=== PATIENT | female | born 1985 | race Caucasian/White ===

== ENCOUNTER 2017-10-13 18:03 | Inpatient (IN) | payer OTHER ==
[~2017-10-13] VITALS: Ht 160 cm; Wt 77.6 kg
[~2017-10-13 18:03] MED LIST: CARAFATE1 GM PO; CELEXA20 MG PO; FLUDROCORTISON0.1 MG PO; HYDROCORTISONE10 MG PO; HYDROCORTISONE20 MG PO; PANTOPRAZOLE SO40 MG PO; PROMETHAZINE HC25 M1 PO; SYNTHROID75 MCG PO; ULTRAM50 MG PO; ZOFRAN ODT4 MG; ZOFRAN ODT4 MG PO
--- OUTSIDE RECORDS SUMMARY | 2017-10-13 18:06 | XMS REPORT | Clinical Summary ---
Author Author [facility] Organization [facility] Address Unknown Phone Unavailable Care Team Providers Care Senior Care Provider Name Role Phone Robert Stokes MD PCP Allergies Active Allergy Reactions Severity Noted Date Comments Clindamycin 04/25/2016 Gabapentin 04/25/2016 Penicillins 04/25/2016 Current Medications Prescription Sig. Disp. Refills Start End Date Status Date hydrocortisone (CORTEF) Take 20 mg by mouth Active 10 MG tablet daily. PT throw up today 08/13/2017 hydrocortisone (CORTEF) Take 10 mg by mouth Active 10 MG tablet daily. PT throw up today 08/13/2017 [id number] Take 1 tablet by mouth Active n-dss 160 mg iron-1 mg-60 every morning. PT throw mcg tablet up today 08/13/2017 LORAZepam (ATIVAN) 1 MG Take 1 mg by mouth every Active tablet 12 (twelve) hours as needed for anxiety. zolpidem (AMBIEN) 10 mg Take 10 mg by mouth Active tablet nightly as needed for sleep. promethazine (PHENERGAN) Insert 1 suppository (25 10 0 09/16/1908/05 Active 25 MG suppository mg total) into the rectum suppository 18 18 every 6 (six) hours as needed for nausea or vomiting for up to 30 days. promethazine (PHENERGAN) Take 1 tablet (12.5 mg 10 tablet 0 09/16/19 10/16/19 Active 12.5 MG tablet total) by mouth every 6 18 18 (six) hours as needed for nausea or vomiting for up to 30 days. sulfamethoxazole-trimetho Take 1 tablet by mouth 2 14 tablet 0 07/22/19 prim (BACTRIM DS) 800-160 (two) times a day for 7 17 18 mg per tablet days. smx-tmp DS (BACTRIM) 800-160 mg tabs (1tab q12 D10) ondansetron ODT (ZOFRAN Take 1 tablet (4 mg 15 tablet 0 07/15/2004/05 ODT) 4 MG disintegrating total) by mouth every 8 17 18 tablet (eight) hours as needed for nausea or vomiting for up to 10 days. levothyroxine (SYNTHROID, Take 75 mcg by mouth 09/13/19 Discontin LEVOXYL) 75 mcg tablet every morning. 18 ued mirtazapine (REMERON) 7.5 Take 1 tablet (7.5 mg 30 tablet 0 08/05/19 09/04/19 MG tablet total) by mouth nightly 18 18 for 30 days. clonAZEPAM (KlonoPIN) 0.5 Take 1 tablet (0.5 mg 15 tablet 0 08/05/19 08/10/19 MG tablet total) by mouth 3 (three) 18 18 times a day as needed for anxiety for up to 5 days. promethazine (PHENERGAN) Take 1 tablet (12.5 mg 21 tablet 0 08/05/19 08/12/19 12.5 MG tablet total) by mouth every 6 18 18 (six) hours as needed for nausea or vomiting for up to 7 days. QUEtiapine (SEROquel) 25 Take 1 tablet (25 mg 60 tablet 0 08/05/19 09/04/19 MG tablet total) by mouth 2 (two) 18 18 times a day for 30 days. pantoprazole (PROTONIX) Take 1 tablet (40 mg 30 tablet 0 08/05/19 40 MG EC tablet total) by mouth daily for 18 18 30 days. traMADol (ULTRAM) 50 mg Take 1 tablet (50 mg 21 tablet 0 08/05/19 tablet total) by mouth every 6 18 18 (six) hours as needed for moderate pain for up to 7 days. Active Problems Problem Noted Date Dehydration 08/04/2017 Intractable nausea and vomiting 08/03/2017 Anxiety 08/03/2017 Hypothyroidism 08/03/2017 Pheochromocytoma 08/03/2017 Gastroenteritis 08/03/2017 Addisonian crisis 08/02/2017 Encounters Date Type Specialty Care Team Description 09/13/2017 [facility] General Surgery Narendra Perez MD Addisonian crisis - Encounter Ricardo Garcia DO (Primary Dx); 09/15/2017 Stanley Murrieta MD Intractable vomiting with Mikey Eller MD nausea, unspecified vomiting type; Left flank pain; Dehydration 08/02/2017 [facility] Internal Medicine Jewel Chamberlain MD Addisonian crisis - Encounter Ricardo Garcia DO (Primary Dx); 08/05/2017 Dehydration; Intractable vomiting with nausea, unspecified vomiting type; Abdominal pain, unspecified abdominal location; Anemia, unspecified type; Anxiety 07/15/2017 Emergency Emergency Medicine Rosy Salas MD Cellulitis of left upper extremity (Primary Dx) 06/25/2017 Emergency Emergency Medicine [place] MD Electrolyte abnormality (Primary Dx) after 10/12/2016 Social History Tobacco Use Types Packs/Day Years Used Date Former Smoker Cigarettes Quit: 09/23/2016 Smokeless Tobacco: Never Used Alcohol Use Drinks/Week oz/Week Comments Yes occasional Sex Assigned at Date Recorded Not on file Last Filed Vital Signs Vital Sign Reading Time Taken Blood Pressure 114/69 09/15/2017 7:34 AM MACHINE ETCHER Pulse 109 09/15/2017 7:34 AM MACHINE ETCHER Temperature 36.7 C (98 F) 09/15/2017 7:34 AM MACHINE ETCHER Respiratory Rate 16 09/15/2017 7:34 AM MACHINE ETCHER Oxygen Saturation 99% 09/15/2017 7:34 AM MACHINE ETCHER Inhaled Oxygen - - Concentration Weight 65.8 kg (145 lb) 09/13/2017 12:42 PM MACHINE ETCHER Height 157.5 cm (5' 2") 09/13/2017 12:42 PM MACHINE ETCHER Body Mass Index 26.52 09/13/2017 12:42 PM MACHINE ETCHER Plan of Treatment Health Maintenance Due Date Last Done Comments PAP SMEAR 01/02/2004 INFLUENZA VACCINE 02/14/2017 Procedures Procedure Name Priority Date/Time Associated Diagnosis Comments MUSCULOSKELETAL Routine 07/16/2017 Results for this ULTRASOUND 10:36 AM MACHINE ETCHER procedure are in the results section. after 10/12/2016 Results * Urinalysis screen and microscopy, with reflex to culture (09/15/2017 12:30 AM) Only the most recent of 2 results within the time period is included. Component Value Ref Range Specimen site Clean catch Color, UA Colorless Appearance, UA Clear Specific gravity, UA 1.001 1.001 - 1.035 pH, UA 6.0 5.0 - 8.5 Protein, UA Negative Negative Glucose, UA 3+ (A) Negative Ketones, UA Negative Negative Bilirubin, UA Negative Negative Blood, UA Negative Negative Nitrite, UA Negative Negative Urobilinogen, UA Negative <2.0 Leukocyte esterase, UA Negative Negative WBC, UA 0-5 0 - 4 /HPF RBC, UA 0-5 0 - 2 /HPF Bacteria, UA Trace None seen Yeast, UA None seen Yeast with pseudohyphae, None seen UA Specimen Performing Laboratory Urine [facility] DEPARTMENT OF PATHOLOGY AND GENOMIC MEDICINE [address] [place] [address] [place] [address] * hCG qualitative, urine screen (09/15/2017 12:30 AM) Only the most recent of 2 results within the time period is included. Component Value Ref Range hCG qualitative, urine Negative Negative Comment: The manufacturers stated sensitivity of HcG test for serum is >/=10 mIU/ml and urine is >/=20mIU/ml. Specimen Performing Laboratory Urine [facility] DEPARTMENT OF PATHOLOGY AND GENOMIC MEDICINE [address] [place] [address] [place] [address] * Estimated GFR (09/14/2017 6:23 AM) Only the most recent of 6 results within the time period is included. Component Value Ref Range GFR Non Af Amer 82 mL/min/1.73 m2 GFR Af Amer >90 mL/min/1.73 m2 Comment: Chronic kidney disease: <60 mL/min/1.73m2 Kidney failure: <15 mL/min/1.73m2 The estimated GFR is calculated from the IDMS-traceable Modification of Diet in Renal Disease Equation. The accuracy of the calculation is poor when the creatinine is normal. Calculated values >90 mL/min/1.73m2 are not reported. This equation has not been validated in children (<18 years), women, the elderly (>70 years), or ethnic groups other than Caucasians and Americans. Specimen Performing Laboratory Plasma specimen [facility] DEPARTMENT OF PATHOLOGY AND GENOMIC MEDICINE [address] [place] [address] [place] [address] * CBC with platelet and differential (09/14/2017 6:23 AM) Only the most recent of 6 results within the time period is included. Component Value Ref Range WBC 11.44 (H) 4.50 - 11.00 k/uL RBC 4.10 (L) 4.20 - 5.50 m/uL HGB 11.8 (L)Comment: reran other result is 11.8 12.0 - 16.0 g/dL ?received > 1800 ml fluid HCT 36.1 (L) 37.0 - 47.0 % MCV 88.0 82.0 - 100.0 fL MCH 28.8 27.0 - 34.0 pg MCHC 32.7 31.0 - 37.0 g/dL RDW - SD 46.0 37.0 - 55.0 fL MPV 10.5 8.8 - 13.2 fL Platelet count 307 150 - 400 k/uL Nucleated RBC 0.00 /100 WBC Neutrophils 71.2 (H) 39.0 - 69.0 % Lymphocytes 21.6 (L) 25.0 - 45.0 % Monocytes 6.3 0.0 - 10.0 % Eosinophils 0.2 0.0 - 5.0 % Basophils 0.3 0.0 - 1.0 % Immature granulocytes 0.4Comment: "Immature granulocytes" 0.0 - 1.0 % (promyelocytes, myelocytes, metamyelocytes) Specimen Performing Laboratory Blood [facility] PATHOLOGY AND [facility] [address] [place] [address] * Basic metabolic panel (09/14/2017 6:23 AM) Only the most recent of 3 results within the time period is included. Component Value Ref Range Sodium 134 (L) 135 - 148 mEq/L Potassium 4.6 3.5 - 5.0 mEq/L Chloride 102 98 - 112 mEq/L CO2 22 (L) 24 - 31 mEq/L Anion gap 10 7 - 15 mEq/L Comment: Starting from October , anion gap calculation no longer incorporates potassium. Please note the change. BUN 11 6 - 20 mg/dL Creatinine 0.8 0.5 - 0.9 mg/dL Glucose 89 65 - 99 mg/dL Calcium 10.5 (H) 8.3 - 10.2 mg/dL Specimen Performing Laboratory Plasma specimen [facility] PATHOLOGY AND [facility] [address] [place] [address] * Troponin (09/13/2017 5:26 PM) Only the most recent of 2 results within the time period is included. Component Value Ref Range Troponin <0.300 0.000 - 0.300 ng/mL Comment: 0.30 - 1.49 ng/ml May indicate increased risk of acute coronary syndrome. >=1.5 ng/ml Consistent with acute myocardial infarction. The diagnostic value of a single normal or non-diagnostic result is questionable. Serial samples at 2-6 hour intervals are required to rule out acute myocardial injury. Specimen Performing Laboratory Plasma specimen [facility] DEPARTMENT OF PATHOLOGY AND GENOMIC MEDICINE [address] [place] [address] * ECG 12 lead (09/13/2017 3:28 PM) Only the most recent of 3 results within the time period is included. Component Value Ref Range Ventricular rate 95 Atrial rate 95 MO interval 156 QRSD interval 88 QT interval 356 QTC interval 447 P axis 1 49 QRS axis 1 70 T wave axis 38 EKG impression Normal sinus rhythm-Normal ECG-In automated comparison with ECG of 02-AUG-2017 09:52,-No significant change was found- Specimen Performing Laboratory [facility] [address] [place] [address] * CT Abdomen Pelvis W Wo Contrast (09/13/2017 3:07 PM) Specimen Performing Laboratory [facility] [address] [place] [address] Narrative EXAMINATION:CT ABDOMEN PELVIS W WO CONTRAST CLINICAL HISTORY:L flank painpossible Flathead's crisis vs renal stone vs perinephric absces TECHNIQUE: CT of the abdomen and pelvis was performed without contrast utilizing renal stone protocol. Subsequently, postcontrast CT of the abdomen and pelvis was obtained with multiphase renal mass and CT urogram protocol. Sagittal and coronal computerized reformatted images were also obtained. COMPARISON:None. FINDINGS: There is a small 11 mm apparent cyst within the liver increased slightly when compared the patient's previous from September 30, 2014 at which time it measured approximately 9 mm. The liver otherwise appears normal in size and texture. The spleen appears unremarkable. The adrenal glands are diminutive and not well-visualized. There are clips in the gallbladder fossa from previous cholecystectomy. The pancreas and adrenal glands appear normal. There is moderate gas and stool present in the colon. The appendix appears normal. The urinary bladder appears unremarkable. The uterus is somewhat heterogeneous in appearance. There appear to be follicles associated with both ovaries. There is no substantial free fluid noted in the cul-de-sac. There are no inflammatory changes identified involving bowel The kidneys are not obstructed there are no calculi noted on either side. IMPRESSION: 1. Small follicles associated with the ovaries. 2. There is no perinephric abscess or other renal abnormality or perirenal abnormality. 3. 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 No definitive calcifications in the area of the adrenal glands are visualized. 4. Post cholecystectomy. 5. Small cyst within the liver adjacent to the falciform ligament [id number] Procedure Note Hm Interface, Radiology Results Incoming - 09/13/2017 3:37 PM MACHINE ETCHER EXAMINATION: CT ABDOMEN PELVIS W WO CONTRAST CLINICAL HISTORY: L flank pain possible Rigo's crisis vs renal stone vs perinephric absces TECHNIQUE: CT of the abdomen and pelvis was performed without contrast utilizing renal stone protocol. Subsequently, postcontrast CT of the abdomen and pelvis was obtained with multiphase renal mass and CT urogram protocol. Sagittal and coronal computerized reformatted images were also obtained. COMPARISON: None. FINDINGS: There is a small 11 mm apparent cyst within the liver increased slightly when compared the patient's previous from September 30, 2014 at which time it measured approximately 9 mm. The liver otherwise appears normal in size and texture. The spleen appears unremarkable. The adrenal glands are diminutive and not well-visualized. There are clips in the gallbladder fossa from previous cholecystectomy. The pancreas and adrenal glands appear normal. There is moderate gas and stool present in the colon. The appendix appears normal. The urinary bladder appears unremarkable. The uterus is somewhat heterogeneous in appearance. There appear to be follicles associated with both ovaries. There is no substantial free fluid noted in the cul-de-sac. There are no inflammatory changes identified involving bowel The kidneys are not obstructed there are no calculi noted on either side. IMPRESSION: 1. Small follicles associated with the ovaries. 2. There is no perinephric abscess or other renal abnormality or perirenal abnormality. 3. 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 No definitive calcifications in the area of the adrenal glands are visualized. 4. Post cholecystectomy. 5. Small cyst within the liver adjacent to the falciform ligament [id number] * Partial thromboplastin time, activated (09/13/2017 1:50 PM) Only the most recent of 2 results within the time period is included. Component Value Ref Range PTT 29.9 23.0 - 36.0 sec Comment: PTT therapeutic range for unfractionated heparin is 61.0-112.0 seconds which corresponds to Anti-Xa 0.3-0.7 U/ml. Specimen Performing Laboratory Blood [facility] PATHOLOGY [address] [place] [address] * Prothrombin time with INR (09/13/2017 1:50 PM) Only the most recent of 2 results within the time period is included. Component Value Ref Range Prothrombin time 13.1 12.0 - 15.0 sec INR 1.0 Comment: The International Normalized Ratio (INR) is a therapeutic monitoring tool for patients who are stable on oral anticoagulant therapy. An INR of 2.0-3.0 is suggested for deep vein thrombosis/pulmonary embolism. Specimen Performing Laboratory Blood [facility] PATHOLOGY AND [address] [place] [address] * hCG qualitative, serum screen (09/13/2017 1:50 PM) Component Value Ref Range hCG qualitative, serum Negative Specimen Performing Laboratory Blood [facility] PATHOLOGY [address] [place] [address] * Magnesium level (09/13/2017 1:50 PM) Only the most recent of 2 results within the time period is included. Component Value Ref Range Magnesium 2.2 1.6 - 2.6 mg/dL Specimen Performing Laboratory Plasma specimen [facility] PATHOLOGY AND [address] [place] [address] * Lipase level (09/13/2017 1:50 PM) Only the most recent of 3 results within the time period is included. Component Value Ref Range Lipase 41 13 - 60 U/L Specimen Performing Laboratory Plasma specimen [facility] PATHOLOGY [address] [place] [address] * Hepatic function panel (09/13/2017 1:50 PM) Component Value Ref Range Albumin 4.5 3.5 - 5.0 g/dL Total bilirubin 0.5 0.0 - 1.2 mg/dL Bilirubin direct 0.1 0.0 - 0.3 mg/dL Alkaline phosphatase 51 35 - 104 U/L Protein 7.8 6.3 - 8.3 g/dL Comment: [place] 4.6-7.0 g/dL 1 week 4.4-7.6 g/dL 7 months-1year 5.1-7.3 g/dL 1-2 years 5.6-7.5 g/dL >3 years 6.0-8.0 g/dL 18-150 6.3-8.3 g/dL ALT 18 5 - 50 U/L AST 24 10 - 35 U/L Specimen Performing Laboratory Plasma specimen [facility] DEPARTMENT OF PATHOLOGY AND GENOMIC MEDICINE [address] [place] [address] * ECG ED Preliminary Interpretation - NOT AN ORDER (09/13/2017 1:05 PM) Only the most recent of 3 results within the time period is included. Dora Perez MD 09/13/20176:34 PM ECG ED Preliminary Interpretation - Not an Order Performed by: NARENDRA PEREZ Authorized by: NARENDRA PEREZ ECG reviewed by ED Physician in the absence of a supply clerk: yes Previous ECG: Previous ECG:Compared to current Comparison ECG info:08/03/17 Similarity:No change Interpretation: Interpretation: normal Rate: ECG rate:95 ECG rate assessment: normal Rhythm: Rhythm: sinus rhythm Ectopy: Ectopy: none QRS: QRS axis:Normal Conduction: Conduction: normal ST segments: ST segments:Normal T waves: T waves: normal * Cortisol level, random (08/03/2017 5:15 AM) Only the most recent of 2 results within the time period is included. Component Value Ref Range Cortisol, random <1 ug/dL Comment: Reference Ranges are not established for non-timed Cortisol levels. Reference Range for Timed Cortisol: 6 - 10 AM 6 - 18 ug/dl 4 - 8 PM 3 - 11 ug/dl Specimen Performing Laboratory Plasma specimen [facility] DEPARTMENT OF PATHOLOGY AND GENOMIC MEDICINE [address] [place] [address] * Comprehensive metabolic panel (08/03/2017 5:15 AM) Only the most recent of 3 results within the time period is included. Component Value Ref Range Sodium 142 135 - 148 mEq/L Potassium 3.5 3.5 - 5.0 mEq/L Chloride 106 98 - 112 mEq/L CO2 25 24 - 31 mEq/L Anion gap 11 7 - 15 mEq/L Comment: Starting from October , anion gap calculation no longer incorporates potassium. Please note the change. BUN 4 (L) 6 - 20 mg/dL Creatinine 0.8 0.5 - 0.9 mg/dL Glucose 94 65 - 99 mg/dL Calcium 9.4 8.3 - 10.2 mg/dL Protein 5.5 (L) 6.3 - 8.3 g/dL Comment: [place] 4.6-7.0 g/dL 1 week 4.4-7.6 g/dL 7 months-1year 5.1-7.3 g/dL 1-2 years 5.6-7.5 g/dL >3 years 6.0-8.0 g/dL 18-150 6.3-8.3 g/dL Albumin 3.2 (L) 3.5 - 5.0 g/dL A/G ratio 1.4 0.7 - 3.8 Alkaline phosphatase 47 35 - 104 U/L AST 12 10 - 35 U/L ALT 9 5 - 50 U/L Total bilirubin <0.2 0.0 - 1.2 mg/dL Specimen Performing Laboratory Plasma specimen [facility] PATHOLOGY AND [facility] [id number] [place] [address] [place] [address] * hCG quantitative, serum (08/02/2017 1:52 PM) Component Value Ref Range hCG quantitative, serum 1 0 - 5 mIU/mL Comment: Reference range for HCG Quant applies to males and non- females. Post Menopausal 0.0 - 8.1 mIU/mL Specimen Performing Laboratory Plasma specimen [facility] DEPARTMENT OF PATHOLOGY AND [facility] MEDICINE [address] [place] [address] * CT Abdomen Pelvis W Contrast (08/02/2017 1:02 PM) Specimen Performing Laboratory [facility] [address] [place] [address] Narrative EXAMINATION:CT ABDOMEN PELVIS W CONTRAST CLINICAL HISTORY:N V COMPARISON:October 14, 2015 TECHNIQUE: Multiple axial CT images of the Abdomen and pelvis were obtained With IV contrast . Sagittal and coronal reconstructions were done. CT imaging was performed with iterative reconstruction technique and/or automated exposure control to reduce radiation dose. FINDINGS: HEPATOBILIARY:Stable hepatic hypodensity likely a cyst measures 1.3 cm. No suspicious focal hepatic lesions. No intrahepatic biliary dilation. The main portal vein is patent. GALLBLADDER: Absent. SPLEEN:No splenomegaly. PANCREAS:No focal masses or ductal dilation. ADRENALS:No adrenal nodules. KIDNEYS:No hydronephrosis, stones or solid masses. PERITONEUM/RETROPERITONEUM:No free air or fluid. No lymphadenopathy. ABDOMINAL AORTA/IVC: No aneurysm or dissection. GI TRACT:Visualized portions of the bowel demonstrate no distention or wall thickening. There are no signs of appendicitis or diverticulitis. PELVIC ORGANS/BLADDER:The urinary bladder is fluid-filled. Uterus and left ovary are unremarkable. A right ovarian cyst is stable at 2 cm. BONES AND SOFT TISSUES:No acute abnormality. VISUALIZED LOWER CHEST: No acute abnormality. IMPRESSION: No acute abnormality. [facility]-[id number] Procedure Note [facility], Radiology Results - 08/02/2017 1:23 PM MACHINE ETCHER EXAMINATION: CT ABDOMEN PELVIS W CONTRAST CLINICAL HISTORY: N V COMPARISON: October 14, 2015 TECHNIQUE: Multiple axial CT images of the Abdomen and pelvis were obtained With IV contrast . Sagittal and coronal reconstructions were done. CT imaging was performed with iterative reconstruction technique and/or automated exposure control to reduce radiation dose. FINDINGS: HEPATOBILIARY: Stable hepatic hypodensity likely a cyst measures 1.3 cm. No suspicious focal hepatic lesions. No intrahepatic biliary dilation. The main portal vein is patent. GALLBLADDER: Absent. SPLEEN: No splenomegaly. PANCREAS: No focal masses or ductal dilation. ADRENALS: No adrenal nodules. KIDNEYS: No hydronephrosis, stones or solid masses. PERITONEUM/RETROPERITONEUM: No free air or fluid. No lymphadenopathy. ABDOMINAL AORTA/IVC: No aneurysm or dissection. GI TRACT: Visualized portions of the bowel demonstrate no distention or wall thickening. There are no signs of appendicitis or diverticulitis. PELVIC ORGANS/BLADDER: The urinary bladder is fluid-filled. Uterus and left ovary are unremarkable. A right ovarian cyst is stable at 2 cm. BONES AND SOFT TISSUES: No acute abnormality. VISUALIZED LOWER CHEST: No acute abnormality. IMPRESSION: No acute abnormality. [facility]-[id number] * Adrenocorticotropic hormone (08/02/2017 11:35 AM) Component Value Ref Range Adrenocorticotropic 99.1 (H) 7.2 - 63.3 pg/mL hormone Specimen Performing Laboratory Blood [facility] DEPARTMENT OF PATHOLOGY AND GENOMIC MEDICINE [address] [place] [address] * Influenza antigen (08/02/2017 9:45 AM) Component Value Ref Range Influenza antigen Negative for Influenza A/B antigen. Comment: Specimen Information Specimen Source: Nares Specimen Site: Not specified Specimen Performing Laboratory Nares - Not specified [facility] PATHOLOGY [address] [place] [address] * Smear review (08/02/2017 9:40 AM) Component Value Ref Range Platelet slide review Decreased (A) Specimen Performing Laboratory [facility] PATHOLOGY AND [address] [place] [address] * Thyroid stimulating hormone (08/02/2017 9:40 AM) Component Value Ref Range TSH 3.17 0.27 - 4.20 uIU/mL Specimen Performing Laboratory Plasma specimen [facility] PATHOLOGY [address] [place] [address] * T4, free (08/02/2017 9:40 AM) Component Value Ref Range T4, free 1.04 0.90 - 1.70 ng/dL Specimen Performing Laboratory Plasma specimen [facility] PATHOLOGY AND [address] [place] [address] * MUSCULOSKELETAL ULTRASOUND (07/16/2017 10:36 AM) Narrative Rosy Salas MD 07/16/2017 10:36 AM Musculoskeletal Ultrasound Performed by: ROSY SALAS Authorized by: ROSY SALAS Procedure details: Indications: abscess and cellulitis Transverse view:Visualized Longitudinal view:Visualized Findings: Fracture: not identified Tendon rupture: not identified Muscle tear: not identified Infant hip effusion: not identified Joint effusion: not identified Comments: Cobblestoning c/w cellulitis seen over the right upper extremity above the elbow in a small area about the size of a half-dollar. No fluid collections amenable to drainage are seen. * Phosphorus level (06/25/2017 8:11 AM) Component Value Ref Range Phosphorus 2.8 2.4 - 4.5 mg/dL Specimen Performing Laboratory Plasma specimen [facility] DEPARTMENT PATHOLOGY [address] [place] [address] after 10/12/2016 Insurance Payer Benefit Subscriber ID Type Phone Address Plan / Group PENDING MEDICAID PENDING Medicaid MEDICAID
--- OUTSIDE RECORDS SUMMARY | 2017-10-13 18:06 | XMS REPORT ---
Author Author 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 Allergies, Adverse Reactions, Alerts This patient has no known allergies or adverse reactions. Medications This patient has no known medications. Results Test Description Test Time Test Comments Text Results Atomic Results Result Comments CBC W/PLT COUNT & AUTO DIFFERENTIAL 2017-03-18 14:30:00 WHITE BLOOD CELL COUNT (BEAKER) (test lyuq=927) 6.5 K/ L 3.5-10.5 RED BLOOD CELL COUNT (BEAKER) (test vmrf=008) 4.27 M/ L 3.93-5.22 HEMOGLOBIN (BEAKER) (test yysb=950) 12.6 GM/DL 11.2-15.7 HEMATOCRIT (BEAKER) (test nnqk=654) 39.2 % 34.1-44.9 MEAN CORPUSCULAR VOLUME (BEAKER) (test tduj=644) 91.8 fL 79.4-94.8 MEAN CORPUSCULAR HEMOGLOBIN (BEAKER) (test iyll=464) 29.5 pg 25.6-32.2 MEAN CORPUSCULAR HEMOGLOBIN CONC (BEAKER) (test erwe=070) 32.1 GM/DL 32.2- 35.5 RED CELL DISTRIBUTION WIDTH (BEAKER) (test vtto=725) 14.4 % 11.7-14.4 PLATELET COUNT (BEAKER) (test olst=080) 331 K/CU MM 150-450 MEAN PLATELET VOLUME (BEAKER) (test bqip=503) 10.5 fL 9.4-12.3 NUCLEATED RED BLOOD CELLS (BEAKER) (test vzcx=139) 0 /100 WBC 0-0 NEUTROPHILS RELATIVE PERCENT (BEAKER) (test dved=613) 36 % LYMPHOCYTES RELATIVE PERCENT (BEAKER) (test ojnp=934) 53 % MONOCYTES RELATIVE PERCENT (BEAKER) (test xcxs=718) 6 % EOSINOPHILS RELATIVE PERCENT (BEAKER) (test wozn=224) 4 % BASOPHILS RELATIVE PERCENT (BEAKER) (test rygy=808) 1 % NEUTROPHILS ABSOLUTE COUNT (BEAKER) (test fdww=398) 2.32 K/ L 1.56-6.13 LYMPHOCYTES ABSOLUTE COUNT (BEAKER) (test ubki=218) 3.40 K/ L 1.18-3.74 MONOCYTES ABSOLUTE COUNT (BEAKER) (test xnok=842) 0.41 K/ L 0.24-0.36 EOSINOPHILS ABSOLUTE COUNT (BEAKER) (test fuky=323) 0.28 K/ L 0.04-0.36 BASOPHILS ABSOLUTE COUNT (BEAKER) (test fzyq=384) 0.03 K/ L 0.01-0.08 IMMATURE GRANULOCYTES-RELATIVE PERCENT (BEAKER) (test feka=3106) 0 % 0-1 (MANUAL DIFFERENTIAL)2017-03-18 14:30:00* Test Item Value Reference Range Comments TOTAL COUNTED (BEAKER) (test zfmo=0624) WBC MORPHOLOGY (BEAKER) (test gytx=945) Normal PLT MORPHOLOGY (BEAKER) (test voei=304) Normal RBC MORPHOLOGY (BEAKER) (test kurd=180) Normal [id number] 14:03:00* Test Item Value Reference Range Comments LIPASE (BEAKER) (test xitw=662) 28 U/L 8-78 [id number] 14:03:00* Test Item Value Reference Range Comments AMYLASE (BEAKER) (test ubyg=623) 63 U/L 25-125 HEPATIC FUNCTION [id number] 14:03:00* Test Item Value Reference Range Comments TOTAL PROTEIN (BEAKER) (test igrh=678) 7.3 gm/dL 6.0-8.3 ALBUMIN (BEAKER) (test bvdj=3062) 3.9 g/dL 3.5-5.0 BILIRUBIN TOTAL (BEAKER) (test ujcj=006) 0.5 mg/dL 0.2-1.2 BILIRUBIN DIRECT (BEAKER) (test kskn=544) 0.2 mg/dL 0.1-0.5 ALKALINE PHOSPHATASE (BEAKER) (test nhwj=716) 64 U/L 40-150 AST (SGOT) (BEAKER) (test ccgm=553) 18 U/L 5-34 ALT (SGPT) (BEAKER) (test yzit=560) 11 U/L 6-55 URINALYSIS W/ REFLEX URINE [id number] 13:43:00* Test Item Value Reference Range Comments COLOR (BEAKER) (test zdaa=136) Yellow CLARITY (BEAKER) (test qgto=939) Hazy SPECIFIC GRAVITY UA (BEAKER) (test uuum=965) 1.016 1.001-1.035 PH UA (BEAKER) (test acno=822) 5.5 5.0-8.0 PROTEIN UA (BEAKER) (test nddc=761) Negative Negative GLUCOSE UA (BEAKER) (test bjxm=230) Negative Negative KETONES UA (BEAKER) (test jfxs=595) Negative Negative BILIRUBIN UA (BEAKER) (test xufy=361) Negative Negative BLOOD UA (BEAKER) (test edrw=585) Negative Negative NITRITE UA (BEAKER) (test cddd=874) Negative Negative LEUKOCYTE ESTERASE UA (BEAKER) (test hhzc=665) Large Negative UROBILINOGEN UA (BEAKER) (test viwu=139) 0.2 mg/dL 0.2-1.0 RBC UA (BEAKER) (test nzsq=190) 0 /HPF WBC UA (BEAKER) (test wmcn=713) 1 /HPF BACTERIA (BEAKER) (test rfyj=525) Rare MUCUS (BEAKER) (test khaq=1247) Rare SQUAMOUS EPITHELIAL (BEAKER) (test rjey=656) 4 /HPF HYALINE CASTS (BEAKER) (test ctba=889) 2 /LPF SOURCE(BEAKER) (test axbg=0005) SCREEN, [id number] 13:42:00* Test Item Value Reference Range Comments TEST URINE (BEAKER) (test aori=018) Negative BASIC METABOLIC [id number] 13:21:00* Test Item Value Reference Range Comments SODIUM (BEAKER) (test wefj=303) 135 meq/L 136-145 POTASSIUM (BEAKER) (test nuvv=420) 4.3 meq/L 3.5-5.1 CHLORIDE (BEAKER) (test zrji=756) 109 meq/L 98-107 CO2 (BEAKER) (test vwza=181) 19 meq/L 22-29 BLOOD UREA NITROGEN (BEAKER) (test vknx=414) 10 mg/dL 7-21 CREATININE (BEAKER) (test disd=149) 0.84 mg/dL 0.57-1.25 GLUCOSE RANDOM (BEAKER) (test rfgw=692) 75 mg/dL 70-105 CALCIUM (BEAKER) (test wmcf=395) 10.4 mg/dL 8.4-10.2 EGFR (BEAKER) (test abzd=1633) 78 mL/min/1.73 sq m ESTIMATED GFR IS NOT ACCURATE CREATININE CLEARANCE IN PREDICTING GLOMERULAR FILTRATION RATE. ESTIMATED GFR IS NOT APPLICABLE FOR DIALYSIS PATIENTS. BLOOD [id number] 12:20:00* Test Item Value Reference Range Comments CULTURE (BEAKER) (test lsfu=8778) No growth in 5 days BLOOD [id number] 12:20:00* Test Item Value Reference Range Comments CULTURE (BEAKER) (test fwij=2105) No growth in 5 days BLOOD [id number] 12:20:00* Test Item Value Reference Range Comments CULTURE (BEAKER) (test nxap=8172) No growth in 5 days POCT-GLUCOSE [id number] 12:13:00* Test Item Value Reference Range Comments POC-GLUCOSE METER (BEAKER) (test edta=6664) 153 mg/dL 70-110 TESTED AT [place] [id number] [facility] [address] POCT-GLUCOSE [id number] 08:00:00* Test Item Value Reference Range Comments POC-GLUCOSE METER (BEAKER) (test guip=4344) 86 mg/dL 70-110 TESTED AT [address] [address] CBC (HEMOGRAM ONLY)2016-12-26 06:37:00* Test Item Value Reference Range Comments WHITE BLOOD CELL COUNT (BEAKER) (test dprs=691) 5.9 K/ L 4.0-10.0 RED BLOOD CELL COUNT (BEAKER) (test ovde=900) 3.73 M/ L 4.00-5.00 HEMOGLOBIN (BEAKER) (test eejc=083) 11.2 GM/DL 12.0-15.0 HEMATOCRIT (BEAKER) (test ntkn=214) 34.4 % 36.0-45.0 MEAN CORPUSCULAR VOLUME (BEAKER) (test cejh=518) 92.3 fL 82.0-99.0 MEAN CORPUSCULAR HEMOGLOBIN (BEAKER) (test zgzn=693) 30.0 pg 27.0-33.0 MEAN CORPUSCULAR HEMOGLOBIN CONC (BEAKER) (test siyl=047) 32.5 GM/DL 32.0- 36.0 RED CELL DISTRIBUTION WIDTH (BEAKER) (test vfqu=844) 14.1 % 10.3-14.2 PLATELET COUNT (BEAKER) (test strk=573) 256 K/CU MM 150-430 MEAN PLATELET VOLUME (BEAKER) (test uwep=610) 8.1 fL 6.5-10.5 POCT-GLUCOSE [id number] 06:19:00* Test Item Value Reference Range Comments POC-GLUCOSE METER (BEAKER) (test xxlf=8339) 125 mg/dL 70-110 TESTED AT [place] [id number] POCT-GLUCOSE [id number] 06:14:00* Test Item Value Reference Range Comments POC-GLUCOSE METER (BEAKER) (test guwz=6091) 146 mg/dL 70-110 TESTED AT [address] [address] POCT-GLUCOSE [id number] 05:33:00* Test Item Value Reference Range Comments POC-GLUCOSE METER (BEAKER) (test cbzu=9093) 134 mg/dL 70-110 TESTED AT [address] [address] POCT-GLUCOSE [id number] 05:26:00* Test Item Value Reference Range Comments POC-GLUCOSE METER (BEAKER) (test lovj=0097) 108 mg/dL 70-110 TESTED AT [address] [address] POCT-GLUCOSE [id number] 05:04:00* Test Item Value Reference Range Comments POC-GLUCOSE METER (BEAKER) (test vgxz=8867) 135 mg/dL 70-110 TESTED AT [address] [address] BASIC METABOLIC [id number] 05:03:00* Test Item Value Reference Range Comments SODIUM (BEAKER) (test exmx=015) 139 meq/L 136-145 POTASSIUM (BEAKER) (test lhgq=431) 4.2 meq/L 3.5-5.1 CHLORIDE (BEAKER) (test zigj=354) 106 meq/L 98-107 CO2 (BEAKER) (test egge=816) 25 meq/L 22-29 BLOOD UREA NITROGEN (BEAKER) (test dhur=511) 3 mg/dL 7-21 CREATININE (BEAKER) (test aquj=900) 0.99 mg/dL 0.57-1.25 GLUCOSE RANDOM (BEAKER) (test sqyv=417) 124 mg/dL 70-105 CALCIUM (BEAKER) (test udud=035) 10.2 mg/dL 8.4-10.2 EGFR (BEAKER) (test lbmt=5001) 65 mL/min/1.73 sq m ESTIMATED GFR IS NOT ACCURATE CREATININE CLEARANCE IN PREDICTING GLOMERULAR FILTRATION RATE. ESTIMATED GFR IS NOT APPLICABLE FOR DIALYSIS PATIENTS. POCT-GLUCOSE [id number] 05:02:00* Test Item Value Reference Range Comments POC-GLUCOSE METER (BEAKER) (test szna=9572) 132 mg/dL 70-[address] [facility] [address] [facility] [address] POCT-GLUCOSE [id number] 04:59:00* Test Item Value Reference Range Comments POC-GLUCOSE METER (BEAKER) (test oghv=0155) 113 mg/dL 70-[address] [facility] [address] [facility] [address] BASIC METABOLIC [id number] 18:19:00* Test Item Value Reference Range Comments SODIUM (BEAKER) (test bknx=205) 139 meq/L 136-145 POTASSIUM (BEAKER) (test ckzt=014) 4.1 meq/L 3.5-5.1 CHLORIDE (BEAKER) (test aiqd=730) 108 meq/L 98-107 CO2 (BEAKER) (test hzpl=917) 24 meq/L 22-29 BLOOD UREA NITROGEN (BEAKER) (test wcij=634) 5 mg/dL 7-21 CREATININE (BEAKER) (test txcg=933) 0.88 mg/dL 0.57-1.25 GLUCOSE RANDOM (BEAKER) (test ptig=645) 90 mg/dL 70-105 CALCIUM (BEAKER) (test iunx=610) 9.9 mg/dL 8.4-10.2 EGFR (BEAKER) (test nfnt=1241) 74 mL/min/1.73 sq m ESTIMATED GFR IS NOT ACCURATE CREATININE CLEARANCE IN PREDICTING GLOMERULAR FILTRATION RATE. ESTIMATED GFR IS NOT APPLICABLE FOR DIALYSIS PATIENTS. URINALYSIS W/ [id number] 14:45:00* Test Item Value Reference Range Comments COLOR (BEAKER) (test xjnf=674) Colorless CLARITY (BEAKER) (test igph=231) Clear SPECIFIC GRAVITY UA (BEAKER) (test ljtb=694) 1.006 1.001-1.035 PH UA (BEAKER) (test szew=878) 5.0 5.0-8.0 PROTEIN UA (BEAKER) (test tmwa=405) Negative Negative GLUCOSE UA (BEAKER) (test nkef=532) Negative Negative KETONES UA (BEAKER) (test fdbt=427) Negative Negative BILIRUBIN UA (BEAKER) (test bcql=103) Negative Negative BLOOD UA (BEAKER) (test gjhf=350) Moderate Negative NITRITE UA (BEAKER) (test ovnj=775) Negative Negative LEUKOCYTE ESTERASE UA (BEAKER) (test lhnd=091) Negative Negative UROBILINOGEN UA (BEAKER) (test zlga=879) 0.2 mg/dL 0.2-1.0 RBC UA (BEAKER) (test goec=672) 1 /HPF WBC UA (BEAKER) (test zdzv=788) 1 /HPF SQUAMOUS EPITHELIAL (BEAKER) (test yidl=227) 1 /HPF SOURCE(BEAKER) (test uqxs=0442) Urine, Clean Catch CBC W/PLT COUNT & AUTO [id number] 12:43:00* Test Item Value Reference Range Comments WHITE BLOOD CELL COUNT (BEAKER) (test ylxq=772) 4.9 K/ L 4.0-10.0 RED BLOOD CELL COUNT (BEAKER) (test rkoi=130) 4.27 M/ L 4.00-5.00 HEMOGLOBIN (BEAKER) (test wehq=844) 12.2 GM/DL 12.0-15.0 HEMATOCRIT (BEAKER) (test lvly=434) 38.9 % 36.0-45.0 MEAN CORPUSCULAR VOLUME (BEAKER) (test ydwr=293) 91.1 fL 82.0-99.0 MEAN CORPUSCULAR HEMOGLOBIN (BEAKER) (test llqs=084) 28.6 pg 27.0-33.0 MEAN CORPUSCULAR HEMOGLOBIN CONC (BEAKER) (test mtpd=153) 31.4 GM/DL 32.0- 36.0 RED CELL DISTRIBUTION WIDTH (BEAKER) (test cxdj=962) 14.2 % 10.3-14.2 PLATELET COUNT (BEAKER) (test eqct=324) 287 K/CU MM 150-430 MEAN PLATELET VOLUME (BEAKER) (test smjn=995) 7.9 fL 6.5-10.5 NUCLEATED RED BLOOD CELLS (BEAKER) (test wsuf=269) 0 /100 WBC 0-0 NEUTROPHILS RELATIVE PERCENT (BEAKER) (test dqvz=446) 28 % LYMPHOCYTES RELATIVE PERCENT (BEAKER) (test owbq=504) 54 % MONOCYTES RELATIVE PERCENT (BEAKER) (test vxqt=507) 7 % EOSINOPHILS RELATIVE PERCENT (BEAKER) (test jrbr=241) 10 % BASOPHILS RELATIVE PERCENT (BEAKER) (test lgdx=144) 1 % NEUTROPHILS ABSOLUTE COUNT (BEAKER) (test gnmk=602) 1.35 K/ L 1.80-8.00 LYMPHOCYTES ABSOLUTE COUNT (BEAKER) (test odzh=225) 2.65 K/ L 1.48-4.50 MONOCYTES ABSOLUTE COUNT (BEAKER) (test bglt=190) 0.35 K/ L 0.00-1.30 EOSINOPHILS ABSOLUTE COUNT (BEAKER) (test jdwd=365) 0.49 K/ L 0.00-0.50 BASOPHILS ABSOLUTE COUNT (BEAKER) (test grje=387) 0.05 K/ L 0.00-0.20 0.00(MANUAL DIFFERENTIAL)2016-12-24 12:43:00* Test Item Value Reference Range Comments TOTAL COUNTED (BEAKER) (test fhul=6664) WBC MORPHOLOGY (BEAKER) (test jgps=879) Normal PLT MORPHOLOGY (BEAKER) (test gkca=115) Normal RBC MORPHOLOGY (BEAKER) (test jmnx=060) Normal TROPONIN [id number] 10:08:00* Test Item Value Reference Range Comments TROPONIN I (BEAKER) (test ppqj=155) < ng/mL 0.00-0.03 Effective 06/03/2014: Reference Range ChangeNew: 0.00-0.03 Previous 0.00- 0.15Troponin I (TnI) levels must be interpreted in the context of the presenting symptoms and the clinical findings. Elevated TnI levels indicate myocardial damage, but are not specific for ischemic heart disease. Elevated TnI levels are seen in patients with other cardiac conditions (including myocarditis and congestive heart failure), and slight TnI elevations occur in patients with other conditions, including sepsis, renal failure, acidosis, acute neurological disease, and persistent tachyarrhythmia.CREATINE KINASE (CK) , TOTAL AND [id number] 10:07:00* Test Item Value Reference Range Comments CREATINE KINASE TOTAL (BEAKER) (test newz=768) 33 U/L 29-200 CREATINE KINASE-MB (BEAKER) (test deog=003) 0.3 ng/mL 0.0-6.6 CREATINE KINASE-MB INDEX (BEAKER) (test qjrc=290) 0.9 % Effective 06/03/2014: CK-MB Reference Range ChangeNew: 0.0-6.6 Previous: 0.0- 4.9CK-MB Reference Range:<6.7 Normal6.7-10.0 Borderline>10.0 AbnormalT4, [id number] 21:27:00* Test Item Value Reference Range Comments FREE T4 (BEAKER) (test ajdk=413) 1.02 ng/dL 0.70-1.48 TSH/FREE T4 IF [id number] 20:38:00* Test Item Value Reference Range Comments THYROID STIMULATING HORMONE (BEAKER) (test xpgz=906) 6.96 uIU/mL 0.35-4.94 CALCIUM, [id number] 19:29:00* Test Item Value Reference Range Comments CALCIUM IONIZED (BEAKER) (test pfoy=809) 1.23 mmol/L 1.12-1.27 PH, BLOOD (BEAKER) (test twyb=0726) 7.37 BASIC METABOLIC [id number] 19:22:00* Test Item Value Reference Range Comments SODIUM (BEAKER) (test bkac=671) 134 meq/L 135-148 POTASSIUM (BEAKER) (test sxox=261) 5.1 meq/L 3.6-5.5 Test not performedThis is an appended report. These results have been appended to a previously final verified report. CHLORIDE (BEAKER) (test tfee=955) 100 meq/L 98-106 CO2 (BEAKER) (test ovaz=708) 19 meq/L 24-32 BLOOD UREA NITROGEN (BEAKER) (test uwfw=893) 11 mg/dL 10-26 CREATININE (BEAKER) (test fsxm=746) 0.70 mg/dL 0.50-1.20 GLUCOSE RANDOM (BEAKER) (test noaj=936) 81 mg/dL 70-110 CALCIUM (BEAKER) (test gctl=352) 11.4 mg/dL 8.5-10.5 EGFR (BEAKER) (test bofc=0466) 96 mL/min/1.73 sq m ESTIMATED GFR IS NOT ACCURATE CREATININE CLEARANCE IN PREDICTING GLOMERULAR FILTRATION RATE. ESTIMATED GFR IS NOT APPLICABLE FOR DIALYSIS PATIENTS. CBC (HEMOGRAM ONLY)2016-12-23 17:56:00* Test Item Value Reference Range Comments WHITE BLOOD CELL COUNT (BEAKER) (test gzeh=577) 8.2 K/ L 4.0-10.0 RED BLOOD CELL COUNT (BEAKER) (test izma=335) 4.98 M/ L 4.00-5.00 HEMOGLOBIN (BEAKER) (test egfy=125) 15.0 GM/DL 12.0-15.0 HEMATOCRIT (BEAKER) (test fstz=440) 44.5 % 36.0-45.0 MEAN CORPUSCULAR VOLUME (BEAKER) (test ftxn=853) 89.4 fL 82.0-99.0 MEAN CORPUSCULAR HEMOGLOBIN (BEAKER) (test caaj=726) 30.1 pg 27.0-33.0 MEAN CORPUSCULAR HEMOGLOBIN CONC (BEAKER) (test cicn=254) 33.7 GM/DL 32.0- 36.0 RED CELL DISTRIBUTION WIDTH (BEAKER) (test xses=917) % 10.3-14.2 Test not performed PLATELET COUNT (BEAKER) (test mmdw=845) 384 K/CU MM 150-430 CBC (HEMOGRAM ONLY)2016-11-25 00:19:00* Test Item Value Reference Range Comments WHITE BLOOD CELL COUNT (BEAKER) (test qemn=637) 10.1 K/ L 4.0-10.0 RED BLOOD CELL COUNT (BEAKER) (test gfgj=089) 4.51 M/ L 4.00-5.00 HEMOGLOBIN (BEAKER) (test hpho=886) 13.4 GM/DL 12.0-15.0 HEMATOCRIT (BEAKER) (test bmjx=973) 41.2 % 36.0-45.0 MEAN CORPUSCULAR VOLUME (BEAKER) (test efyq=330) 91.4 fL 82.0-99.0 MEAN CORPUSCULAR HEMOGLOBIN (BEAKER) (test glxx=201) 29.7 pg 27.0-33.0 MEAN CORPUSCULAR HEMOGLOBIN CONC (BEAKER) (test xeud=036) 32.5 GM/DL 32.0- 36.0 RED CELL DISTRIBUTION WIDTH (BEAKER) (test iptk=570) % 10.3-14.2 Test not done PLATELET COUNT (BEAKER) (test ojfj=743) 367 K/CU MM 150-430 HEPATIC FUNCTION [id number] 00:17:00* Test Item Value Reference Range Comments TOTAL PROTEIN (BEAKER) (test hfry=990) 7.4 gm/dL 6.0-8.5 ALBUMIN (BEAKER) (test jsad=8571) 3.9 g/dL 3.5-5.0 BILIRUBIN TOTAL (BEAKER) (test cgsc=481) 0.5 mg/dL 0.1-1.2 BILIRUBIN DIRECT (BEAKER) (test blxj=535) mg/dL 0.0-0.4 Test not done ALKALINE PHOSPHATASE (BEAKER) (test pqzs=771) 70 U/L 30-115 AST (SGOT) (BEAKER) (test hytb=578) 27 U/L 5-40 ALT (SGPT) (BEAKER) (test caty=449) 19 U/L 5-50 BASIC METABOLIC [id number] 00:16:00* Test Item Value Reference Range Comments SODIUM (BEAKER) (test mmib=237) 142 meq/L 135-148 POTASSIUM (BEAKER) (test zmuh=641) 4.2 meq/L 3.6-5.5 CHLORIDE (BEAKER) (test ovip=063) 99 meq/L 98-106 CO2 (BEAKER) (test jrgf=672) 27 meq/L 24-32 BLOOD UREA NITROGEN (BEAKER) (test odog=724) 10 mg/dL 10-26 CREATININE (BEAKER) (test yfub=639) 1.30 mg/dL 0.50-1.20 GLUCOSE RANDOM (BEAKER) (test erhn=125) 80 mg/dL 70-110 CALCIUM (BEAKER) (test owdd=588) 11.0 mg/dL 8.5-10.5 EGFR ([place]) (test vcie=8366) 47 mL/min/1.73 sq m ESTIMATED GFR IS NOT ACCURATE CREATININE CLEARANCE IN PREDICTING GLOMERULAR FILTRATION RATE. ESTIMATED GFR IS NOT APPLICABLE FOR DIALYSIS PATIENTS. [id number] 00:15:00* Test Item Value Reference Range Comments AMYLASE ([place]) (test grge=053) 47 U/L 30-110
--- OUTSIDE RECORDS SUMMARY | 2017-10-13 18:06 | XMS REPORT | Clinical Summary ---
Author Author JENNIFER [facility] Address Unknown Phone Unavailable Care Team Providers Care [employer] Name Role Phone PCP Unavailable Allergies Active Allergy Reactions Severity Noted Date Comments Clindamycin Hives, Itching High 01/08/2016 Penicillins Anaphylaxis, Hives, High 10/27/2014 Shortness Of Breath, Rash Gabapentin Anxiety Medium 01/08/2016 Have altered mental status, confusion. Current Medications Prescription Sig. Disp. Refills Start End Date Status Date hydrocortisone (CORTEF) Take 20 mg by mouth daily Active 20 MG tablet 20 mg every the morning. hydrocortisone (CORTEF) Take 10 mg by mouth Active 10 MG tablet nightly 10 mg every night. levothyroxine (SYNTHROID, Take 75 mcg by mouth Active LEVOTHROID) 75 MCG tablet daily. citalopram (CELEXA) 40 MG Take 40 mg by mouth daily Active tablet . pantoprazole (PROTONIX) Take 40 mg by mouth Active 40 MG tablet daily. clonazePAM (KLONOPIN) 1 Take 1 mg by mouth 2 Active MG tablet (two) times daily as needed for Anxiety. HYDROcodone-acetaminophen Take 1 tablet by mouth Active (NORCO 5-325) 5-325 mg every 6 (six) hours as per tablet needed for Pain. zolpidem (AMBIEN) 10 mg Take 10 mg by mouth every Active tablet night as needed for Insomnia. amitriptyline (ELAVIL) 50 Take 50 mg by mouth Active MG tablet nightly. traMADol (ULTRAM) 50 mg Take 50 mg by mouth every Active tablet 6 (six) hours as needed for Pain. ondansetron (ZOFRAN) 4 MG Take 4 mg by mouth 2 Active tablet (two) times daily as needed for Nausea. hydrocortisone, PF, Inject 100 mg 1 each 0 12/27/19 Active (SOLU-CORTEF) 100 mg SolR intramuscularly as needed 17 (For addisson's crises) Prn for crisis . fludrocortisone Take 0.5 tablets (0.05 mg 30 tablet 0 12/27/19 Active (FLORINEF) 0.1 mg tablet total) by mouth daily. 17 fludrocortisone Take 0.1 mg by mouth 12/27/19 Discontin (FLORINEF) 0.1 mg tablet daily 1/2 pill twice 17 ued daily. HYDROCORTISONE SOD Inject 1 mL as directed 12/27/19 Discontin SUCCINATE (SOLU-CORTEF Prn for crisis . 17 ued INJ) promethazine (PHENERGAN) Take 25 mg by mouth every 12/27/19 Discontin 25 MG tablet 6 (six) hours as needed 17 ued for Nausea. ibuprofen (ADVIL,MOTRIN) Take 800 mg by mouth 12/27/19 Discontin 800 MG tablet every 8 (eight) hours as 17 ued needed for Pain. metroNIDAZOLE (FLAGYL) Take 500 mg by mouth 3 12/27/19 Discontin 500 MG tablet (three) times daily. 17 ued ibuprofen (ADVIL,MOTRIN) Take 1 tablet (600 mg 30 tablet 0 11/26/19 12/06/19 600 MG tablet total) by mouth every 6 17 (six) hours as needed for Pain for up to 10 days. promethazine (PHENERGAN) Take 1 tablet (25 mg 20 tablet 0 11/26/19 12/03/19 25 MG tablet total) by mouth every 6 17 17 (six) hours as needed (not relieved by zofran) for up to 7 days. ondansetron (ZOFRAN-ODT) Take 1 tablet (4 mg 30 tablet 0 11/26/19 4 MG disintegrating total) by mouth every 8 17 17 tablet (eight) hours as needed for Nausea for up to 10 days. traMADol (ULTRAM) 50 mg Take 1 tablet (50 mg 30 tablet 0 12/24/19 tablet total) by mouth every 6 17 17 (six) hours as needed for Pain for up to 10 days. Max Daily Amount: 200 mg ondansetron (ZOFRAN) 4 MG Take 1 tablet (4 mg 12 tablet 0 12/24/19 12/27/19 Discontin tablet total) by mouth every 6 17 17 ued (six) hours for 7 days. ondansetron (ZOFRAN) 4 MG Take 1 tablet (4 mg 20 tablet 0 12/27/19 12/27/19 Discontin tablet total) by mouth every 8 17 17 ued (eight) hours as needed for Nausea for up to 7 days. promethazine (PHENERGAN) Take 1 tablet (25 mg 30 tablet 0 12/27/19 03/18/20 Discontin 25 MG tablet total) by mouth every 6 17 17 ued (six) hours as needed for Nausea. acetaminophen-codeine Take 1 tablet by mouth 20 tablet 0 03/18/20 (TYLENOL #3) 300-30 mg every 4 (four) hours as 17 17 per tablet needed for up to 10 days. Max Daily Amount: 6 tablets promethazine (PHENERGAN) Take 1 tablet (25 mg 12 tablet 0 03/18/20 03/25/20 25 MG tablet total) by mouth every 6 17 17 (six) hours as needed for Nausea for up to 7 days. 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 [facility] Oncology Buck Almodovar, Lower abdominal pain - Encounter MD (Primary Dx);Intractable 12/26/2016 Primo Villalba MD vomiting with nausea, Jose Owen MD unspecified vomiting Angel Lucas MD type;Menorrhagia with Sabrina Hardy Beckie, irregular cycle;Treasure's MD disease ([facility]);Hypothyroidism, unspecified type;Hypercalcemia;Sinus tachycardia;Hematuria;Hyp erkalemia;Hyponatremia;Sl ow transit constipation;Adrenal insufficiency ([facility]) 12/23/2016 Orders Only General Internal Medicine 11/24/2016 Emergency Emergency Medicine Markides, Yoly Felipa, Abdominal pain, vomiting, - MD and diarrhea 11/25/2016 after 10/12/2016 Social History Tobacco Use Types Packs/Day Years Used Date Current Every Day Smoker Cigarettes 8 Quit: 11/23/2016 Smokeless Tobacco: Never Used Comments: 5 cigarretts per day x 8 years Alcohol Use Drinks/Week oz/Week Comments No Sex Assigned at Date Recorded Not on file Last Filed Vital Signs Vital Sign Reading Time Taken Blood Pressure 106/67 03/18/2017 6:15 PM CDT Pulse 70 03/18/2017 6:15 PM CDT Temperature 36.5 C (97.7 F) 03/18/2017 12:43 PM CDT Respiratory Rate 18 03/18/2017 6:15 PM CDT Oxygen Saturation 98% 03/18/2017 6:15 PM CDT Inhaled Oxygen - - Concentration Weight 68 kg (150 lb) 03/18/2017 12:43 PM CDT Height 157.5 cm (5' 2") 03/18/2017 12:43 PM CDT Body Mass Index 27.44 03/18/2017 12:43 PM CDT Plan of Treatment Not on file Results * CT abdomen/pelvis with IV contrast (03/18/2017 4:31 PM) Only the most recent of 2 results within the time period is included. Specimen Performing Laboratory [facility] FINAL REPORT ABDOMINAL AND PELVIS CT DATED 03/18/2017 COMPARISON: December 23, 2016 CLINICAL INFORMATION:Abdominal pain, unspecified abdominal pain TECHNIQUE:Axial images of the abdomen and pelvis were obtained from diaphragm to the pubic symphysis with intravenous contrast. This exam was performed according to our departmental dose-optimization program, which includes automated exposure control, adjustment of the mA and/or kV according to patient size and/or use of interactive reconstruction technique. COMMENT: Liver and spleen are normal in size. A 1.2 cm cyst is seen in the medial segment of the left hepatic lobe. Gallbladder is surgically absent. No biliary dilatation is noted. Pancreas and adrenals are unremarkable. Both kidneys are normal in size and functioning with prompt bilateral excretion. No hydronephrosis, solid or cystic mass is seen in either kidney. The small and large bowel are suboptimally evaluated secondary to lack of GI contrast. Large amount fecal material is seen in the large bowel suggestive of constipation. The small bowel and appendix are unremarkable. Uterus is normal in size. Small amount fluid is seen in the endometrial cavity. Both ovaries are not well seen. No mass, adenopathy or ascites is present. IMPRESSION: 1. Liver cyst. 2. Constipation. 3. Status post cholecystectomy without biliary dilatation. Signed: Abbie Kirby MD Report Verified Date/Time:03/18/2017 16:58:48 Reading Location: [facility] C0[facility] Ortho Consult Reading Room Procedure Note Interface, External Ris In - 03/18/2017 5:01 PM CDT FINAL REPORT ABDOMINAL AND PELVIS CT DATED 03/18/2017 COMPARISON: December 23, 2016 CLINICAL INFORMATION: Abdominal pain, unspecified abdominal pain TECHNIQUE: Axial images of the abdomen and pelvis were obtained from diaphragm to the pubic symphysis with intravenous contrast. This exam was performed according to our departmental dose-optimization program, which includes automated exposure control, adjustment of the mA and/or kV according to patient size and/or use of interactive reconstruction technique. COMMENT: Liver and spleen are normal in size. A 1.2 cm cyst is seen in the medial segment of the left hepatic lobe. Gallbladder is surgically absent. No biliary dilatation is noted. Pancreas and adrenals are unremarkable. Both kidneys are normal in size and functioning with prompt bilateral excretion. No hydronephrosis, solid or cystic mass is seen in either kidney. The small and large bowel are suboptimally evaluated secondary to lack of GI contrast. Large amount fecal material is seen in the large bowel suggestive of constipation. The small bowel and appendix are unremarkable. Uterus is normal in size. Small amount fluid is seen in the endometrial cavity. Both ovaries are not well seen. No mass, adenopathy or ascites is present. IMPRESSION: 1. Liver cyst. 2. Constipation. 3. Status post cholecystectomy without biliary dilatation. Signed: Abbie Kirby MD Report Verified Date/Time: 03/18/2017 16:58:48 Reading Location: [facility] C0[facility] Ortho Consult Reading Room * Manual Differential (03/18/2017 1:16 PM) Only the most recent of 2 results within the time period is included. Component Value Ref Range Total Counted WBC Morphology Normal Platelet Morphology Normal RBC Morphology Normal Specimen Performing Laboratory Blood - Arm, Right [facility] [address] [place] [address] * Urinalysis w/Microscopic + Reflex to Culture - Clear Catch (03/18/2017 1:16 PM) Component Value Ref Range Color, UA Yellow Clarity, UA Hazy Specific [place], UA 1.016 1.001 - 1.035 pH, UA 5.5 5.0 - 8.0 Protein, UA Negative Negative Glucose, UA Negative Negative Ketones, UA Negative Negative Bilirubin, UA Negative Negative Blood, UA Negative Negative Nitrite, UA Negative Negative Leukocytes, UA Large (A) Negative Urobilinogen, UA 0.2 0.2 - 1.0 mg/dL RBC, UA 0 /HPF WBC, UA 1 /HPF Bacteria, UA Rare Mucus Rare Squam Epithel, UA 4 /HPF Hyaline Casts, UA 2 /LPF Specimen Source Specimen Performing Laboratory Urine - Urine, Clean [facility] Catch [address] [place] [address] * CBC with platelet count + automated diff (03/18/2017 1:16 PM) Only the most recent of 2 results within the time period is included. Component Value Ref Range WBC 6.5 3.5 - 10.5 K/ L RBC 4.27 3.93 - 5.22 M/ L Hemoglobin 12.6 11.2 - 15.7 GM/DL Hematocrit 39.2 34.1 - 44.9 % MCV 91.8 79.4 - 94.8 fL MCH 29.5 25.6 - 32.2 pg MCHC 32.1 (L) 32.2 - 35.5 GM/DL RDW 14.4 11.7 - 14.4 % Platelets 331 150 - 450 K/CU MM MPV 10.5 9.4 - 12.3 fL nRBC 0 0 - 0 /100 WBC % Neutros 36 % % Lymphs 53 % % Monos 6 % % Eos 4 % % Baso 1 % # Neutros 2.32 1.56 - 6.13 K/ L # Lymphs 3.40 1.18 - 3.74 K/ L # Monos 0.41 (H) 0.24 - 0.36 K/ L # Eos 0.28 0.04 - 0.36 K/ L # Baso 0.03 0.01 - 0.08 K/ L Immature 0 0 - 1 % Granulocytes-Relative Specimen Performing Laboratory Blood - Arm, [address] [address] * Screen, urine (03/18/2017 1:16 PM) Component Value Ref Range Preg Test, Ur Negative Specimen Performing Laboratory Urine - Urine, Voided [address] [address] * CBC with platelet count + automated diff (03/18/2017 1:16 PM) Only the most recent of 2 results within the time period is included. Specimen Performing Laboratory Blood Narrative The following orders were created for panel order CBC with platelet count + automated diff. Procedure Abnormality Status --------- - ------ CBC with platelet count ...[[id number]]AbnormalFinal result Manual Differential[[id number]] Final result Please view results for these tests on the individual orders. * Urine culture (03/18/2017 1:16 PM) Component Value Ref Range Result >100,000 col/mL skin kenia Specimen Performing Laboratory Urine - Urine, Clean [facility] Catch [address] [place] [address] * Lipase (03/18/2017 1:16 PM) Component Value Ref Range Lipase 28 8 - 78 U/L Specimen Performing Laboratory Blood - Arm, [address] [address] * Amylase (03/18/2017 1:16 PM) Only the most recent of 2 results within the time period is included. Component Value Ref Range Amylase 63 25 - 125 U/L Specimen Performing Laboratory Blood - Arm, [address] [address] * Liver Panel (03/18/2017 1:16 PM) Only the most recent of 2 results within the time period is included. Component Value Ref Range Protein, Total 7.3 6.0 - 8.3 gm/dL Albumin 3.9 3.5 - 5.0 g/dL Total Bilirubin 0.5 0.2 - 1.2 mg/dL Bilirubin, Direct 0.2 0.1 - 0.5 mg/dL Alkaline Phosphatase 64 40 - 150 U/L AST 18 5 - 34 U/L ALT 11 6 - 55 U/L Specimen Performing Laboratory Blood - Arm, [place] [address] * Basic metabolic panel (Na, K+, Cl, CO2, Glu, Ca, BUN, Cr) (03/18/2017 12:54 PM ) Only the most recent of 5 results within the time period is included. Component Value Ref Range Sodium 135 (L) 136 - 145 meq/L Potassium 4.3 3.5 - 5.1 meq/L Chloride 109 (H) 98 - 107 meq/L CO2 19 (L) 22 - 29 meq/L BUN 10 7 - 21 mg/dL Creatinine 0.84 0.57 - 1.25 mg/dL Glucose 75 70 - 105 mg/dL Calcium 10.4 (H) 8.4 - 10.2 mg/dL EGFR 78Comment: ESTIMATED GFR IS NOT ACCURATE mL/min/1.73 sq m CREATININE CLEARANCE IN PREDICTING GLOMERULAR FILTRATION RATE. ESTIMATED GFR IS NOT APPLICABLE FOR DIALYSIS PATIENTS. Specimen Performing Laboratory Blood - Arm, [place] [address] * RHYTHM STRIP - SCAN (12/28/2016 11:50 AM) * POC-Glucose meter (12/26/2016 12:11 PM) Only the most recent of 9 results within the time period is included. Component Value Ref Range POC-Glucose Meter 153 (H)Comment: TESTED AT [address] 70 - 110 mg /dL [place] [address] Specimen Performing [place] [address] * PERMANENT LAB REPORT - SCAN (12/26/2016 11:41 AM) Only the most recent of 2 results within the time period is included. * 2D Echo W/Doppler(CW/PW/Color) (12/26/2016 8:37 AM) Specimen Performing Laboratory [facility] Narrative Echocardiography Laboratory [address] [place] [address] Voice:[phone] Transthoracic Echocardiogram Pat.Name:LIV FOURNIER.ID:[id number] St.Date: 12/26/2016 Refer.MD:SABRINA HARDY Exam Time: 8:37:00 AMStudy Type:Echo Complete Height:63inWeight:160lb BSA: 1.76 m2 DOBAge:1984,31Y Sex: FEMALEBP:90 /50 HR:73 bpmSonogrphr: Blake Arceo [facility] Pat. Stat.:Inpatient Room:2038 Reason for Study:Acute Chest Pain / Suspected CAD History / Clinical:DVT, Thyroid disease, Treasure's Disease Procedures:2D ECHO W/ DOPPLER (CW/PW/COLOR) SUMMARY: Normal LV chamber size. Normal wall thickness. Normal overall LV systolic function. No apparent segmental wall motion abnormalities. LVEF by quantitative assessment is normal (60%). Normal diastolic function The right ventricular chamber size and systolic function are within normal limits. Unable to estimate peak systolic PA pressure; inadequate TR velocity signal. No pericardial effusion is visualized. FINDINGS: LV: Normal LV chamber size. Normal wall thickness. Normal overallLV systolic function. No apparent segmental wall motionabnormalities. Overall LV systolic function normal byavailable views. LVEF by quantitative assessment is normal(60%). Normal diastolic function LA: LA size is normal. RV: The right ventricular chamber size and systolic function are withinnormal limits. RA: RA cavity size is normal. AV: Normal AoV structure by available views. MV: Normal MV structure by available views. TV: A trace of tricuspid regurgitation. Unable to estimate peak systolicPA pressure; inadequate TR velocity signal. PV: Normal PV structure appears normal by available views. AO: Aortic root size (Sinus of Valsalva diameter) is normal. Pericard: No pericardial effusion is visualized. Systemic Veins: The estimated RA pressure by IVC dynamics 5-10 mmHg. Comparison: No prior exam available for comparison. MEASUREMENTS: 2D LVOT Stroke Vol & Cardiac Out LVOT2.15 cm Parasternal Long [place] Ao An 2.14 cm (1.4-2.6) LV%fs 30.8 %(25-46) Ao Rtd3.16 cmLVPWd 1.02 cm IVSd 0.806 cm LA Ds 2.98 cm (2.3-3.8) LVIDd4.3 cm (4.3-5.1)* LV Wmn 0.914 cm LVIDs 2.97 cm (2-4) DOPPLER LVOT Stroke Vol & Cardiac Out LVOT VTI12.9 cmLVOT CO 3.33 l/min LVOT SV 46.9 mlLVOT CI 1.89 l/min/m2 Aortic Valve SVi (LVOT)26.6 Signed 12/26/2016 05:27 PM Markell Perdomo M.D. Procedure Note Interface, External Ris In - 12/26/2016 5:27 PM CDT Echocardiography Laboratory [address] [place] [address] Voice: [phone] Transthoracic Echocardiogram Pat.Name: LIV FOURNIER Pat.ID: [id number] St.Date: 12/26/2016 Refer.MD: SABRINA HARDY Exam Time: 8:37:00 AM Study Type:Echo Complete Height: 63in Weight: 160lb BSA: 1.76 m2 Age: 6 1985,31Y Sex: FEMALE BP: 90/50 HR: 73 bpm Sonogrphr: Blake Arceo [facility] Pat. Stat.:Inpatient Room: 2038 Reason for Study:Acute Chest Pain / Suspected CAD History / Clinical:DVT, Thyroid disease, Rigo's Disease Procedures:2D ECHO W/ DOPPLER (CW/PW/COLOR) SUMMARY: Normal LV chamber size. Normal wall thickness. Normal overall LV systolic function. No apparent segmental wall motion abnormalities. LVEF by quantitative assessment is normal (60%). Normal diastolic function The right ventricular chamber size and systolic function are within normal limits. Unable to estimate peak systolic PA pressure; inadequate TR velocity signal. No pericardial effusion is visualized. FINDINGS: LV: Normal LV chamber size. Normal wall thickness. Normal overall LV systolic function. No apparent segmental wall motion abnormalities. Overall LV systolic function normal by available views. LVEF by quantitative assessment is normal (60%). Normal diastolic function LA: LA size is normal. RV: The right ventricular chamber size and systolic function are within normal limits. RA: RA cavity size is normal. AV: Normal AoV structure by available views. MV: Normal MV structure by available views. TV: A trace of tricuspid regurgitation. Unable to estimate peak systolic PA pressure; inadequate TR velocity signal. PV: Normal PV structure appears normal by available views. AO: Aortic root size (Sinus of Valsalva diameter) is normal. Pericard: No pericardial effusion is visualized. Systemic Veins: The estimated RA pressure by IVC dynamics 5-10 mmHg. Comparison: No prior exam available for comparison. MEASUREMENTS: 2D LVOT Stroke Vol & Cardiac Out LVOT 2.15 cm Parasternal Long [place] Ao An 2.14 cm (1.4-2.6) LV%fs 30.8 % (25-46) Ao Rtd 3.16 cm LVPWd 1.02 cm IVSd 0.806 cm LA Ds 2.98 cm (2.3-3.8) LVIDd 4.3 cm (4.3-5.1)* LV Wmn 0.914 cm LVIDs 2.97 cm (2-4) DOPPLER LVOT Stroke Vol & Cardiac Out LVOT VTI 12.9 cm LVOT CO 3.33 l/min LVOT SV 46.9 ml LVOT CI 1.89 l/min/m2 Aortic Valve SVi (LVOT) 26.6 Signed 12/26/2016 05:27 PM Markell Perdomo M.D. * CBC (Hemogram only) (12/26/2016 3:10 AM) Only the most recent of 3 results within the time period is included. Component Value Ref Range WBC 5.9 4.0 - 10.0 K/ L RBC 3.73 (L) 4.00 - 5.00 M/ L Hemoglobin 11.2 (L) 12.0 - 15.0 GM/DL Hematocrit 34.4 (L) 36.0 - 45.0 % MCV 92.3 82.0 - 99.0 fL MCH 30.0 27.0 - 33.0 pg MCHC 32.5 32.0 - 36.0 GM/DL RDW 14.1 10.3 - 14.2 % Platelets 256 150 - 430 K/CU MM MPV 8.1 6.5 - 10.5 fL Specimen Performing [place] [address] * ECG 12 lead (12/24/2016 9:29 PM) Only the most recent of 2 results within the time period is included. Specimen Performing Laboratory [employer] Narrative Ventricular Rate 96 BPM Atrial Rate 96 BPM P-R Interval 202 ms QRS Duration 98 ms Q-T Interval 380 ms QTC Calculation(Bazett) 480 ms P [place] 35 degrees R [place] 45 degrees T [place] 57 degrees Normal sinus rhythm Nonspecific T wave abnormality Abnormal ECG When compared with ECG of 08-JAN-2016 20:41, Nonspecific T wave abnormality now evident in Inferior leads Nonspecific T wave abnormality, worse in Anterolateral leads Confirmed by MD BRYON, BRANDON ([id number]) on 12/25/2016 10:45:04 PM Procedure Note Interface, External Ris In - 12/26/2016 4:42 AM CDT Ventricular Rate 96 BPM Atrial Rate 96 BPM P-R Interval 202 ms QRS Duration 98 ms Q-T Interval 380 ms QTC Calculation(Bazett) 480 ms P [place] 35 degrees R [place] 45 degrees T [place] 57 degrees Normal sinus rhythm Nonspecific T wave abnormality Abnormal ECG When compared with ECG of 08-JAN-2016 20:41, Nonspecific T wave abnormality now evident in Inferior leads Nonspecific T wave abnormality, worse in Anterolateral leads Confirmed by MD BRYON, BRANDON ([id number]) on 12/25/2016 10:45:04 PM * Urinalysis w/ Microscopic (12/24/2016 10:13 AM) Component Value Ref Range Color, UA Colorless Clarity, UA Clear Specific [place], UA 1.006 1.001 - 1.035 pH, UA 5.0 5.0 - 8.0 Protein, UA Negative Negative Glucose, UA Negative Negative Ketones, UA Negative Negative Bilirubin, UA Negative Negative Blood, UA Moderate (A) Negative Nitrite, UA Negative Negative Leukocytes, UA Negative Negative Urobilinogen, UA 0.2 0.2 - 1.0 mg/dL RBC, UA 1 /HPF WBC, UA 1 /HPF Squam Epithel, UA 1 /HPF Specimen Source Urine, Clean Catch Specimen Performing Laboratory Urine - Urine, Clean [facility] Catch [address] [place] [address] * Blood culture #1 (12/24/2016 8:01 AM) Only the most recent of 3 results within the time period is included. Component Value Ref Range Result No growth in 5 days Specimen Performing Laboratory Blood - Arm, Right [address] [address] * Troponin I (12/24/2016 7:43 AM) Component Value Ref Range Troponin I <0.01 0.00 - 0.03 ng/mL Specimen Performing Laboratory Blood - Arm, Left [address] [address] Narrative Effective 06/03/2014: Reference Range Change New: 0.00-0.03 Previous 0.00-0.15 Troponin I (TnI) levels must be interpreted in [...] failure, acidosis, acute neurological disease, and persistent tachyarrhythmia. * Creatine Kinase (CK), Total and MB (12/24/2016 7:43 AM) Component Value Ref Range Total CK 33 29 - 200 U/L CK-MB 0.3 0.0 - 6.6 ng/mL MB Relative Index 0.9 % Specimen Performing Laboratory Blood - Arm, Left [facility] [address] [place] [address] Narrative Effective 06/03/2014: CK-MB Reference Range Change New: 0.0-6.6Previous: 0.0-4.9 CK-MB Reference Range: <6.7Normal 6.7-10.0Borderline >10.0 Abnormal * POCT , urine (12/23/2016 8:04 PM) Only the most recent of 2 results within the time period is included. Component Value Ref Range Test Urine, POC Negative Control line present?, Yes POC Background clear?, POC Yes UPT Cassette Lot #, POC [id number] UPT Cassette Expiration 09/13/2017 Date, POC Specimen Performing Laboratory Urine [facility] [address] [place] [address] * POCT urinalysis dipstick (12/23/2016 8:02 PM) Only the most recent of 2 results within the time period is included. Component Value Ref Range Glucose Urine, POC Negative Negative Bilirubin Urine, POC Negative Negative Ketones Urine, POC Negative Negative Specific [place] Urine, 1.010 SG Ratio 1.005 SG Ratio, 1.010 SG POC Ratio, 1.015 SG Ratio, 1.020 SG Ratio, 1.025 SG Ratio, 1.030 SG Ratio Blood Urine, POC Negative Negative pH Urine, POC 6.0 pH unitsComment: 5.5 5.0 pH units, 6.0 pH units, 6.5 pH units, 7.0 pH units, 7.5 pH units, 8.0 pH units Protein Urine, POC Negative Negative Urobilinogen Urine, POC 0.2 mg/dL 0.2 mg/dL, 1 mg/dL Nitrite Urine, POC Negative Negative Leukocyte Esterase Urine, Negative Negative POC Specimen Performing Laboratory Urine (Catheterized) [facility], [facility] [address] [place] [address] * ED ECG Interpretation (12/23/2016 5:16 PM) Narrative Buck Almodovar MD 12/23/20165:16 PM ECG/EKG Interpretation Date/Time: 12/23/2016 5:16 PM Performed by: BUCK ALMODOVAR Authorized by: BUCK ALMODOVAR The ECG was interpreted by ED physician. This ECG was not compared with previous ECG(s).The ECG is interpreted as sinus rhythm. Rate is normal rate. Heart rate is 92 BPM. Conduction: conduction normal. ST segments normal. T waves normal. [place] is normal. Other findings: no other findings. Clinical Impression: normal ECGECG reviewed and does not meet STEMI criteria. Patient tolerance: Patient tolerated the procedure well with no immediate complications * TSH/Free T4 If Indicated (12/23/2016 4:35 PM) Component Value Ref Range TSH 6.96 (H) 0.35 - 4.94 uIU/mL Specimen Performing Laboratory Blood [address] [address] * Calcium, Ionized (12/23/2016 4:35 PM) Component Value Ref Range Calcium, Ion 1.23 1.12 - 1.27 mmol/L pH, Blood 7.37 Specimen Performing Laboratory Blood [address] [address] * T4, free (12/23/2016 4:35 PM) Component Value Ref Range Free T4 1.02 0.70 - 1.48 ng/dL Specimen Performing Laboratory Blood [address] [address] * Type and screen, automated ([facility] and [facility] only) (12/23/2016 3:41 PM) Component Value Ref Range Ab Scrn NEGATIVE Specimen Performing Laboratory Blood [address] [address] * ABORH, manual (12/23/2016 3:41 PM) Component Value Ref Range ABO Grouping O Rh Factor POS Specimen Performing Laboratory Blood [address] [address] * CT abdomen pelvis without contrast (11/24/2016 11:27 PM) Specimen Performing Laboratory GE RIS Narrative FINAL REPORT INDICATION: 31-year-old female with left flank and left lower quadrant pain. COMPARISON: October 27, 2014 TECHNIQUE: CT of the Abdomen and Pelvis WITHOUT intravenous contrast. The exam was performed according to our department dose-optimization protocol, which includes automated exposure control, adjustments of mA and kV according to patient size. Iterative reconstructions are also sometimes employed. FINDINGS: LOWER THORAX: Unremarkable. HEPATOBILIARY AND PANCREAS: Liver is normal in size, contour, and attenuation. There is a 1.5 cm cyst in the left hepatic lobe. No suspicious liver lesion is demonstrated. Patient is status post cholecystectomy. There is no biliary ductal dilatation. No pancreatic mass, ductal dilatation, atrophy, or peripancreatic inflammation. SPLEEN: No splenomegaly. UPPER ABDOMINAL LYMPH NODES:No lymphadenopathy. ADRENALS: No adrenal nodules. KIDNEYS / URETERS: Kidneys are normal in size and location. There is no hydronephrosis or hydroureter. No gross renal mass is present. BLADDER: Unremarkable. PELVIC ORGANS: Uterus and ovaries are unremarkable. There is no pelvic free fluid or pelvic lymphadenopathy. RETROPERITONEUM: No lymphadenopathy or retroperitoneal mass. VESSELS: Unremarkable. PERITONEUM / OMENTUM / MESENTERY: No peritoneal free fluid or air. Omentum and mesentery are unremarkable. GI TRACT: No evidence of bowel obstruction or infection. Appendix is normal in caliber and there is no periappendiceal stranding. Mild diverticulosis of the left colon is noted without diverticulitis. Mild increase in stool burden in the right, transverse, and proximal left colon is noted. BONES: Unremarkable. SOFT TISSUES: Rectus diastases is noted. IMPRESSION: No urolithiasis. Colonic diverticulosis without diverticulitis. Mild constipation. Signed: Patel Engle MD Report Verified Date/Time:11/24/2016 23:49:06 Reading Location: [address] Consult Reading Room Procedure Note Interface, External Ris In - 11/24/2016 11:51 PM CDT FINAL REPORT INDICATION: 31-year-old female with left flank and left lower quadrant pain. COMPARISON: October 27, 2014 TECHNIQUE: CT of the Abdomen and Pelvis WITHOUT intravenous contrast. The exam was performed according to our department dose-optimization protocol, which includes automated exposure control, adjustments of mA and kV according to patient size. Iterative reconstructions are also sometimes employed. FINDINGS: LOWER THORAX: Unremarkable. HEPATOBILIARY AND PANCREAS: Liver is normal in size, contour, and attenuation. There is a 1.5 cm cyst in the left hepatic lobe. No suspicious liver lesion is demonstrated. Patient is status post cholecystectomy. There is no biliary ductal dilatation. No pancreatic mass, ductal dilatation, atrophy, or peripancreatic inflammation. SPLEEN: No splenomegaly. UPPER ABDOMINAL LYMPH NODES:No lymphadenopathy. ADRENALS: No adrenal nodules. KIDNEYS / URETERS: Kidneys are normal in size and location. There is no hydronephrosis or hydroureter. No gross renal mass is present. BLADDER: Unremarkable. PELVIC ORGANS: Uterus and ovaries are unremarkable. There is no pelvic free fluid or pelvic lymphadenopathy. RETROPERITONEUM: No lymphadenopathy or retroperitoneal mass. VESSELS: Unremarkable. PERITONEUM / OMENTUM / MESENTERY: No peritoneal free fluid or air. Omentum and mesentery are unremarkable. GI TRACT: No evidence of bowel obstruction or infection. Appendix is normal in caliber and there is no periappendiceal stranding. Mild diverticulosis of the left colon is noted without diverticulitis. Mild increase in stool burden in the right, transverse, and proximal left colon is noted. BONES: Unremarkable. SOFT TISSUES: Rectus diastases is noted. IMPRESSION: No urolithiasis. Colonic diverticulosis without diverticulitis. Mild constipation. Signed: Patel Engle MD Report Verified Date/Time: 11/24/2016 23:49:06 Reading Location: [facility] [id number] Consult Reading Room after 10/12/2016
[2017-10-13] MEDS ORDERED: ONDANSETRON HCL INJ 2 MG/ML VIAL IV SCH (18:29)
[2017-10-13] MEDS ORDERED: SODIUM CHLORIDE 0.9% 1000ML 1,000 ML IV STA (18:29)
[2017-10-13] MEDS ORDERED: MORPHINE SULFATE 2 MG/ML SYR IV STA (18:46)
[2017-10-13] MEDS ORDERED: HYDROCORTISONE SOD SUCCINATE 100 MG VIAL IV SCH (19:00)
[2017-10-13 19:38] LABS: BASOPHILS % 0.4 % (0.0-1.0); EOSINOPHILS # (AUTO) 0.1 (0.0-0.4); EOSINOPHILS % 0.6 % (0.0-6.0); HEMATOCRIT 42.7 % (34.2-44.1); HEMOGLOBIN 14.2 g/dL (12.0-16.0); LYMPHOCYTES # (AUTO) 2.1 (1.0-3.2); LYMPHOCYTES % 26.8 % (18.0-39.1); MEAN CORPUSCULAR HEMOGLOBIN 28.9 pg (28-32); MEAN CORPUSCULAR HGB CONC 33.3 g/dL (31-35); MEAN CORPUSCULAR VOLUME 86.8 fL (81-99); MONOCYTES # (AUTO) 0.3 (0.2-0.8); MONOCYTES % 4.2 % (4.4-11.3); NEUTROPHILS # (AUTO) 5.3 (2.1-6.9); NEUTROPHILS % 67.7 % (38.7-80.0); PLATELET COUNT 320 x10e3/uL (140-360); RED BLOOD COUNT 4.92 x10e6/uL (3.6-5.1); RED CELL DISTRIBUTION WIDTH 14.8 % (11.7-14.4)
[2017-10-13 19:58] LABS: ALANINE AMINOTRANSFERASE 15 IU/L (0-55); ALBUMIN 4.3 g/dL (3.5-5.0); ALBUMIN/GLOBULIN RATIO 1.2 (0.8-2.0); ALKALINE PHOSPHATASE 55 IU/L (40-150); ANION GAP 14.4 mmol/L (8-16); BLOOD UREA NITROGEN 12 mg/dL (7-26); BUN/CREATININE RATIO 13 (6-25); CALCIUM 11.1 mg/dL (8.4-10.2); CARBON DIOXIDE 19 mmol/L (22-29); CHLORIDE 105 mmol/L (98-107); CREATININE, SERUM 0.94 mg/dL (0.57-1.11); EST GLOMERULAR FILTRATION RATE > 60 ML/MIN (60-); GLUCOSE 96 mg/dL (74-118); LIPASE 38 U/L (8-78); POTASSIUM 4.4 mmol/L (3.5-5.1); SODIUM 134 mmol/L (136-145)
[2017-10-13] MEDS ORDERED: MORPHINE SULFATE 2 MG/ML SYR IV SCH (20:13)
[2017-10-13] MEDS ORDERED: SODIUM CHLORIDE 0.9% 1000ML 1,000 ML IV ONE (20:15)
[2017-10-13 20:18] LABS: CLARITY,URINE CLEAR (CLEAR); COLOR,URINE YELLOW (YELLOW)
[2017-10-13 20:19] LABS: KETONES,URINE NEGATIVE (NEGATIVE); LEUKOCYTE ESTERASE ,URINE NEGATIVE (NEGATIVE); NITRITE,URINE NEGATIVE (NEGATIVE); PROTEIN,URINE DIPSTICK NEGATIVE (NEGATIVE)
[2017-10-13 20:20] LABS: BILIRUBIN,URINE NEGATIVE (NEGATIVE); URINE UROBILINOGEN 0.2 mg/dL (0.2 - 1)
[2017-10-13 20:22] LABS: PREGNANCY TEST, URINE NEGATIVE (NEGATIVE)
[2017-10-13] MEDS: ONDANSETRON HCL INJ 2 MG/ML VIAL IV PRN (21:14)
[2017-10-13] MEDS: SODIUM CHLORIDE 0.9% 1000ML 1,000 ML IV SCH (22:28)
[2017-10-13] MEDS ORDERED: PROMETHAZINE 12.5MG/ NACL 0.9% 12.5 MG/50 ML BAG IV ONE (22:30)
--- OUTSIDE RECORDS SUMMARY | 2017-10-13 23:29 | XMS REPORT | Clinical Summary ---
Author Author [facility] Address Unknown Phone Unavailable Care Team Providers Care Bench Assembler Battery Name Role Phone Robert Stokes MD PCP [...] tablet daily. PT throw up today 08/13/2017 [id number] Take 1 tablet by mouth Active n-dss [...] Date Type Specialty Care Team Description 09/13/2017 [facility] General Surgery Narendra Perez MD Addisonian crisis - Encounter Ricardo Garcia DO (Primary Dx); 09/15/2017 Stanley Murrieta MD Intractable vomiting with Mikey Eller MD nausea, unspecified vomiting type; Left flank pain; Dehydration 08/02/2017 [facility] Internal Medicine Jewel Chamberlain MD Addisonian crisis [...] Taken Blood Pressure 114/69 09/15/2017 7:34 AM REHABILITATION CONSULTANT Pulse 109 09/15/2017 7:34 AM REHABILITATION CONSULTANT Temperature 36.7 C (98 F) 09/15/2017 7:34 AM REHABILITATION CONSULTANT Respiratory Rate 16 09/15/2017 7:34 AM REHABILITATION CONSULTANT Oxygen Saturation 99% 09/15/2017 7:34 AM REHABILITATION CONSULTANT Inhaled Oxygen - - Concentration Weight 65.8 kg (145 lb) 09/13/2017 12:42 PM REHABILITATION CONSULTANT Height 157.5 cm (5' 2") 09/13/2017 12:42 PM REHABILITATION CONSULTANT Body Mass Index 26.52 09/13/2017 12:42 PM REHABILITATION CONSULTANT Plan of Treatment Health Maintenance Due Date Last Done Comments PAP SMEAR 01/02/2004 INFLUENZA VACCINE 02/14/2017 Procedures Procedure Name Priority Date/Time Associated Diagnosis Comments MUSCULOSKELETAL Routine 07/16/2017 Results for this ULTRASOUND 10:36 AM REHABILITATION CONSULTANT procedure are in the results section. after [...] None seen UA Specimen Performing Laboratory Urine [facility] DEPARTMENT OF PATHOLOGY AND GENOMIC MEDICINE [address] [place] [address] [place] [address] * hCG qualitative, urine screen (09/15/2017 12:30 AM) Only the most recent of 2 results within the time period is included. Component Value Ref Range hCG qualitative, urine Negative Negative Comment: The manufacturers stated sensitivity of HcG test for serum is >/=10 mIU/ml and urine is >/=20mIU/ml. Specimen Performing Laboratory Urine [facility] DEPARTMENT OF PATHOLOGY AND GENOMIC MEDICINE [address] [place] [address] [place] [address] * Estimated GFR (09/14/2017 6:23 AM) Only [...] and Americans. Specimen Performing Laboratory Plasma specimen [facility] DEPARTMENT OF PATHOLOGY AND GENOMIC MEDICINE [address] [place] [address] [place] [address] * CBC with platelet and differential (09/14/2017 [...] (promyelocytes, myelocytes, metamyelocytes) Specimen Performing Laboratory Blood [facility] AND [facility] [address] [place] [address] * Basic metabolic panel (09/14/2017 6:23 AM) [...] 10.2 mg/dL Specimen Performing Laboratory Plasma specimen [facility] AND [facility] [address] [place] [address] * Troponin (09/13/2017 5:26 PM) Only the [...] myocardial injury. Specimen Performing Laboratory Plasma specimen [facility] DEPARTMENT OF PATHOLOGY AND GENOMIC MEDICINE [address] [place] [address] * ECG 12 lead (09/13/2017 3:28 PM) Only the most recent of 3 results within the time period is included. Component Value Ref Range Ventricular rate 95 Atrial rate 95 LA interval 156 QRSD interval 88 QT interval 356 QTC interval 447 P axis 1 49 QRS axis 1 70 T wave axis 38 EKG impression Normal sinus rhythm-Normal ECG-In automated comparison with ECG of 02-AUG-2017 09:52,-No significant change was found- Specimen Performing Laboratory [facility] [address] [place] [address] * CT Abdomen Pelvis W Wo Contrast (09/13/2017 3:07 PM) Specimen Performing Laboratory [facility] [address] [place] [address] Narrative EXAMINATION:CT ABDOMEN PELVIS W WO CONTRAST CLINICAL HISTORY:L flank painpossible Gage's crisis vs renal stone vs perinephric absces [...] visualized not 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 No definitive calcifications in the area of the adrenal glands are visualized. 4. Post cholecystectomy. 5. Small cyst within the liver adjacent to the falciform ligament [id number] Procedure Note Hm Interface, Radiology Results Incoming - 09/13/2017 3:37 PM REHABILITATION CONSULTANT EXAMINATION: CT ABDOMEN PELVIS W WO CONTRAST [...] the liver adjacent to the falciform ligament [id number] * Partial thromboplastin time, activated (09/13/2017 1:50 PM) Only the most recent of 2 results within the time period is included. Component Value Ref Range PTT 29.9 23.0 - 36.0 sec Comment: PTT therapeutic range for unfractionated heparin is 61.0-112.0 seconds which corresponds to Anti-Xa 0.3-0.7 U/ml. Specimen Performing Laboratory Blood [facility] [address] [place] [address] * Prothrombin time with INR (09/13/2017 1:50 [...] vein thrombosis/pulmonary embolism. Specimen Performing Laboratory Blood [facility] AND [address] [place] [address] * hCG qualitative, serum screen (09/13/2017 1:50 PM) Component Value Ref Range hCG qualitative, serum Negative Specimen Performing Laboratory Blood [facility] [address] [place] [address] * Magnesium level (09/13/2017 1:50 PM) Only the most recent of 2 results within the time period is included. Component Value Ref Range Magnesium 2.2 1.6 - 2.6 mg/dL Specimen Performing Laboratory Plasma specimen [facility] AND [address] [place] [address] * Lipase level (09/13/2017 1:50 PM) Only the most recent of 3 results within the time period is included. Component Value Ref Range Lipase 41 13 - 60 U/L Specimen Performing Laboratory Plasma specimen [facility] [address] [place] [address] * Hepatic function panel (09/13/2017 1:50 PM) Component Value Ref Range Albumin 4.5 3.5 - 5.0 g/dL Total bilirubin 0.5 0.0 - 1.2 mg/dL Bilirubin direct 0.1 0.0 - 0.3 mg/dL Alkaline phosphatase 51 35 - 104 U/L Protein 7.8 6.3 - 8.3 g/dL Comment: [place] 4.6-7.0 g/dL 1 week 4.4-7.6 g/dL 7 months-1year 5.1-7.3 g/dL 1-2 years 5.6-7.5 g/dL >3 years 6.0-8.0 g/dL 18-150 6.3-8.3 g/dL ALT 18 5 - 50 U/L AST 24 10 - 35 U/L Specimen Performing Laboratory Plasma specimen [facility] DEPARTMENT OF PATHOLOGY AND GENOMIC MEDICINE [address] [place] [address] * ECG ED Preliminary Interpretation - NOT AN ORDER (09/13/2017 1:05 PM) Only the most recent of 3 results within the time period is included. Dora Perez MD 09/13/20176:34 PM ECG ED Preliminary Interpretation - Not an Order Performed by: NARENDRA PEREZ Authorized by: NARENDRA PEREZ ECG reviewed by ED Physician in the absence of a maintenance man: yes Previous ECG: Previous ECG:Compared to current [...] 11 ug/dl Specimen Performing Laboratory Plasma specimen [facility] DEPARTMENT OF PATHOLOGY AND GENOMIC MEDICINE [address] [place] [address] * Comprehensive metabolic panel (08/03/2017 5:15 AM) [...] 5.5 (L) 6.3 - 8.3 g/dL Comment: [place] 4.6-7.0 g/dL 1 week 4.4-7.6 g/dL 7 [...] 1.2 mg/dL Specimen Performing Laboratory Plasma specimen [facility] OF PATHOLOGY AND [facility] [id number] [place] [address] [place] [address] * hCG quantitative, serum (08/02/2017 1:52 PM) Component Value Ref Range hCG quantitative, serum 1 0 - 5 mIU/mL Comment: Reference range for HCG Quant applies to males and non- females. Post Menopausal 0.0 - 8.1 mIU/mL Specimen Performing Laboratory Plasma specimen [facility] DEPARTMENT OF PATHOLOGY AND [facility] MEDICINE [address] [place] [address] * CT Abdomen Pelvis W Contrast (08/02/2017 1:02 PM) Specimen Performing Laboratory [facility] [address] [place] [id number] Narrative EXAMINATION:CT ABDOMEN PELVIS W CONTRAST CLINICAL [...] No acute abnormality. IMPRESSION: No acute abnormality. [facility]-[id number] Procedure Note [facility], Radiology Results - 08/02/2017 1:23 PM REHABILITATION CONSULTANT EXAMINATION: CT ABDOMEN PELVIS W CONTRAST CLINICAL [...] No acute abnormality. IMPRESSION: No acute abnormality. [facility]-[id number] * Adrenocorticotropic hormone (08/02/2017 11:35 AM) Component Value Ref Range Adrenocorticotropic 99.1 (H) 7.2 - 63.3 pg/mL hormone Specimen Performing Laboratory Blood [facility] DEPARTMENT OF PATHOLOGY AND GENOMIC MEDICINE [address] [place] [address] * Influenza antigen (08/02/2017 9:45 AM) Component Value Ref Range Influenza antigen Negative for Influenza A/B antigen. Comment: Specimen Information Specimen Source: Nares Specimen Site: Not specified Specimen Performing Laboratory Nares - Not specified [facility] [address] [place] [address] * Smear review (08/02/2017 9:40 AM) Component Value Ref Range Platelet slide review Decreased (A) Specimen Performing Laboratory [facility] AND [address] [place] [address] * Thyroid stimulating hormone (08/02/2017 9:40 AM) Component Value Ref Range TSH 3.17 0.27 - 4.20 uIU/mL Specimen Performing Laboratory Plasma specimen [facility] [address] [place] [address] * T4, free (08/02/2017 9:40 AM) Component Value Ref Range T4, free 1.04 0.90 - 1.70 ng/dL Specimen Performing Laboratory Plasma specimen [facility] AND [address] [place] [address] * MUSCULOSKELETAL ULTRASOUND (07/16/2017 10:36 AM) Narrative [...] 4.5 mg/dL Specimen Performing Laboratory Plasma specimen [facility] DEPARTMENT PATHOLOGY [address] [place] [address] after 10/12/2016 Insurance Payer Benefit Subscriber ID Type Phone Address Plan / Group PENDING MEDICAID PENDING Medicaid MEDICAID
--- OUTSIDE RECORDS SUMMARY | 2017-10-13 23:29 | XMS REPORT | Clinical Summary ---
Author Author JENNIFER [facility] Address Unknown Phone Unavailable Care Team Providers Care Paper Grader Name Role Phone PCP Unavailable Allergies Active [...] 7 days. 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 [facility] Oncology Buck Almodovar, Lower abdominal pain - Encounter MD (Primary Dx);Intractable 12/26/2016 Primo Villalba MD vomiting with nausea, Jose Owen MD unspecified vomiting Angel Lucas MD type;Menorrhagia with Sabrina Hardy Beckie, irregular cycle;Arapahoe's MD disease ([facility]);Hypothyroidism, unspecified type;Hypercalcemia;Sinus tachycardia;Hematuria;Hyp erkalemia;Hyponatremia;Sl ow transit constipation;Adrenal insufficiency ([facility]) 12/23/2016 Orders Only General Internal Medicine [...] time period is included. Specimen Performing Laboratory [employer] FINAL REPORT ABDOMINAL AND PELVIS CT DATED [...] MD Report Verified Date/Time:03/18/2017 16:58:48 Reading Location: [id number] Ortho Consult Reading Room Procedure Note Interface, [...] Report Verified Date/Time: 03/18/2017 16:58:48 Reading Location: [id number] Ortho Consult Reading Room * Manual Differential (03/18/2017 1:16 PM) Only the most recent of 2 results within the time period is included. Component Value Ref Range Total Counted WBC Morphology Normal Platelet Morphology Normal RBC Morphology Normal Specimen Performing Laboratory Blood - Arm, Right [facility] [address] [place] [address] * Urinalysis w/Microscopic + Reflex to Culture - Clear Catch (03/18/2017 1:16 PM) Component Value Ref Range Color, UA Yellow Clarity, UA Hazy Specific Daykin, UA 1.016 1.001 - 1.035 pH, UA [...] Specimen Performing Laboratory Urine - Urine, Clean [facility] Catch [address] [place] [address] * CBC with platelet count + automated [...] Granulocytes-Relative Specimen Performing Laboratory Blood - Arm, [address] [address] * Screen, urine (03/18/2017 1:16 PM) Component Value Ref Range Preg Test, Ur Negative Specimen Performing Laboratory Urine - Urine, Voided [address] [address] * CBC with platelet count + automated diff (03/18/2017 1:16 PM) Only the most recent of 2 results within the time period is included. Specimen Performing Laboratory Blood Narrative The following orders were created for panel order CBC with platelet count + automated diff. Procedure Abnormality Status --------- - ------ CBC with platelet count ...[[id number]]AbnormalFinal result Manual Differential[[id number]] Final result Please view results for these tests on the individual orders. * Urine culture (03/18/2017 1:16 PM) Component Value Ref Range Result >100,000 col/mL skin kenia Specimen Performing Laboratory Urine - Urine, Clean [facility] Catch [address] [place] [address] * Lipase (03/18/2017 1:16 PM) Component Value Ref Range Lipase 28 8 - 78 U/L Specimen Performing Laboratory Blood - Arm, [address] [address] * Amylase (03/18/2017 1:16 PM) Only the most recent of 2 results within the time period is included. Component Value Ref Range Amylase 63 25 - 125 U/L Specimen Performing Laboratory Blood - Arm, [address] [address] * Liver Panel (03/18/2017 1:16 PM) Only [...] Specimen Performing Laboratory Blood - Arm, [place] [address] * Basic metabolic panel (Na, K+, Cl, [...] Specimen Performing Laboratory Blood - Arm, [place] [address] * RHYTHM STRIP - SCAN (12/28/2016 11:50 AM) * POC-Glucose meter (12/26/2016 12:11 PM) Only the most recent of 9 results within the time period is included. Component Value Ref Range POC-Glucose Meter 153 (H)Comment: TESTED AT [address] 70 - 110 mg /dL [place] [address] Specimen Performing [place] [address] * PERMANENT LAB REPORT - SCAN (12/26/2016 11:41 AM) Only the most recent of 2 results within the time period is included. * 2D Echo W/Doppler(CW/PW/Color) (12/26/2016 8:37 AM) Specimen Performing Laboratory DIGISONICS Narrative Echocardiography Laboratory [address] [place] [address] Voice:[phone] Transthoracic Echocardiogram Pat.Name:LIV FOURNIER.ID:[id number] St.Date: 12/26/2016 Refer.MD:SABRINA HARDY Exam Time: 8:37:00 AMStudy Type:Echo Complete Height:63inWeight:160lb BSA: 1.76 m2 DOBAge:1984,31Y Sex: FEMALEBP:90 /50 HR:73 bpmSonogrphr: Blake Arceo [facility] Pat. Stat.:Inpatient Room:2038 Reason for Study:Acute Chest Pain / Suspected CAD History / Clinical:DVT, Thyroid disease, Arapahoe's Disease Procedures:2D ECHO W/ DOPPLER (CW/PW/COLOR) SUMMARY: [...] & Cardiac Out LVOT2.15 cm Parasternal Long Oil Trough Ao An 2.14 cm (1.4-2.6) LV%fs 30.8 [...] - 12/26/2016 5:27 PM CDT Echocardiography Laboratory [address] [place] [address] Voice: [phone] Transthoracic Echocardiogram Pat.Name: LIV FOURNIER Pat.ID: [id number] St.Date: 12/26/2016 Refer.MD: SABRINA HARDY Exam Time: 8:37:00 AM Study Type:Echo Complete Height: 63in Weight: 160lb BSA: 1.76 m2 Age: 6 1985,31Y Sex: FEMALE BP: 90/50 HR: 73 bpm Sonogrphr: Blake Arceo [facility] Pat. Stat.:Inpatient Room: 2038 Reason for [...] Cardiac Out LVOT 2.15 cm Parasternal Long Oil Trough Ao An 2.14 cm (1.4-2.6) LV%fs 30.8 [...] 10.5 fL Specimen Performing [place] [address] * ECG 12 lead (12/24/2016 9:29 PM) Only the most recent of 2 results within the time period is included. Specimen Performing Laboratory [employer] Narrative Ventricular Rate 96 BPM Atrial Rate 96 BPM P-R Interval 202 ms QRS Duration 98 ms Q-T Interval 380 ms QTC Calculation(Bazett) 480 ms P Oil Trough 35 degrees R Oil Trough 45 degrees T Oil Trough 57 degrees Normal sinus rhythm Nonspecific T [...] 380 ms QTC Calculation(Bazett) 480 ms P Oil Trough 35 degrees R Oil Trough 45 degrees T Oil Trough 57 degrees Normal sinus rhythm Nonspecific T wave abnormality Abnormal ECG When compared with ECG of 08-JAN-2016 20:41, Nonspecific T wave abnormality now evident in Inferior leads Nonspecific T wave abnormality, worse in Anterolateral leads Confirmed by MD BRYON, BRANDON ([id number]) on 12/25/2016 10:45:04 PM * Urinalysis w/ Microscopic (12/24/2016 10:13 AM) Component Value Ref Range Color, UA Colorless Clarity, UA Clear Specific Daykin, UA 1.006 1.001 - 1.035 pH, UA [...] Specimen Performing Laboratory Urine - Urine, Clean [facility] Catch [address] [place] [address] * Blood culture #1 (12/24/2016 8:01 AM) Only the most recent of 3 results within the time period is included. Component Value Ref Range Result No growth in 5 days Specimen Performing Laboratory Blood - Arm, Right [address] [address] * Troponin I (12/24/2016 7:43 AM) Component Value Ref Range Troponin I <0.01 0.00 - 0.03 ng/mL Specimen Performing Laboratory Blood - Arm, Left [address] [address] Narrative Effective 06/03/2014: Reference Range Change New: [...] Specimen Performing Laboratory Blood - Arm, Left [facility] [address] [place] [address] Narrative Effective 06/03/2014: CK-MB Reference Range Change New: 0.0-6.6Previous: 0.0-4.9 CK-MB Reference Range: <6.7Normal 6.7-10.0Borderline >10.0 Abnormal * POCT , urine (12/23/2016 8:04 PM) Only the most recent of 2 results within the time period is included. Component Value Ref Range Test Urine, POC Negative Control line present?, Yes POC Background clear?, POC Yes UPT Cassette Lot #, [id number] [id number] UPT Cassette Expiration 09/13/2017 Date, POC Specimen Performing Laboratory Urine [facility] [address] [place] [address] * POCT urinalysis dipstick (12/23/2016 8:02 PM) Only the most recent of 2 results within the time period is included. Component Value Ref Range Glucose Urine, POC Negative Negative Bilirubin Urine, POC Negative Negative Ketones Urine, POC Negative Negative Specific Daykin Urine, 1.010 SG Ratio 1.005 SG Ratio, [...] Negative POC Specimen Performing Laboratory Urine (Catheterized) [facility] [address] [place] [address] * ED ECG Interpretation (12/23/2016 5:16 PM) [...] normal. ST segments normal. T waves normal. Oil Trough is normal. Other findings: no other findings. Clinical Impression: normal ECGECG reviewed and does not meet STEMI criteria. Patient tolerance: Patient tolerated the procedure well with no immediate complications * TSH/Free T4 If Indicated (12/23/2016 4:35 PM) Component Value Ref Range TSH 6.96 (H) 0.35 - 4.94 uIU/mL Specimen Performing Laboratory Blood [address] [address] * Calcium, Ionized (12/23/2016 4:35 PM) Component Value Ref Range Calcium, Ion 1.23 1.12 - 1.27 mmol/L pH, Blood 7.37 Specimen Performing Laboratory Blood [address] [address] * T4, free (12/23/2016 4:35 PM) Component Value Ref Range Free T4 1.02 0.70 - 1.48 ng/dL Specimen Performing Laboratory Blood [address] [address] * Type and screen, automated ([facility] and [facility] only) (12/23/2016 3:41 PM) Component Value Ref Range Ab Scrn NEGATIVE Specimen Performing Laboratory Blood [address] [address] * ABORH, manual (12/23/2016 3:41 PM) Component Value Ref Range ABO Grouping O Rh Factor POS Specimen Performing Laboratory Blood [address] [address] * CT abdomen pelvis without contrast (11/24/2016 [...] MD Report Verified Date/Time:11/24/2016 23:49:06 Reading Location: [address] Consult Reading Room Procedure Note Interface, [...] Report Verified Date/Time: 11/24/2016 23:49:06 Reading Location: [facility] [id number] Consult Reading Room after 10/12/2016
[2017-10-14] MEDS: ONDANSETRON HCL INJ 2 MG/ML VIAL IV PRN ×3 (00:20→18:30)
[2017-10-14] MEDS: MORPHINE SULFATE 2 MG/ML SYR IV PRN ×7 (00:20→22:42)
[2017-10-14] MEDS ORDERED: SEROQUEL25 MG PO ×2 (00:25→12:28)
[2017-10-14] MEDS ORDERED: HYDROCORTISONE10 MG PO ×2 (00:25→12:28)
[2017-10-14] MEDS ORDERED: LORAZEPAM1 MG PO (00:25)
[2017-10-14 05:08] LABS: BASOPHILS % 0.2 % (0.0-1.0); EOSINOPHILS % 0.1 % (0.0-6.0); LYMPHOCYTES # (AUTO) 2.1 (1.0-3.2); LYMPHOCYTES % 25.6 % (18.0-39.1); MEAN CORPUSCULAR HEMOGLOBIN 28.8 pg (28-32); MEAN CORPUSCULAR HGB CONC 32.4 g/dL (31-35); MONOCYTES # (AUTO) 0.5 (0.2-0.8); MONOCYTES % 6.1 % (4.4-11.3); NEUTROPHILS # (AUTO) 5.5 (2.1-6.9); NEUTROPHILS % 67.6 % (38.7-80.0); PLATELET COUNT 277 x10e3/uL (140-360); RED BLOOD COUNT 3.82 x10e6/uL (3.6-5.1); RED CELL DISTRIBUTION WIDTH 14.9 % (11.7-14.4)
[2017-10-14 05:31] LABS: ALANINE AMINOTRANSFERASE 11 IU/L (0-55); ALBUMIN/GLOBULIN RATIO 1.2 (0.8-2.0); ALKALINE PHOSPHATASE 37 IU/L (40-150); ANION GAP 11.3 mmol/L (8-16); BLOOD UREA NITROGEN 8 mg/dL (7-26); BUN/CREATININE RATIO 10 (6-25); CARBON DIOXIDE 19 mmol/L (22-29); CHLORIDE 109 mmol/L (98-107); CREATININE, SERUM 0.78 mg/dL (0.57-1.11); EST GLOMERULAR FILTRATION RATE > 60 ML/MIN (60-); GLUCOSE 91 mg/dL (74-118); POTASSIUM 4.3 mmol/L (3.5-5.1); SODIUM 135 mmol/L (136-145)
[2017-10-14 05:33] LABS: CALCIUM 9.4 mg/dL (8.4-10.2)
[2017-10-14 05:34] LABS: ALBUMIN 3.2 g/dL (3.5-5.0)
[2017-10-14] MEDS ORDERED: LORAZEPAM INJ 2 MG/ML VIAL IV ONE (06:15)
[2017-10-14] MEDS: HYDROCORTISONE SOD SUCCINATE 100 MG VIAL IV SCH ×3 (07:30→21:29)
[2017-10-14] MEDS: PANTOPRAZOLE 40 MG 10ML VIAL IV SCH (07:45)
[2017-10-14] MEDS: SODIUM CHLORIDE 0.9% 1000ML 1,000 ML IV SCH ×3 (07:46→21:29)
[2017-10-14] MEDS ORDERED: PROMETHAZINE 12.5MG/ NACL 0.9% 50 ML ONE (09:10)
[2017-10-14] MEDS ORDERED: PROMETHAZINE 12.5MG/ NACL 0.9% 12.5 MG/50 ML BAG IV ONE (09:30)
[2017-10-14 11:50] VITALS: BP 111/70
[2017-10-14] MEDS: PROMETHAZINE 12.5MG/ NACL 0.9% 12.5 MG/50 ML BAG IV PRN ×4 (12:22→22:42)
[2017-10-14 14:28] VITALS: BP 118/69
[2017-10-14 14:37] VITALS: BP 118/69
[2017-10-14 15:39] VITALS: BP 111/70
--- NOTE | 2017-10-14 17:52 | Diagnostic Imaging Report ---
EXAMINATION: CHEST SINGLE (PORTABLE) INDICATION: \S\[id number] \S\1725 \S\SCREENING COMPARISON: Chest radiograph 11/04/2016 FINDINGS: AP view TUBES and LINES: None. LUNGS: Lungs are well inflated. Lungs are clear. There is no evidence of pneumonia or pulmonary edema. PLEURA: No pleural effusion or pneumothorax. HEART AND MEDIASTINUM: The cardiomediastinal silhouette is unremarkable. BONES AND SOFT TISSUES: No acute osseous lesion. Soft tissues are unremarkable. UPPER ABDOMEN: No free air under the diaphragm. IMPRESSION: No acute thoracic abnormality. Signed by: DR. Keith Conklin MD on 10/14/2017 5:48 PM
--- NOTE | 2017-10-14 18:07 | History and Physical ---
This is coverage for Dr. Manish Randhawa. PRIMARY CARE DOCTOR: Dr. Carreno. FINANCIAL AUDITOR: Dr. Ruiz Don. HISTORY OF PRESENT ILLNESS: Mrs. Fournier is a pleasant 32-year-old female with vomiting. Patient presented to [facility] on October 13, 2017 evening. She had associated diarrhea. There was some abdominal pain. Symptoms were present for 2 days. Patient says that today is her 3rd day where she is not fully able to ingest her medicines. She has problem that she has Rigo's disease. Her normal Minnehaha's medications include hydrocortisone 20 to 25 mg in the morning and hydrocortisone 10 mg in evening. When she came to the ER, she continued to have emesis. Her heart rate was in the 146 range when she initially came to the ER, and she was tachypneic and slightly dusky in skin. It was elected to admit her for observation, hydration, and aggressive followup. There was no hypotension. She sights some nonspecific lower abdominal pain. Patient states she has had a pelvic cyst in the past that was very bothersome. She denies any recent suggestion that she could have some gynecologic process that she knows of, but she is worried that there could be something there. She does not know why she was having this adrenal crisis as she calls it. PAST MEDICAL HISTORY: Hypothyroidism, autoimmune Rigo's disease diagnosed around 2010, anxiety, cholecystectomy, and tonsillectomy in her youth. MEDICATIONS: Medication list reviewed per electronic record. ALLERGIES: PENICILLIN, GABAPENTIN, AND CLINDAMYCIN. SOCIAL HISTORY: No smoking, no drinking, and no drugs. FAMILY HISTORY: Noncontributory to this condition. REVIEW OF SYSTEMS GENERAL: No recent weight changes. OPHTHALMOLOGIC: No double vision. ENT: No dry mouth. LUNGS: No asthma. HEART: No heart attacks. : No blood in urine. GI: No constipation. MUSCULOSKELETAL: Very mild joint pains. DERMATOLOGIC: No rashes. NEUROLOGIC: No seizures. PSYCHIATRIC: Euthymic right now she says. PHYSICAL EXAMINATION VITAL SIGNS: Patient is afebrile, vital signs noted per electronic record. GENERAL: No acute stress, alert and calm on talking but she is slightly anxious with her questions. HEENT: Normocephalic, atraumatic. NECK: Supple. Throat midline. LUNGS: Bilateral air entry, clear. CARDIOVASCULAR: S1 and S2. No murmurs, rubs, or gallops. ABDOMEN: Soft and nontender for the most part, real [id number] discomfort. EXTREMITIES: No clubbing, no cyanosis, and no edema. INTEGUMENT: No rash. No purpura. LABS: Potassium 4.3, 8 BUN, and creatinine 0.8. White count 8, 34 hematocrit, and 277 platelets. Other labs include HCG qualitative, which was negative. Random cortisol level is pending. Albumin level 3.2. Urinalysis with no white cells. IMPRESSION 1. Inability to maintain p.o. intake, gastropathy, not otherwise specified. 2. History of Minnehaha's disease. 3. Hypothyroidism by history. 4. Reported anxiety in the past. 5. No abdominal pain. PLAN: IV hydration will be given. Continue steroids. Phenergan and other antiemetics. Endocrine specialist Dr. Lo. We will start with ultrasound of the abdomen. If there is concern for pelvic issues, may need to get LITHOGRAPHERS PRINTER involved. Screening chest x-ray for now. We will follow along closely. Thank you very much Dr. Carreno and Dr. Randhawa for allowing me a chance to participate in care of Ms. Fournier. Do not hesitate to contact me if I could help in any way. Job#: [id number] BETHANY
[2017-10-14 20:00] VITALS: BP 106/77
[2017-10-14 21:00] VITALS: BP 106/77
[2017-10-15] VITALS (10 sets, daily range): BP systolic 104–116; BP diastolic 56–72
[2017-10-15] MEDS: ONDANSETRON HCL INJ 2 MG/ML VIAL IV PRN ×2 (01:28→11:15)
[2017-10-15] MEDS: PROMETHAZINE 12.5MG/ NACL 0.9% 12.5 MG/50 ML BAG IV PRN ×7 (02:03→23:09)
[2017-10-15] MEDS: MORPHINE SULFATE 2 MG/ML SYR IV PRN ×5 (03:13→23:10)
[2017-10-15] MEDS ORDERED: LORAZEPAM 0.5 MG TAB PO ONE (04:00)
[2017-10-15] MEDS: SODIUM CHLORIDE 0.9% 1000ML 1,000 ML IV SCH ×3 (04:48→18:32)
[2017-10-15 06:33] LABS: BASOPHILS % 0.2 % (0.0-1.0); HEMATOCRIT 32.1 % (34.2-44.1); HEMOGLOBIN 10.3 g/dL (12.0-16.0); LYMPHOCYTES # (AUTO) 1.7 (1.0-3.2); LYMPHOCYTES % 19.1 % (18.0-39.1); MEAN CORPUSCULAR HEMOGLOBIN 28.7 pg (28-32); MEAN CORPUSCULAR HGB CONC 32.1 g/dL (31-35); MEAN CORPUSCULAR VOLUME 89.4 fL (81-99); MONOCYTES # (AUTO) 0.5 (0.2-0.8); MONOCYTES % 5.2 % (4.4-11.3); NEUTROPHILS # (AUTO) 6.5 (2.1-6.9); NEUTROPHILS % 74.9 % (38.7-80.0); PLATELET COUNT 280 x10e3/uL (140-360); RED BLOOD COUNT 3.59 x10e6/uL (3.6-5.1)
[2017-10-15 07:10] LABS: ANION GAP 7.8 mmol/L (8-16); BLOOD UREA NITROGEN 5 mg/dL (7-26); BUN/CREATININE RATIO 6 (6-25); CALCIUM 9.7 mg/dL (8.4-10.2); CARBON DIOXIDE 23 mmol/L (22-29); CHLORIDE 112 mmol/L (98-107); CREATININE, SERUM 0.79 mg/dL (0.57-1.11); EST GLOMERULAR FILTRATION RATE > 60 ML/MIN (60-); GLUCOSE 124 mg/dL (74-118); MAGNESIUM 1.7 MG/DL (1.3-2.1); POTASSIUM 3.8 mmol/L (3.5-5.1); SODIUM 139 mmol/L (136-145)
[2017-10-15] MEDS: PANTOPRAZOLE 40 MG 10ML VIAL IV SCH (08:17)
[2017-10-15] MEDS: HYDROCORTISONE SOD SUCCINATE 100 MG VIAL IV SCH ×2 (08:17→20:18)
--- NOTE | 2017-10-15 09:12 | Diagnostic Imaging Report ---
EXAM: Abdomen 2 Views INDICATION: \S\abd pain COMPARISON: 11/04/2016 FINDINGS: Nonobstructive bowel gas pattern. No signs of pneumoperitoneum. Right upper quadrant surgical clips, likely from cholecystectomy. Unchanged pelvic phleboliths. No definite calcification overlying renal shadows. No acute osseous abnormality. Visualized lower lung daugherty are clear. IMPRESSION: 1. Nonobstructive bowel gas pattern. Signed by: Dr. Rashaad Jordan MD on 10/15/2017 9:08 AM
--- NOTE | 2017-10-15 16:37 | Consultation ---
DATE OF CONSULTATION: October 15, 2017 ENDOCRINE CONSULTATION PATIENT OF 1. Dr. Randhawa. 2. Dr. Turner. Thank you very much for referring this patient. HISTORY OF PRESENT ILLNESS: This is a 32-year-old white female who is very well known to me from her previous hospital admissions in various facilities. At this time, the patient came to the hospital because of nausea, vomiting, and diarrhea. The patient is a known case of Curtiss's disease, and she takes Cortef 20 mg in the morning and 25 mg a night. She had several hospital admissions already mentioned with flare up of Addisonian decompensation. Patient also has history of anxiety, depression, and has been on various medications in the past. PHYSICAL EXAMINATION GENERAL: Today, the patient is alert, awake, a little bit apprehensive. VITALS: Her heart rate is around 78 and blood pressure is 110/70 mmHg. HEENT: Examination essentially unremarkable. Thyroid is palpable. Clinically, she is near euthyroid. CHEST: Bilateral vesicular breathing. She has mild bronchospasm. She has tenderness in the left upper abdomen. CLINICAL IMPRESSION 1. Curtiss's disease, nausea, and vomiting, rule out decompensation of the Curtiss's disease. 2. History of anxiety and hypothyroidism in the past. RECOMMENDATIONS: The plan at this time is to do a free T4, TSH, and ACTH level. Patient has been started on hydrocortisone 50 mg q. 12 hours and will slowly taper it off and put her back on the oral steroids once her oral intake is better. Thanks again for referring this patient. I will be following this patient with you. Job#: [id number] BETHANY CONDON
[2017-10-15] MEDS: ENOXAPARIN SOD INJ 40 MG/0.4 ML SYR SC SCH (17:34)
[2017-10-15] MEDS: LORAZEPAM 0.5 MG TAB PO PRN (17:54)
--- NOTE | 2017-10-15 21:21 | Progress Note ---
DATE: October 15, 2017 INTERNAL MEDICINE PROGRESS NOTE This is coverage for Dr. Randhawa. SUBJECTIVE: Ms. Fournier was seen and examined at bedside. She has hallucinations intermittently during the night. She still has this lower abdominal/pelvic area pain. She remains on IV fluids at 175 mL per hour. She ate 25% of her meals only and she could not tolerate. She though has stable vital signs. REVIEW OF SYSTEMS: No bleeding, no chest pain. OBJECTIVE: VITAL SIGNS: Afebrile, vital signs noted per electronic record. GENERAL: In no acute distress, alert and calm. HEENT: Normocephalic, atraumatic. NECK: Supple. Throat midline. LUNGS: Bilateral air entry, clear. CARDIOVASCULAR: S1, S2. No murmurs, rubs, or gallops. ABDOMEN: Soft, nontender. EXTREMITIES: No clubbing, no cyanosis, there is no edema. INTEGUMENT: No rash, no purpura. LABS: 2.8 potassium, 5 BUN, creatinine 0.8. White count 9, 32 hematocrit, 280,000 platelets. Abdominal x-ray with nonspecific bowel gas pattern. IMPRESSION AND PLAN: 1. Inability to tolerate p.o., possible gastropathy, ileus, decompensation of Louann's versus other. 2. Chronic Louann's, idiopathic. 3. History of anxiety. 4. History of hypothyroidism in the past. Continue steroids intravenously at this time. Try to escalate diet. Psychiatry will see patient regarding hallucinations. Communication Engineer to see the patient tomorrow. If patient can improve, will consider discharging home or else patient may need psychiatry facility if hallucinations continue and she cannot cope with these. Job#: [id number]
[2017-10-16] VITALS (8 sets, daily range): BP systolic 108–119; BP diastolic 61–72
[2017-10-16] MEDS: LORAZEPAM 0.5 MG TAB PO PRN ×2 (00:45→10:40)
[2017-10-16] MEDS: PROMETHAZINE 12.5MG/ NACL 0.9% 12.5 MG/50 ML BAG IV PRN ×7 (02:26→21:16)
[2017-10-16] MEDS: MORPHINE SULFATE 2 MG/ML SYR IV PRN ×6 (03:13→20:19)
[2017-10-16] MEDS: SODIUM CHLORIDE 0.9% 1000ML 1,000 ML IV SCH ×4 (05:30→20:19)
[2017-10-16] MEDS: PANTOPRAZOLE 40 MG 10ML VIAL IV SCH (08:49)
[2017-10-16] MEDS: HYDROCORTISONE SOD SUCCINATE 100 MG VIAL IV SCH ×2 (08:49→20:19)
[2017-10-16 15:37] LABS: FREE T4 (FREE THYROXINE) 1.01 ng/dL (0.9-1.8); THYROID STIMULATING HORMONE 0.746 uIU/mL (0.350-4.940)
--- NOTE | 2017-10-16 16:22 | Consultation ---
DATE OF CONSULTATION: October 16, 2017 PSYCHIATRIC CONSULTATION REASON FOR CONSULTATION: Evaluate the patient's psychosis. HISTORY OF PRESENT ILLNESS: The patient is a 32-year-old female admitted to the hospital for Humphreys disease and diarrhea. Psychiatric consultation is called to evaluate the patient's psychosis and mood. According to the medical record, the patient was complaining of vomiting and diarrhea, and was stressed from abdominal pain. She also has a history of Humphreys, hypothyroid, anxiety. She has been reporting some hallucinations to the nursing staff. The patient is well known to me from previous hospitalization at [facility] for similar presentation where she would complain of hallucinations with the use of steroids. Before assessment, nursing staff reported that the patient was seeing people in the room that were not there. She reported to ER staff of having that started . Upon evaluation today, the patient was found to be in the room. She is alert, awake and oriented to situation. The patient has an IV attached to her. She recognized me. The patient states that she is having intermittent hallucinations. She is seeing television wires moving, paint spreading on the griffith. She has at some point seen her mother in the room, as well as a man and a boy in the room. She claims that the hallucinations are making her more anxious. She also reports having depression due to her medical issues. She denies any hallucinations at this time. She denies any suicidal or homicidal thoughts. The patient complains of poor sleep. She reports some appetite issues due to her nausea. She denies feeling hopeless and helpless. The patient states that when she saw her mother who long ago it scared her, and she reported to staff at that time that she did not want to live, but she denies having any suicidal thoughts. The patient has taken Seroquel in the past to help with sleep, and also the hallucinations before would help. She claims that the Ativan is not helping, and that she had multiple effects to the Klonopin. She is also asking for p.r.n. Ativan. She understands that her blood pressure is in the 110 give and take. She is willing to hold the medications if the blood pressure gets low. Discussed this with the patient and she understands the parameters for when the medication will not be able to be given to her. PAST PSYCHIATRIC HISTORY: The patient reports a history of depression and PTSD. She attempted suicide once in the past. She denies alcohol or drug use. FAMILY HISTORY: The patient with reported history of depression in some family members. SOCIAL HISTORY: The patient states she lives with her . MENTAL STATUS EXAMINATION GENERAL: The patient is a middle-aged female. She is alert, awake and oriented to situation. Her mood is very anxious and depressed. Affect is consistent with mood. She is somewhat anxious and psychomotor state mostly relaxed. She denies any suicidal or homicidal ideations. She denies any visual or auditory hallucinations at this time. Thought process is concrete. She does not elicit paranoia or delusional thinking. Insight and judgment are fair. Memory appears to be grossly intact. CURRENT MEDICATIONS 1. Morphine p.r.n. 2. Ativan p.r.n. 3. Protonix. 4. Sodium chloride. 5. Lovenox. 6. Zofran. 7. Hydrocortisone. LABS: WBC is 8.69, RBC 3.59, hemoglobin 10.3, hematocrit 32.1, and platelets 280,000. Sodium 139, potassium 3.8, chloride 112, CO2 23, BUN 5, creatinine 0.79. ASSESSMENT: Major effective disorder, recurrent, moderate with psychosis; history of posttraumatic stress disorder. PLAN: Discontinue Ativan p.r.n. Add Klonopin p.r.n. p.o. and hold for sedation and also for systolic less than 90. Add Ativan p.r.n. IV anxiety. Also, hold for sedation and systolic blood pressure less than 90. Add Seroquel p.r.n. for psychosis and agitation. Add Seroquel 50 mg p.o. at bedtime. Supportive therapy. Thank you for this consultation. Discussed with nursing staff. DICTATED BY CK APARICIO Job#: [id number] NICCI
[2017-10-16] MEDS: ENOXAPARIN SOD INJ 40 MG/0.4 ML SYR SC SCH (17:18)
[2017-10-16] MEDS: HYDROCORTISONE 10 MG TAB PO SCH (17:18)
[2017-10-16] MEDS: QUETIAPINE FUMARATE 25 MG TAB PO SCH (20:19)
[2017-10-16] MEDS ORDERED: REGLAN10 MG PO (20:50)
--- NOTE | 2017-10-16 21:11 | Progress Note ---
DATE: October 16, 2017 INTERNAL MEDICINE PROGRESS NOTE SUBJECTIVE: Ms. Fournier was seen and examined at bedside. She was able to actually eat a little bit better today. However, she claims of emesis of significant size. She is on normal saline 125 mL per hour. No significant drops in blood pressure noted. REVIEW OF SYSTEMS: No headaches. No rash. OBJECTIVE VITALS: Afebrile. Vital signs noted per electronic record. GENERAL: In no acute distress, alert and calm. Slight discomfort with low in energy. HEENT: Normocephalic, atraumatic. NECK: Supple. Throat midline. LUNGS: Bilateral air entry, clear. CARDIOVASCULAR: S1, S2. No murmurs, rubs or gallops. ABDOMEN: Soft, nontender. EXTREMITIES: No clubbing. No cyanosis. There is no edema. INTEGUMENT: No rash. No purpura. LABS: BUN 5, creatinine 0.8. White count 8.7. IMPRESSION 1. [place], idiopathic, possible crisis. 2. Inability to tolerate p.o. 3. History of anxiety, posttraumatic stress disorder. 4. Hypothyroidism. PLAN: Continue IV steroids at this time. Continue to encourage diet. If she is tolerating oral intake, we may be able to send her home tomorrow. Continue IV fluids for now. Psychiatric medicines adjusted by psychiatry. Job#: [id number] LAURYN
[2017-10-17] VITALS (8 sets, daily range): BP systolic 112–125; BP diastolic 55–80
[2017-10-17] MEDS: PROMETHAZINE 12.5MG/ NACL 0.9% 12.5 MG/50 ML BAG IV PRN ×6 (01:25→22:11)
[2017-10-17] MEDS: MORPHINE SULFATE 2 MG/ML SYR IV PRN ×5 (01:25→20:41)
[2017-10-17] MEDS: CLONAZEPAM 0.5 MG TAB PO PRN ×2 (03:40→15:02)
[2017-10-17] MEDS: ONDANSETRON HCL INJ 2 MG/ML VIAL IV PRN (03:40)
[2017-10-17] MEDS: HYDROCORTISONE 10 MG TAB PO SCH ×2 (09:17→18:04)
[2017-10-17] MEDS: PANTOPRAZOLE 40 MG 10ML VIAL IV SCH (09:17)
[2017-10-17] MEDS: HYDROCORTISONE SOD SUCCINATE 100 MG VIAL IV SCH (09:17)
[2017-10-17] MEDS: SODIUM CHLORIDE 0.9% 1000ML 1,000 ML IV SCH (09:17)
[2017-10-17] MEDS: QUETIAPINE FUMARATE 25 MG TAB PO PRN (10:38)
--- NOTE | 2017-10-17 15:45 | Progress Note ---
DATE: October 17, 2017 PSYCHIATRIC PROGRESS NOTE The patient was evaluated and events noted. Vital signs reviewed. Labs reviewed. The patient is found to be in the room. She is tremoring. She is fearful. She states that she was having episode of hallucinations today where she is seeing spiders on the TV. She reports that the hallucination is better now, but she is still seeing spiders. She was offered Seroquel p.r.n. for her, but she is asking for Ativan instead to help with the anxiety. The patient appears somewhat med seeking at this time. She denies any suicidal ideation. She reports sleeping better yesterday and tolerated Seroquel last night. She denies any side effects of the medication. The patient claims that the Klonopin is not helping. However, due to her blood pressure that tends to run low, we will continue with the Klonopin p.r.n. and Ativan p.r.n. with protocol at this time. ASSESSMENT 1. Major depressive disorder, recurrent, moderate with psychosis. 2. History of posttraumatic stress disorder. PLAN: Continue with Ativan p.r.n. IV with protocol. Continue with Klonopin p.r.n. p.o. with protocol. Continue with Seroquel 50 mg p.o. at bedtime. Add Seroquel 25 mg p.o. daily. Continue with Seroquel p.r.n. p.o. Reported to nursing staff regarding the patient's anxiety and psychosis. Supportive therapy. DICTATED BY CK APARICIO Job#: [id number] HI
[2017-10-17] MEDS: LORAZEPAM INJ 2 MG/ML VIAL IV PRN (16:19)
[2017-10-17] MEDS: ENOXAPARIN SOD INJ 40 MG/0.4 ML SYR SC SCH (18:04)
[2017-10-17] MEDS: DOCUSATE SODIUM 100 MG CAP PO SCH (20:41)
[2017-10-17] MEDS: QUETIAPINE FUMARATE 25 MG TAB PO SCH (20:41)
--- NOTE | 2017-10-17 21:52 | Progress Note ---
DATE: October 17, 2017 INTERNAL MEDICINE PROGRESS NOTE SUBJECTIVE: Ms. Fournier was seen and examined at bedside. She claims to have more hallucinations. She was felt to eat okay, but then states she has emesis later on. Patient is still weaning on steroids appropriately. REVIEW OF SYSTEMS: No headaches, no leg pain. OBJECTIVE VITAL SIGNS: Afebrile. Vital signs noted per electronic record. GENERAL: No acute distress. Alert and calm. HEENT: Normocephalic, atraumatic. NECK: Supple. Throat midline. LUNGS: Bilateral air entry, clear. CARDIOVASCULAR: S1, S2. No murmurs, rubs or gallops. ABDOMEN: Soft. Nonspecific pain in lower abdomen. INTEGUMENTARY: No rash or purpura. NEUROLOGIC: Grossly nonfocal. No tremors. IMPRESSION 1. Hallucinations, psychosis. 2. History of major depressive disorder, recurrent. 3. History of posttraumatic stress disorder. 4. [place] crisis. 5. Inability to tolerate p.o. PLAN: At this time, we will continue current therapy. Psychiatric medications have been adjusted somewhat. Continue hydrocortisone weaning. Patient will have stool softener added. Pain medicine expert will be called in. Will follow along closely. Job#: [id number] LAURYN
[2017-10-17 23:42] LABS: FERRITIN 8.23 ng/mL (4.63-204.00)
[2017-10-17 23:58] LABS: FOLATE > 20.0 ng/mL (7.0-15.4)
[2017-10-18] VITALS (8 sets, daily range): BP systolic 106–126; BP diastolic 67–75
[2017-10-18] MEDS: MORPHINE SULFATE 2 MG/ML SYR IV PRN ×4 (00:45→19:40)
[2017-10-18] MEDS: SODIUM CHLORIDE 0.9% 1000ML 1,000 ML IV SCH ×4 (01:42→14:40)
[2017-10-18] MEDS: QUETIAPINE FUMARATE 25 MG TAB PO PRN ×2 (01:43→17:45)
[2017-10-18] MEDS: PROMETHAZINE 12.5MG/ NACL 0.9% 12.5 MG/50 ML BAG IV PRN ×5 (04:03→22:20)
[2017-10-18] MEDS: MAGNESIUM HYDROXIDE 30 ML UDC PO PRN (05:27)
[2017-10-18] MEDS: ONDANSETRON HCL INJ 2 MG/ML VIAL IV PRN ×3 (06:08→19:50)
[2017-10-18] MEDS ORDERED: METOCLOPRAMIDE HCL 10 MG/2ML VIAL IV ONE (06:30)
[2017-10-18 06:34] LABS: BASOPHILS % 0.3 % (0.0-1.0); EOSINOPHILS % 0.5 % (0.0-6.0); HEMATOCRIT 32.5 % (34.2-44.1); HEMOGLOBIN 10.5 g/dL (12.0-16.0); LYMPHOCYTES # (AUTO) 3.2 (1.0-3.2); LYMPHOCYTES % 35.9 % (18.0-39.1); MEAN CORPUSCULAR HEMOGLOBIN 29.4 pg (28-32); MEAN CORPUSCULAR HGB CONC 32.3 g/dL (31-35); MONOCYTES # (AUTO) 0.8 (0.2-0.8); MONOCYTES % 8.6 % (4.4-11.3); NEUTROPHILS # (AUTO) 4.8 (2.1-6.9); NEUTROPHILS % 54.4 % (38.7-80.0); PLATELET COUNT 269 x10e3/uL (140-360); RED BLOOD COUNT 3.57 x10e6/uL (3.6-5.1); RED CELL DISTRIBUTION WIDTH 14.8 % (11.7-14.4)
[2017-10-18 06:56] LABS: ANION GAP 8.7 mmol/L (8-16); BLOOD UREA NITROGEN 6 mg/dL (7-26); BUN/CREATININE RATIO 8 (6-25); CALCIUM 9.3 mg/dL (8.4-10.2); CARBON DIOXIDE 29 mmol/L (22-29); CHLORIDE 110 mmol/L (98-107); CREATININE, SERUM 0.72 mg/dL (0.57-1.11); EST GLOMERULAR FILTRATION RATE > 60 ML/MIN (60-); GLUCOSE 69 mg/dL (74-118); MAGNESIUM 1.7 MG/DL (1.3-2.1); POTASSIUM 3.7 mmol/L (3.5-5.1); SODIUM 144 mmol/L (136-145)
[2017-10-18] MEDS: PANTOPRAZOLE 40 MG 10ML VIAL IV SCH (08:13)
[2017-10-18] MEDS: DOCUSATE SODIUM 100 MG CAP PO SCH ×3 (08:13→20:59)
[2017-10-18] MEDS: HYDROCORTISONE SOD SUCCINATE 100 MG VIAL IV SCH ×2 (08:13→10:50)
[2017-10-18] MEDS: HYDROCORTISONE 10 MG TAB PO SCH ×2 (08:14→17:00)
[2017-10-18] MEDS: QUETIAPINE FUMARATE 25 MG TAB PO SCH ×2 (08:14→20:58)
[2017-10-18] MEDS: METOCLOPRAMIDE HCL 10 MG/2ML VIAL IV SCH ×2 (12:00→17:45)
[2017-10-18] MEDS ORDERED: PROMETHAZINE HCL (IM) 25 MG/ML VIAL ONE (13:28)
[2017-10-18] MEDS ORDERED: PANTOPRAZOLE 40 MG 10ML VIAL IV STA (13:39)
[2017-10-18] MEDS ORDERED: PANTOPRAZOL 40MG/SOD CHL 0.9% 250 ML IV SCH (13:45)
[2017-10-18] MEDS ORDERED: PANTOPRAZOLE 40 MG 10ML VIAL ONE (13:52)
--- NOTE | 2017-10-18 14:04 | Operative Report ---
DATE OF PROCEDURE: October 18, 2017 REFERRING PHYSICIAN: Dr. Randhawa and Dr. Turner. PROCEDURE PERFORMED: Esophagogastroduodenoscopy with biopsies. INDICATIONS FOR EGD: Intractable nausea and vomiting. MEDICATION: Patient was done under MAC. Please see anesthesiologist's note. PROCEDURE: With the patient in the left lateral decubitus position, the flexible fiberoptic Olympus gastroscope was introduced into the esophagus under direct visualization without any difficulty. There was some patchy erythema noted in the distal esophagus. A minute tongue of velvety red mucosa was noted to extend proximally from the GE junction. That was biopsied to rule out Parker's. The scope was then advanced with ease into the stomach, and mucosa overlying the antrum and the body revealed some patchy erythema and low-grade to moderate edema, and biopsies were obtained and sent to stain for H. pylori. Pylorus appeared to be of normal contour and shape. It was intubated with ease. The scope was advanced all the way to the 2nd portion of the duodenum. The scope was then withdrawn slowly. Mucosa overlying the proximal 2nd portion and the duodenal bulb appeared to be within normal limits. The scope was then withdrawn back into the stomach and retroflexed. The mucosa overlying the fundus and the cardia appeared to be within normal limits. The scope was then straightened out. The stomach was decompressed. The scope was subsequently withdrawn. Patient tolerated the procedure well. IMPRESSION 1. Mild distal esophagitis. 2. Rule out Parker's esophagus. 3. Gastritis, biopsied. Biopsies sent to stain for Helicobacter pylori. PLAN: Follow up histology. Initiate PPI drip. Job#: [id number] NICCI cc:Jaky BOWEN DR.
[2017-10-18] MEDS: PANTOPRAZOL 40MG/SOD CHL 0.9% 50 ML IV SCH ×2 (14:40→19:29)
[2017-10-18] MEDS: ENOXAPARIN SOD INJ 40 MG/0.4 ML SYR SC SCH (17:45)
[2017-10-18] MEDS ORDERED: FENTANYL CITRATE/PF 100MCG/2 ML INJ ONE (19:05)
[2017-10-18] MEDS ORDERED: MIDAZOLAM HCL 2 MG/2 ML VIAL ONE (19:05)
[2017-10-18] MEDS ORDERED: HYDROCORTISONE SOD SUCCINATE 100 MG VIAL ONE (19:43)
[2017-10-18] MEDS ORDERED: PROPOFOL IV EMULSION 10 MG/ML 50 ML VIAL ONE (19:43)
[2017-10-18] MEDS ORDERED: LIDOCAINE HCL 2% LOCAL INJ 5 ML SDV VIAL INJ ONE (19:43)
[2017-10-18] MEDS: LORAZEPAM INJ 2 MG/ML VIAL IV PRN (20:58)
[2017-10-19] VITALS: BP 109/75
[2017-10-19] MEDS: PANTOPRAZOL 40MG/SOD CHL 0.9% 50 ML IV SCH ×5 (00:14→20:00)
[2017-10-19] MEDS: MORPHINE SULFATE 2 MG/ML SYR IV PRN ×7 (00:15→22:58)
[2017-10-19] MEDS: SODIUM CHLORIDE 0.9% 1000ML 1,000 ML IV SCH ×4 (00:20→20:48)
[2017-10-19] MEDS: PROMETHAZINE 12.5MG/ NACL 0.9% 12.5 MG/50 ML BAG IV PRN ×5 (01:15→21:05)
--- NOTE | 2017-10-19 02:16 | Progress Note ---
DATE: October 18, 2017 INTERNAL MEDICINE PROGRESS NOTE SUBJECTIVE: Ms. Fournier was seen and examined at bedside. She continued to have some difficulties keeping fluids down. She did end up going for endoscopy today. There were some positive findings from endoscopy including mild distal esophagitis, there were chronic changes that suggested Parker's esophagus, there was some gastritis with low-grade to moderate findings. Patient was feeling a little bit better towards the evening medications. REVIEW OF SYSTEMS: No bleeding, no rash. OBJECTIVE: VITAL SIGNS: Afebrile, vital signs noted per electronic record. GENERAL: In no acute distress, alert and calm. HEENT: Normocephalic, atraumatic. NECK: Supple. Throat midline. LUNGS: Bilateral air entry, clear. CARDIOVASCULAR: S1, S2. No murmurs, rubs, or gallops. ABDOMEN: Soft, nontender. EXTREMITIES: No clubbing, no cyanosis, there is no edema. INTEGUMENT: No rash, no purpura. IMPRESSION AND PLAN: 1. Gastropathy, inability to tolerate p.o. 2. Hidalgo's with crisis. 3. Anxiety. 4. Hypothyroid disorder. 5. Mild abdominal pain. Proton pump inhibitor is being given now. Continue intravenous fluids. I encouraged patient to avoid substances that may lead to worsening gastritis. Hydrocortisone is still being given and we are weaning it towards maintenance. Follow up treatment effect. Job#: [id number]
--- NOTE | 2017-10-19 03:05 | Progress Note ---
DATE: PSYCHIATRIC PROGRESS NOTE The patient was evaluated and events noted. Upon evaluation today, patient is found to be lying on the bed. She is mostly calm and cooperative. She states that her anxiety is under control. She claims that she is sleeping and eating well. She denies any hallucinations and/or any suicidal ideations. She is taking her medications and denies any side effects from her medication at this time. ASSESSMENT 1. Bipolar I disorder, depressed/psychosis. 2. History of posttraumatic stress disorder. PLAN 1. Continue Seroquel. 2. Continue p.r.n. Ativan. 3. Continue p.r.n. Klonopin. 4. Supportive therapy. Job#: [id number] LAURYN
[2017-10-19] MEDS: LORAZEPAM INJ 2 MG/ML VIAL IV PRN ×3 (03:24→23:43)
[2017-10-19 04:00] VITALS: BP 118/75
[2017-10-19] MEDS: METOCLOPRAMIDE HCL 10 MG/2ML VIAL IV SCH ×5 (06:00→22:58)
[2017-10-19 08:00] VITALS: BP 114/61
[2017-10-19] MEDS: DOCUSATE SODIUM 100 MG CAP PO SCH ×3 (09:36→21:00)
[2017-10-19] MEDS: QUETIAPINE FUMARATE 25 MG TAB PO SCH ×2 (09:36→21:00)
[2017-10-19] MEDS: HYDROCORTISONE 10 MG TAB PO SCH ×2 (09:36→16:43)
[2017-10-19 12:00] VITALS: BP 108/58
[2017-10-19] MEDS: QUETIAPINE FUMARATE 25 MG TAB PO PRN (15:11)
--- NOTE | 2017-10-19 15:49 | Progress Note ---
DATE: October 19, 2017 PSYCHIATRIC PROGRESS NOTE Patient evaluated and events noted. Patient is found to be in the room. She is alert, awake and oriented to situation. She is still complaining of anxiety, states that the Klonopin is not helping her much. She reports having intermittent hallucinations. She denies any suicidal ideation. She denies any problem with sleep. She is taking medication and denies any side effects. She is requesting the Klonopin to be increased. Discussed medication with patient. ASSESSMENT: Depression, recurrent, with psychosis; history of posttraumatic stress disorder. PLAN 1. To reduce Ativan p.r.n. IV with protocol. 2. Increase Klonopin p.r.n. p.o. with protocol. 3. Continue with Seroquel nightly. 4. Continue with Zocor daily. 5. Continue with Seroquel p.r.n. 6. Supportive therapy. Dictated by: CK Santiago Job#: [id number] EV
[2017-10-19 16:00] VITALS: BP 123/72
[2017-10-19] MEDS: CLONAZEPAM 0.5 MG TAB PO PRN ×2 (16:15→21:06)
[2017-10-19] MEDS: ENOXAPARIN SOD INJ 40 MG/0.4 ML SYR SC SCH (16:43)
[2017-10-19 19:10] VITALS: BP 113/72
[2017-10-20] MEDS: PROMETHAZINE 12.5MG/ NACL 0.9% 12.5 MG/50 ML BAG IV PRN ×7 (00:06→22:11)
[2017-10-20] MEDS: PANTOPRAZOL 40MG/SOD CHL 0.9% 50 ML IV SCH ×5 (01:00→21:29)
[2017-10-20] MEDS ORDERED: MAGNESIUM HYDROXIDE 30 ML UDC PO PRN (03:00)
--- NOTE | 2017-10-20 03:10 | Progress Note ---
DATE: October 19, 2017 INTERNAL MEDICINE PROGRESS NOTE SUBJECTIVE: Ms. Fournier was seen and examined at bedside. She continues to have slight improvement. She is having less nausea. She is able to take in more p.o. She remains on proton pump inhibitor drip. She remains overall with less abdominal pain. REVIEW OF SYSTEMS: No nosebleeds, no diarrhea. OBJECTIVE: VITAL SIGNS: Afebrile, vital signs noted per electronic record. GENERAL: In no acute distress, alert and calm. HEENT: Normocephalic, atraumatic. NECK: Supple. Throat midline. LUNGS: Bilateral air entry, few rare rhonchi mostly clear. CARDIOVASCULAR: S1, S2. No murmurs, rubs, or gallops. ABDOMEN: Soft, nontender. EXTREMITIES: No clubbing, no cyanosis, there is no edema. INTEGUMENT: No rash, no purpura. IMPRESSION AND PLAN: 1. Gastropathy, multifactorial. Esophagitis, gastritis, possibly other. 2. Briscoe's crisis, acute. 3. Hypothyroidism. 4. Anxiety, schizoaffective disorder. Will adjust medicines for her stomach. Continue proton pump inhibitor for now. Continue anxiolytic medications. Decrease intravenous fluids slightly. Will follow up closely. Job#: [id number]
[2017-10-20] MEDS: MORPHINE SULFATE 2 MG/ML SYR IV PRN ×5 (05:00→21:25)
[2017-10-20] MEDS: METOCLOPRAMIDE HCL 10 MG/2ML VIAL IV SCH ×3 (05:09→17:06)
[2017-10-20] MEDS: SODIUM CHLORIDE 0.9% 1000ML 1,000 ML IV SCH ×2 (05:10→19:24)
[2017-10-20] MEDS: LORAZEPAM INJ 2 MG/ML VIAL IV PRN ×3 (07:51→23:57)
[2017-10-20 08:22] VITALS: BP 102/75
[2017-10-20] MEDS: HYDROCORTISONE 10 MG TAB PO SCH ×2 (08:56→17:06)
[2017-10-20] MEDS: DOCUSATE SODIUM 100 MG CAP PO SCH ×3 (08:56→21:29)
[2017-10-20] MEDS: QUETIAPINE FUMARATE 25 MG TAB PO SCH ×3 (08:56→21:29)
[2017-10-20 10:18] VITALS: BP 102/73
[2017-10-20 11:55] VITALS: BP 121/72
[2017-10-20] MEDS: MAGNESIUM HYDROXIDE 30 ML UDC PO PRN (12:09)
--- NOTE | 2017-10-20 14:11 | Progress Note ---
DATE: October 20, 2017 PULMONARY MEDICINE PROGRESS NOTE SUBJECTIVE: Patient was seen and examined at bedside. Patient continues to have some nausea. She is able to tolerate more intake. However, the pain is getting better. Still with some low level abdominal pains. REVIEW OF SYSTEMS: No bleeding, no rash. OBJECTIVE VITAL SIGNS: Afebrile. Vital signs noted per electronic record. GENERALLY: No acute distress, alert and calm. HEENT: Normocephalic, atraumatic. NECK: Supple. Throat midline. LUNGS: Bilateral air entry, a few rare rhonchi, mostly clear. CARDIOVASCULAR: S1 and S2. No murmurs, rubs or gallops. ABDOMINAL: Soft, nontender. EXTREMITIES: No clubbing, no cyanosis. There is no edema. INTEGUMENT: No rash. No purpura. LABS: White count 8, hematocrit 32, potassium 3.7. IMPRESSION AND PLAN 1. Inability to tolerate p.o. 2. Anxiety. 3. [place]'s crisis. 4. Hypothyroidism. At this time will continue proton pump inhibitor drip. Continue the addition of promethazine, which is being given IV. Continue psychiatric medicines. Steroids will be continued as part of coverage. Job#: [id number] EV
[2017-10-20] MEDS ORDERED: QUETIAPINE FUMARATE 25 MG TAB PO SCH (15:00)
[2017-10-20 16:30] VITALS: BP 108/70
[2017-10-20] MEDS: ENOXAPARIN SOD INJ 40 MG/0.4 ML SYR SC SCH (17:06)
[2017-10-20 20:18] VITALS: BP 115/70
[2017-10-21] MEDS: METOCLOPRAMIDE HCL 10 MG/2ML VIAL IV SCH ×3 (00:55→12:01)
[2017-10-21 00:56] VITALS: BP 106/78
[2017-10-21] MEDS: ONDANSETRON HCL INJ 2 MG/ML VIAL IV PRN (01:25)
[2017-10-21] MEDS: MORPHINE SULFATE 2 MG/ML SYR IV PRN ×4 (01:25→13:05)
[2017-10-21] MEDS: PANTOPRAZOL 40MG/SOD CHL 0.9% 50 ML IV SCH ×3 (02:30→13:05)
[2017-10-21] MEDS: PROMETHAZINE 12.5MG/ NACL 0.9% 12.5 MG/50 ML BAG IV PRN ×4 (02:47→12:10)
[2017-10-21 05:26] VITALS: BP 105/70
[2017-10-21 07:59] VITALS: BP 103/66
[2017-10-21] MEDS: LORAZEPAM INJ 2 MG/ML VIAL IV PRN (08:06)
[2017-10-21] MEDS: DOCUSATE SODIUM 100 MG CAP PO SCH (08:06)
[2017-10-21] MEDS: HYDROCORTISONE 10 MG TAB PO SCH (08:06)
[2017-10-21] MEDS: SODIUM CHLORIDE 0.9% 1000ML 1,000 ML IV SCH (08:08)
[2017-10-21] MEDS: QUETIAPINE FUMARATE 25 MG TAB PO SCH (09:00)
[2017-10-21 12:19] VITALS: BP 118/72
[2017-10-21] MEDS ORDERED: TYLENOL # 31 EA PO (14:56)
[2017-10-21] MEDS ORDERED: REGLAN10 MG PO (14:56)
[2017-10-21] MEDS ORDERED: SEROQUEL25 MG PO (14:56)
[2017-10-21] MEDS ORDERED: PANTOPRAZOLE SO40 MG PO (15:00)
--- NOTE | 2017-10-22 06:52 | Discharge Summary ---
PRIMARY DIAGNOSES: 1. [place]ans crisis. 2. Inability to tolerate p.o., upper gastrointestinal problems. SECONDARY DIAGNOSES: Include: 1. Esophagitis, possible Parker's esophagus. 2. Gastritis. 3. Hypothyroidism. 4. Anxiety. 5. Cholecystectomy history and tonsillectomy. HOSPITAL COURSE: Ms. Fournier was admitted due to inability to tolerate p.o. intake. She has nausea and throwing up. She was getting dizzy and she was appearing dusky when she came to emergency room. She was not able to tolerate her hydrocortisone on previous days. We immediately gave her IV steroids. IV fluids. Resumed medicines by intravenous route as possible. As she improved, she remained with difficulty tolerating the p.o. intake. She eventually went for upper endoscopy by Dr. Perez, a gastrointestinal specialist. Findings were noted. After proton pump inhibitor drip, reglan, and other supportive therapy, she did get better, so she was able to be discharged. MEDICATIONS ON DISCHARGE: See medication list. ACTIVITY: As tolerated. GI: GI bland. FOLLOWUP: With primary care doctor, Dr. Carreno. Greater than 30 minutes in discharge coordination and care. CALVIN PATEL MD Job#: [id number] DR CONDON
== END 2017-10-21 15:53 | disposition home or self-care (01) | DRG 644 ==
LOC: ER 18:03 → ERHOLD 23:26 → IMCU 10-14 09:39 → OBSVTOIN 10-18 15:53 → MED/SURG2 10-18 16:17
PROVIDERS: ADMIT Internal Medicine; ATTEND Internal Medicine
PROC: 0DB58ZX Excision of Esophagus, Via Natural or Artificial Opening Endoscopic, Diagnostic (ICD-10-PCS; 2017-10-18)
PROC: 0DB68ZX Excision of Stomach, Via Natural or Artificial Opening Endoscopic, Diagnostic (ICD-10-PCS; 2017-10-18)
PROC: 0DB78ZX Excision of Stomach, Pylorus, Via Natural or Artificial Opening Endoscopic, Diagnostic (ICD-10-PCS; principal; 2017-10-18 12:50)
DX: E27.2 Addisonian crisis (principal); F33.3 Major depressive disorder, recurrent, severe with psychotic symptoms; K31.9 Disease of stomach and duodenum, unspecified; K22.70 Barrett's esophagus without dysplasia; K29.70 Gastritis, unspecified, without bleeding; E03.9 Hypothyroidism, unspecified; F41.9 Anxiety disorder, unspecified; Z90.49 Acquired absence of other specified parts of digestive tract; F43.10 Post-traumatic stress disorder, unspecified
CPT/HCPCS: 36415; 43239; 71045; 80048; 80053; 81001; 81025; 82024; 82140; 82533; 82607; 82728; 82746; 83540; 83690; 83735; 84439; 84443; 84466; 84702; 85025; 85045; 88305; 88312; 93005; 99284; G0378; J1650; J1720; J2001; J2060; J2250; J2270; J2405; J2550; J2765; J7030

== ENCOUNTER 2017-11-13 20:14 | Emergency (ER) | payer OTHER ==
[~2017-11-13] VITALS: Ht 160 cm; Wt 77.6 kg
[~2017-11-13 20:14] MED LIST changes: +LORAZEPAM1 MG PO; +REGLAN10 MG PO; +SEROQUEL25 MG PO; +TYLENOL # 31 EA PO
--- OUTSIDE RECORDS SUMMARY | 2017-11-13 20:18 | XMS REPORT | Continuity of Care Document ---
Author Author [facility] Organization [facility] Address [address] [place] [address] Phone Unavailable Care Team Providers Care Cotton Grower Name Role Phone NONSTAFF PCP Unavailable Insurance Providers Guarantor Dora Fournier Address [address] [place] [address] Email [email or web address] Payer [place] Medicaid Policy Number [id number] Subscriber's Name Dora Fournier Relationship 18 Self / Same As Patient Group Number [id number] Group Name UNEMPLOYED Effective Date 15 Advance Directives Directive Response Recorded Date/Time Does the patient have an advance directive? No 10/18/17 8:45pm If yes, is advance directive on file with [facility]? No 10/18/17 8:45pm If not on file with [facility] will patient provide a copy? No 10/18/17 8:45pm Do you have a Directive to Physician? No 10/13/17 9:20pm Do you have a Medical Power of Attendant [place]? No 10/13/17 9:20pm Do you have an out of hospital Do Not Resuscitate Order? No 10/13/17 9:20pm Do you have any special needs we should be aware of? No 10/13/17 9:20pm Do you have a support person here with you today? Yes 10/13/17 9:20pm Did patient receive Notice of Privacy Practices? Yes 10/13/17 9:20pm Did patient receive patient rights and responsibilities? Yes 10/13/17 9:20pm Problems Medical Problem Onset Date Status Addisons disease Unknown Diarrhea Unknown Vomiting Unknown Medications Current Home Medications Medication Dose Units Route Directions Days Qty Instructions Start Date Acetaminophen/Codeine Phosphate (Tylenol # 3*) 1 Ea Tab 1 Tab Oral Every 6 Hours as needed for Pain 25 Tab 10/21/17 Hydrocortisone 10 Mg Tablet 20 Mg Oral Daily Hydrocortisone 10 Mg Tablet 10 Mg Oral Daily At 1700 Lorazepam 1 Mg Tablet 1 Mg Oral Three Times A Day as needed for Anxiety Metoclopramide Hcl (Reglan) 10 Mg Tablet 10 Mg Oral Every 6 Hours as needed for Vomiting 30 Tab 10/16/17 Metoclopramide Hcl (Reglan) 10 Mg Tablet 10 Mg Oral Four Times Daily 100 Tab 10/21/17 Pantoprazole Sodium (Protonix) 40 Mg Tablet.dr 40 Mg Oral Daily 30 Days 10/21/17 Quetiapine Fumarate (Seroquel) 25 Mg Tablet 50 Mg Oral Bedtime 60 Tab Quetiapine Fumarate (Seroquel) 25 Mg Tablet 25 Mg Oral Twice A Day 60 Tab 10/21/17 Past Home Medications Medication Directions Ordered Status Citalopram Hydrobromide (Celexa) 20 Mg Tablet, 20 Mg Oral Daily Discontinued Fludrocortisone Acetate 0.1 Mg Tab, Unknown Dose Oral Daily Discontinued Hydrocortisone 20 Mg Tablet, 20 Mg Oral Daily Discontinued Hydrocortisone 10 Mg Tablet, 10 Mg Oral Use As Directed Discontinued Levothyroxine Sodium (Synthroid) 75 Mcg Tab, 75 Mcg Oral Daily Discontinued Ondansetron (Zofran Odt) 4 Mg Tab.rapdis, 4 Mg Every 6 Hours Discontinued Ondansetron (Zofran Odt) 4 Mg Tab.rapdis, 1 Tab Oral Q4-6H Prn as needed for Nausea And Vomiting 05/12/17 Discontinued Pantoprazole Sodium (Protonix) 40 Mg Tablet.dr, 40 Mg Oral Daily 05/12/17 Discontinued Promethazine Hcl 25 Mg Tablet, 25 Mg Oral Every 6 Hours as needed for Nausea Discontinued Quetiapine Fumarate (Seroquel) 25 Mg Tablet, 25 Mg Oral Daily Discontinued Sucralfate (Carafate) 1 Gm Tablet, 1 Gm Oral Before Meals 05/12/17 Discontinued Tramadol Hcl (Ultram) 50 Mg Tablet, 50 Mg Oral Every 8 Hours as needed for Abdominal Pain 05/12/17 Discontinued Social History Social History Problem Response Recorded Date/Time Onset Date Status Hx Psychiatric Problems Yes 10/18/2017 8:45pm Not Applicable Not Applicable Hx Eating Disorder No 10/18/2017 8:45pm Not Applicable Not Applicable Hx Substance Use Disorder No 10/18/2017 8:45pm Not Applicable Not Applicable Hx Depression Yes 10/18/2017 8:45pm Not Applicable Not Applicable Hx Alcohol Use Y - occassional 10/18/2017 8:45pm Not Applicable Not Applicable Hx Substance Use Treatment No 10/18/2017 8:45pm Not Applicable Not Applicable Hx Physical Abuse No 10/18/2017 8:45pm Not Applicable Not Applicable Smoking Status Start Date Stop Date Former smoker Hospital Discharge Instructions No hospital discharge instruction information available. Plan of Care Discharge Date 10/21/17 3:53pm Disposition HOME, SELF-CARE Instructions/Education Provided Rigo's Disease Prescriptions See Medication Section Additional Instructions/Education Regular Diet Activity as Tolerated Functional Status Query Response Date Recorded Assistive Devices None October 18, 2017 8:45pm Ambulation Ability Independent October 18, 2017 8:45pm Toileting Ability Independent October 19, 2017 6:36pm Allergies, Adverse Reactions, Alerts Allergen Type Severity Reaction Status Last Updated Clindamycin Allergy Mild RASH Active 01/14/16 Gabapentin Allergy Intermediate AMS Active 01/14/16 penicillin Allergy Severe ANAPHYLACTIC Active 01/14/16 Immunizations No immunization information available. Vital Signs Acute Vital Signs Vital Response Date/Time Temperature (Fahrenheit) 97.9 degrees F (97.6 - 99.5) 10/21/2017 12:19pm Pulse Pulse Rate (adult) 104 bpm (60 - 90) 10/21/2017 12:19pm Respiratory Rate 21 bpm (12 - 24) 10/21/2017 12:19pm Blood Pressure 118/72 mm Hg 10/21/2017 12:19pm Height 5 ft 3 in 10/14/2017 12:09pm Weight 171 lb 10/13/2017 6:26pm Body Mass Index 30.3 kg/m^2 10/18/2017 8:45pm Results Laboratory Results Test Name Result Units Flags Reference Collection Date/Time Result Date/ Time Comments Bedside Glucose 171 mg/dL H 70-120 05/10/2017 7:53am 05/10/2017 8:23am Meter ID: [id number] Creatine Kinase 39 IU/L 29-168 05/05/2017 11:1805/05/2017 12:21pm Creatine Kinase MB 0.40 ng/mL 0.00-5.00 05/05/2017 11:1805/05/2017 12:29pm Troponin I < 0.001 ng/mL 0-0.300 05/05/2017 11:1805/05/2017 12:29pm White Blood Count 8.84 x10e3/uL 4.8-10.8 10/18/2017 6:1510/18/2017 6 :45am Red Blood Count 3.57 x10e6/uL L 3.6-5.1 10/18/2017 6:10/18/2017 6: 45am Hemoglobin 10.5 g/dL L 12.0-16.0 10/18/2017 6:10/18/2017 6:45am Hematocrit 32.5 % L 34.2-44.1 10/18/2017 6:10/18/2017 6:45am Mean Corpuscular Volume 91.0 fL 81-99 10/18/2017 6:10/18/2017 6: 45am Mean Corpuscular Hemoglobin 29.4 pg 28-32 10/18/2017 6:10/18/2017 6:45am Mean Corpuscular Hemoglobin Concent 32.3 g/dL 31-35 10/18/2017 6:10/18/2017 6:45am Red Cell Distribution Width 14.8 % H 11.7-14.4 10/18/2017 6:2017 6:45am Platelet Count 269 x10e3/uL 140-360 10/18/2017 6:1510/18/2017 6: 45am Neutrophils (%) (Auto) 54.4 % 38.7-80.0 10/18/2017 6:10/18/2017 6: 45am Lymphocytes (%) (Auto) 35.9 % 18.0-39.1 10/18/2017 6:1510/18/2017 6: 45am Monocytes (%) (Auto) 8.6 % 4.4-11.3 10/18/2017 6:15am 10/18/2017 6: 45am Eosinophils (%) (Auto) 0.5 % 0.0-6.0 10/18/2017 6:15am 10/18/2017 6: 45am Basophils (%) (Auto) 0.3 % 0.0-1.0 10/18/2017 6:1510/18/2017 6:45am IM GRANULOCYTES % 0.3 % 0.0-1.0 10/18/2017 6:1510/18/2017 6:45am Neutrophils # (Auto) 4.8 2.1-6.9 10/18/2017 6:15am 10/18/2017 6:45am Lymphocytes # (Auto) 3.2 1.0-3.2 10/18/2017 6:10/18/2017 6:45am Monocytes # (Auto) 0.8 0.2-0.8 10/18/2017 6:1510/18/2017 6:45am Eosinophils # (Auto) 0.0 0.0-0.4 10/18/2017 6:1510/18/2017 6:45am Basophils # (Auto) 0.0 0.0-0.1 10/18/2017 6:1510/18/2017 6:45am Absolute Immature Granulocyte (auto 0.03 x10e3/uL 0-0.1 10/18/2017 6: 1510/18/2017 6:45am Percent Reticulocyte Count 1.2 % 0.8-2.2 10/17/2017 7:06am 10/17/2017 11:18pm Urine Color YELLOW YELLOW 10/13/2017 6:pm 10/13/2017 8:20pm Urine Clarity CLEAR CLEAR 10/13/2017 6:pm 10/13/2017 8:20pm Urine Specific [place] 1.010 1.010-1.025 10/13/2017 6:pm 2017 8:20pm Urine pH 5 5 - 7 10/13/2017 6:pm 10/13/2017 8:20pm Urine Leukocyte Esterase NEGATIVE NEGATIVE 10/13/2017 6:pm 2017 8:20pm Urine Nitrite NEGATIVE NEGATIVE 10/13/2017 6:pm 10/13/2017 8:20pm Urine Protein NEGATIVE NEGATIVE 10/13/2017 6:29pm 10/13/2017 8:20pm Urine Glucose (UA) NEGATIVE NEGATIVE 10/13/2017 6:29pm 10/13/2017 8: 20pm Urine Ketones NEGATIVE NEGATIVE 10/13/2017 6:29pm 10/13/2017 8:20pm Urine Urobilinogen 0.2 mg/dL 0.2 - 1 10/13/2017 6:29pm 10/13/2017 8: 20pm Urine Bilirubin NEGATIVE NEGATIVE 10/13/2017 6:29pm 10/13/2017 8: 20pm Urine Blood NEGATIVE NEGATIVE 10/13/2017 6:29pm 10/13/2017 8:20pm Urine WBC NONE /HPF 0-5 10/13/2017 6:29pm 10/13/2017 8:30pm Urine RBC NONE /HPF 0-5 10/13/2017 6:29pm 10/13/2017 8:30pm Urine Bacteria NONE /HPF NONE 10/13/2017 6:29pm 10/13/2017 8:30pm Urine Epithelial Cells NONE /LPF NONE 10/13/2017 6:29pm 10/13/2017 8: 30pm Urine Test NEGATIVE NEGATIVE 10/13/2017 6:29pm 10/13/2017 8 :22pm Sodium Level 144 mmol/L 136-145 10/18/2017 6:15am 10/18/2017 7:01am Potassium Level 3.7 mmol/L 3.5-5.1 10/18/2017 6:15am 10/18/2017 7:01am Chloride Level 110 mmol/L H 98-107 10/18/2017 6:15am 10/18/2017 7:01am Carbon Dioxide Level 29 mmol/L 10/18/2017 6:15am 10/18/2017 7: 01am Anion Gap 8.7 mmol/L 8-16 10/18/2017 6:15am 10/18/2017 7:01am Blood Urea Nitrogen 6 mg/dL L 02-0810/18/2017 6:1510/18/2017 7:01am Creatinine 0.72 mg/dL 0.57-1.11 10/18/2017 6:15am 10/18/2017 7:01am BUN/Creatinine Ratio 8 610/18/2017 6:15am 10/18/2017 7:01am Estimat Glomerular Filtration Rate > 60 ML/MIN 60- 10/18/2017 6:15 7:01am Ranges were taken from the National Kidney Disease Education Program and the National Kid[employer] Foundation literature. Reference ranges: 60 or greater: Normal 16-59 (for 3 consecutive months): Chronic kidney disease 15 or less: Kidney failure Glucose Level 69 mg/dL L 74-118 10/18/2017 6:1510/18/2017 7:01am Calcium Level 9.3 mg/dL 8.4-10.2 10/18/2017 6:1510/18/2017 7:01am Magnesium Level 1.7 MG/DL 1.3-2.1 10/18/2017 6:1510/18/2017 7:01am Iron Level 27 ug/dL L 50-170 10/17/2017 7:0610/17/2017 11:24pm Total Iron Binding Capacity 325 ug/dL 261-478 10/17/2017 7:2017 11:24pm Percent Iron Saturation 8 % L 15-50 10/17/2017 7:0610/17/2017 11: 24pm Transferrin 232 mg/dL 180-382 10/17/2017 7:0610/17/2017 11:24pm Ferritin 8.23 ng/mL 4.63-204.00 10/17/2017 7:0610/17/2017 11:44pm Total Bilirubin 0.4 mg/dL 0.2-1.2 10/14/2017 5:00am 10/14/2017 5:36am Aspartate Amino Transf (AST/SGOT) 26 IU/L 5-34 10/14/2017 5:00am 2017 5:36am Alanine Aminotransferase (ALT/SGPT) 11 IU/L 0-55 10/14/2017 5:00am 5:36am Ammonia 37 UG/DL 31-123 10/18/2017 6:1510/18/2017 7:02am Total Protein 5.9 g/dL # L 6.5-8.1 10/14/2017 5:00am 10/14/2017 5:36am VERIFIED PREVIOUS RESULTS Albumin 3.2 g/dL # L 3.5-5.0 10/14/2017 5:00am 10/14/2017 5:36am VERIFIED PREVIOUS RESULTS Globulin 2.7 g/dL 2.3-3.5 10/14/2017 5:00am 10/14/2017 5:36am Albumin/Globulin Ratio 1.2 0.8-2.0 10/14/2017 5:00am 10/14/2017 5: 36am Alkaline Phosphatase 37 IU/L L 40-150 10/14/2017 5:00am 10/14/2017 5: 36am Lipase 38 U/L 8-78 10/13/2017 7:27pm 10/13/2017 8:01pm Vitamin B12 Level 787 pg/mL 213-816 10/17/2017 7:06am 10/17/2017 11: 58pm Folate > 20.0 ng/mL H 7.0-15.4 10/17/2017 7:06am 10/17/2017 11:58pm Free Thyroxine 1.01 ng/dL 0.9-1.8 10/16/2017 2:44pm 10/16/2017 3:40pm Thyroid Stimulating Hormone (TSH) 0.746 uIU/mL 0.350-4.940 10/16/2017 2: 44pm 10/16/2017 3:40pm Human Chorionic Gonadotropin, Qual NEGATIVE NEGATIVE 10/13/2017 7: 27pm 10/13/2017 7:48pm ACTH Baseline 5.8 pg/mL L 7.2-63.3 10/17/2017 7:06am 10/18/2017 10:41pm ACTH reference interval for samples collected between 7 and 10 AM. Performed at: - [address] [id number] [employer] Operator: Ta Stover MD, Phone: [phone] Total Cortisol 7.6 10/13/2017 7:27pm 10/18/2017 9:44am Reference Range: Cortisol AM 6.2 - 19.4 ug/dL Cortisol PM 2.3 - 11.9 ug/dL Testing performed by: [address] [id number] Dir: Ta Stover MD Procedures Procedure Status Date Provider(s) EXCISION OF ESOPHAGOGASTRIC JUNCTION, ENDO, DIAGN Completed 05/10/17 SHASTA SRIVASTAVA MD EGD with biopsy Completed 10/18/17 LAUREN DAVIS MD Encounters Encounter Location Arrival/Admit Date Discharge/Depart Date Attending Provider Discharged Inpatient [facility] 10/18/17 3:53pm 10/21/17 3:53pm JONATHON GUTIÉRREZ MD Discharged Inpatient [facility] 05/07/17 7:27am 05/12/17 1:50pm STEPHANE GARCIA MD
--- OUTSIDE RECORDS SUMMARY | 2017-11-13 20:18 | XMS REPORT | Clinical Summary ---
Author Author JENNIFER [facility] Address Unknown Phone Unavailable Care Team Providers Care Entry Processor Name Role Phone PCP Unavailable Allergies Active [...] 7 days. 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 [facility] Oncology Buck Almodovar, Lower abdominal pain - Encounter MD (Primary Dx);Intractable 12/26/2016 Primo Villalba MD vomiting with nausea, Jose Owen MD unspecified vomiting Angel Lucas MD type;Menorrhagia with Sabrina Hardy Beckie, irregular cycle;Hardee's MD disease ([facility]);Hypothyroidism, unspecified type;Hypercalcemia;Sinus tachycardia;Hematuria;Hyp erkalemia;Hyponatremia;Sl ow transit constipation;Adrenal insufficiency ([facility]) 12/23/2016 Orders Only General Internal Medicine 11/24/2016 Emergency Emergency Medicine Markides, Yoly Felipa, Abdominal pain, vomiting, - MD and diarrhea 11/25/2016 after 11/12/2016 Social History Tobacco Use Types Packs/Day Years [...] time period is included. Specimen Performing Laboratory [employer] FINAL REPORT ABDOMINAL AND PELVIS CT DATED [...] MD Report Verified Date/Time:03/18/2017 16:58:48 Reading Location: [facility] C0[facility] Ortho Consult Reading Room Procedure Note [...] Report Verified Date/Time: 03/18/2017 16:58:48 Reading Location: [facility] C0[facility] Ortho Consult Reading Room * Manual Differential (03/18/2017 1:16 PM) Only the most recent of 2 results within the time period is included. Component Value Ref Range Total Counted WBC Morphology Normal Platelet Morphology Normal RBC Morphology Normal Specimen Performing Laboratory Blood - Arm, Right [facility] [address] [place] [address] * Urinalysis w/Microscopic + Reflex to Culture - Clear Catch (03/18/2017 1:16 PM) Component Value Ref Range Color, UA Yellow Clarity, UA Hazy Specific [place], UA 1.016 1.001 - 1.035 pH, UA [...] Specimen Performing Laboratory Urine - Urine, Clean [facility] Catch [address] [place] [address] * CBC with platelet count + automated [...] Granulocytes-Relative Specimen Performing Laboratory Blood - Arm, [address] [address] * Screen, urine (03/18/2017 1:16 PM) Component Value Ref Range Preg Test, Ur Negative Specimen Performing Laboratory Urine - Urine, Voided [address] [address] * CBC with platelet count + automated diff (03/18/2017 1:16 PM) Only the most recent of 2 results within the time period is included. Specimen Performing Laboratory Blood Narrative The following orders were created for panel order CBC with platelet count + automated diff. Procedure Abnormality Status --------- - ------ CBC with platelet count ...[[id number]]AbnormalFinal result Manual Differential[[id number]] Final result Please view results for these tests on the individual orders. * Urine culture (03/18/2017 1:16 PM) Component Value Ref Range Result >100,000 col/mL skin kenia Specimen Performing Laboratory Urine - Urine, Clean [facility] Catch [address] [place] [address] * Lipase (03/18/2017 1:16 PM) Component Value Ref Range Lipase 28 8 - 78 U/L Specimen Performing Laboratory Blood - Arm, [address] [address] * Amylase (03/18/2017 1:16 PM) Only the most recent of 2 results within the time period is included. Component Value Ref Range Amylase 63 25 - 125 U/L Specimen Performing Laboratory Blood - Arm, [address] [address] * Liver Panel (03/18/2017 1:16 PM) Only [...] Specimen Performing Laboratory Blood - Arm, [place] [address] * Basic metabolic panel (Na, K+, Cl, [...] Specimen Performing Laboratory Blood - Arm, [place] [address] * RHYTHM STRIP - SCAN (12/28/2016 11:50 AM) * POC-Glucose meter (12/26/2016 12:11 PM) Only the most recent of 9 results within the time period is included. Component Value Ref Range POC-Glucose Meter 153 (H)Comment: TESTED AT [address] 70 - 110 mg /dL [place] [address] Specimen Performing [place] [address] * PERMANENT LAB REPORT - SCAN (12/26/2016 11:41 AM) Only the most recent of 2 results within the time period is included. * 2D Echo W/Doppler(CW/PW/Color) (12/26/2016 8:37 AM) Specimen Performing Laboratory DIGISONICS Narrative Echocardiography Laboratory [address] [place] [address] Voice:[phone] Transthoracic Echocardiogram Pat.Name:LIV FOURNIER.ID:[id number] St.Date: 12/26/2016 Refer.MD:SABRINA HARDY Exam Time: 8:37:00 AMStudy Type:Echo Complete Height:63inWeight:160lb BSA: 1.76 m2 DOBAge:1984,31Y Sex: FEMALEBP:90 /50 HR:73 bpmSonogrphr: Blake Arceo [facility] Pat. Stat.:Inpatient Room:2038 Reason for Study:Acute Chest Pain / Suspected CAD History / Clinical:DVT, Thyroid disease, Hardee's Disease Procedures:2D ECHO W/ DOPPLER (CW/PW/COLOR) SUMMARY: [...] & Cardiac Out LVOT2.15 cm Parasternal [place] Ao An 2.14 cm (1.4-2.6) LV%fs 30.8 [...] - 12/26/2016 5:27 PM CDT Echocardiography Laboratory [address] [place] [address] Voice: [phone] Transthoracic Echocardiogram Pat.Name: LIV FOURNIER Pat.ID: [id number] St.Date: 12/26/2016 Refer.MD: SABRINA HARDY Exam Time: 8:37:00 AM Study Type:Echo Complete Height: 63in Weight: 160lb BSA: 1.76 m2 Age: 4 1985,31Y Sex: FEMALE BP: 90/50 HR: 73 bpm Sonogrphr: Blake Arceo [facility] Pat. Stat.:Inpatient Room: 2038 Reason for [...] Cardiac Out LVOT 2.15 cm Parasternal [place] Ao An 2.14 cm (1.4-2.6) LV%fs 30.8 [...] 10.5 fL Specimen Performing Laboratory [place] [address] * ECG 12 lead (12/24/2016 9:29 PM) Only the most recent of 2 results within the time period is included. Specimen Performing Laboratory [facility] Narrative Ventricular Rate 96 BPM Atrial Rate 96 BPM P-R Interval 202 ms QRS Duration 98 ms Q-T Interval 380 ms QTC Calculation(Bazett) 480 ms P [place] 35 degrees R [place] 45 degrees T [place] 57 degrees Normal sinus rhythm Nonspecific T [...] 380 ms QTC Calculation(Bazett) 480 ms P [place] 35 degrees R [place] 45 degrees T [place] 57 degrees Normal sinus rhythm Nonspecific T wave abnormality Abnormal ECG When compared with ECG of 08-JAN-2016 20:41, Nonspecific T wave abnormality now evident in Inferior leads Nonspecific T wave abnormality, worse in Anterolateral leads Confirmed by MD BRYON, BRANDON ([id number]) on 12/25/2016 10:45:04 PM * Urinalysis w/ Microscopic (12/24/2016 10:13 AM) Component Value Ref Range Color, UA Colorless Clarity, UA Clear Specific [place], UA 1.006 1.001 - 1.035 pH, UA [...] Specimen Performing Laboratory Urine - Urine, Clean [facility] Catch [address] [place] [address] * Blood culture #1 (12/24/2016 8:01 AM) Only the most recent of 3 results within the time period is included. Component Value Ref Range Result No growth in 5 days Specimen Performing Laboratory Blood - Arm, Right [address] [address] * Troponin I (12/24/2016 7:43 AM) Component Value Ref Range Troponin I <0.01 0.00 - 0.03 ng/mL Specimen Performing Laboratory Blood - Arm, Left [address] [address] Narrative Effective 06/03/2014: Reference Range Change New: [...] Specimen Performing Laboratory Blood - Arm, Left [facility] [address] [place] [address] Narrative Effective 06/03/2014: CK-MB Reference Range Change New: 0.0-6.6Previous: 0.0-4.9 CK-MB Reference Range: <6.7Normal 6.7-10.0Borderline >10.0 Abnormal * POCT , urine (12/23/2016 8:04 PM) Only the most recent of 2 results within the time period is included. Component Value Ref Range Test Urine, POC Negative Control line present?, Yes POC Background clear?, POC Yes UPT Cassette Lot #, POC [id number] UPT Cassette Expiration 09/13/2017 Date, POC Specimen Performing Laboratory Urine [facility] [address] [place] [address] * POCT urinalysis dipstick (12/23/2016 8:02 PM) Only the most recent of 2 results within the time period is included. Component Value Ref Range Glucose Urine, POC Negative Negative Bilirubin Urine, POC Negative Negative Ketones Urine, POC Negative Negative Specific [place] Urine, 1.010 SG Ratio 1.005 SG Ratio, [...] Negative POC Specimen Performing Laboratory Urine (Catheterized) [facility] [address] [place] [address] * ED ECG Interpretation (12/23/2016 5:16 PM) [...] normal. ST segments normal. T waves normal. [place] is normal. Other findings: no other findings. Clinical Impression: normal ECGECG reviewed and does not meet STEMI criteria. Patient tolerance: Patient tolerated the procedure well with no immediate complications * TSH/Free T4 If Indicated (12/23/2016 4:35 PM) Component Value Ref Range TSH 6.96 (H) 0.35 - 4.94 uIU/mL Specimen Performing Laboratory Blood [address] [address] * Calcium, Ionized (12/23/2016 4:35 PM) Component Value Ref Range Calcium, Ion 1.23 1.12 - 1.27 mmol/L pH, Blood 7.37 Specimen Performing Laboratory Blood [address] [address] * T4, free (12/23/2016 4:35 PM) Component Value Ref Range Free T4 1.02 0.70 - 1.48 ng/dL Specimen Performing Laboratory Blood [address] [address] * Type and screen, automated ([facility] and [facility] only) (12/23/2016 3:41 PM) Component Value Ref Range Ab Scrn NEGATIVE Specimen Performing Laboratory Blood [address] [address] * ABORH, manual (12/23/2016 3:41 PM) Component Value Ref Range ABO Grouping O Rh Factor POS Specimen Performing Laboratory Blood [address] [address] * CT abdomen pelvis without contrast (11/24/2016 [...] MD Report Verified Date/Time:11/24/2016 23:49:06 Reading Location: [address] Consult Reading Room Procedure Note Interface, [...] Report Verified Date/Time: 11/24/2016 23:49:06 Reading Location: [facility] [id number] Consult Reading Room after 11/12/2016
--- OUTSIDE RECORDS SUMMARY | 2017-11-13 20:18 | XMS REPORT | Clinical Summary ---
Author Author [facility] Address Unknown Phone Unavailable Care Team Providers Care Movie Projectionist Name Role Phone Robert Stokes MD PCP [...] tablet daily. PT throw up today 08/13/2017 [id number] Take 1 tablet by mouth Active n-dss 160 mg iron-1 mg-60 every morning. PT throw mcg tablet up today 08/13/2017 LORAZepam (ATIVAN) 1 MG Take 1 mg by mouth every Active tablet 12 (twelve) hours as needed for anxiety. zolpidem (AMBIEN) 10 mg Take 10 mg by mouth Active tablet nightly as needed for sleep. sulfamethoxazole-trimetho Take 1 tablet by mouth 2 [...] moderate pain for up to 7 days. promethazine (PHENERGAN) Insert 1 suppository (25 10 0 09/16/1908/05 25 MG suppository mg total) into the rectum suppository 18 18 every 6 (six) hours as needed for nausea or vomiting for up to 30 days. promethazine (PHENERGAN) Take 1 tablet (12.5 mg 10 tablet 0 09/16/19 10/16/19 12.5 MG tablet total) by mouth every 6 18 18 (six) hours as needed for nausea or vomiting for up to 30 days. Active Problems Problem Noted Date Dehydration 08/04/2017 Intractable nausea and vomiting 08/03/2017 Anxiety 08/03/2017 Hypothyroidism 08/03/2017 Pheochromocytoma 08/03/2017 Gastroenteritis 08/03/2017 Addisonian crisis 08/02/2017 Encounters Date Type Specialty Care Team Description 09/13/2017 [facility] General Surgery Rosas Perez MD Addisonian crisis - Encounter Ricardo Garcia DO (Primary Dx); 09/15/2017 Stanley Murrieta MD Intractable vomiting with KohMikey mendez MD nausea, unspecified vomiting type; Left flank pain; Dehydration 08/02/2017 [facility] Internal Medicine Jewel Chamberlain MD Addisonian crisis - Encounter Ricardo Garcia DO (Primary Dx); 08/05/2017 Dehydration; Intractable vomiting with nausea, unspecified vomiting type; Abdominal pain, unspecified abdominal location; Anemia, unspecified type; Anxiety 07/15/2017 Emergency Emergency Medicine Rosy Salas MD Cellulitis of left upper extremity (Primary Dx) 06/25/2017 Emergency Emergency Medicine [place] M[place] MD Electrolyte abnormality (Primary Dx) after 11/12/2016 Social History Tobacco Use Types Packs/Day Years Used Date Former Smoker Cigarettes Quit: 09/23/2016 Smokeless Tobacco: Never Used Alcohol Use Drinks/Week oz/Week Comments Yes occasional Sex Assigned at Date Recorded Not on file Last Filed Vital Signs Vital Sign Reading Time Taken Blood Pressure 114/69 09/15/2017 7:34 AM DIET CONSULTANT Pulse 109 09/15/2017 7:34 AM DIET CONSULTANT Temperature 36.7 C (98 F) 09/15/2017 7:34 AM DIET CONSULTANT Respiratory Rate 16 09/15/2017 7:34 AM DIET CONSULTANT Oxygen Saturation 99% 09/15/2017 7:34 AM DIET CONSULTANT Inhaled Oxygen - - Concentration Weight 65.8 kg (145 lb) 09/13/2017 12:42 PM DIET CONSULTANT Height 157.5 cm (5' 2") 09/13/2017 12:42 PM DIET CONSULTANT Body Mass Index 26.52 09/13/2017 12:42 PM DIET CONSULTANT Plan of Treatment Health Maintenance Due Date Last Done Comments PAP SMEAR 01/02/2004 INFLUENZA VACCINE 02/14/2018 Procedures Procedure Name Priority Date/Time Associated Diagnosis Comments MUSCULOSKELETAL Routine 07/16/2017 Results for this ULTRASOUND 10:36 AM DIET CONSULTANT procedure are in the results section. after 11/12/2016 Results * Urinalysis screen and microscopy, with [...] None seen UA Specimen Performing Laboratory Urine [facility] DEPARTMENT OF PATHOLOGY AND GENOMIC MEDICINE [address] [place] [address] [place] [address] * hCG qualitative, urine screen (09/15/2017 12:30 AM) Only the most recent of 2 results within the time period is included. Component Value Ref Range hCG qualitative, urine Negative Negative Comment: The manufacturers stated sensitivity of HcG test for serum is >/=10 mIU/ml and urine is >/=20mIU/ml. Specimen Performing Laboratory Urine [facility] DEPARTMENT OF PATHOLOGY AND GENOMIC MEDICINE [id number] [place] [address] [place] [address] * Estimated GFR (09/14/2017 6:23 AM) Only [...] and Americans. Specimen Performing Laboratory Plasma specimen [facility] DEPARTMENT OF PATHOLOGY AND GENOMIC MEDICINE [address] [place] [address] [place] [address] * CBC with platelet and differential (09/14/2017 [...] (promyelocytes, myelocytes, metamyelocytes) Specimen Performing Laboratory Blood [facility] PATHOLOGY AND [facility] [address] [place] [address] * Basic metabolic panel (09/14/2017 6:23 AM) [...] 10.2 mg/dL Specimen Performing Laboratory Plasma specimen [facility] OF PATHOLOGY AND [facility] [address] [place] [address] * Troponin (09/13/2017 5:26 PM) Only the [...] myocardial injury. Specimen Performing Laboratory Plasma specimen [facility] DEPARTMENT OF PATHOLOGY AND GENOMIC MEDICINE [address] [place] [address] * ECG 12 lead (09/13/2017 3:28 PM) Only the most recent of 3 results within the time period is included. Component Value Ref Range Ventricular rate 95 Atrial rate 95 CO interval 156 QRSD interval 88 QT interval 356 QTC interval 447 P axis 1 49 QRS axis 1 70 T wave axis 38 EKG impression Normal sinus rhythm-Normal ECG-In automated comparison with ECG of 02-AUG-2017 09:52,-No significant change was found- Specimen Performing Laboratory [facility] [address] [place] [address] * CT Abdomen Pelvis W Wo Contrast (09/13/2017 3:07 PM) Specimen Performing Laboratory [facility] [address] [place] [address] Narrative EXAMINATION:CT ABDOMEN PELVIS W WO CONTRAST CLINICAL HISTORY:L flank painpossible Appling's crisis vs renal stone vs perinephric absces [...] 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 No definitive calcifications in the area of the adrenal glands are visualized. 4. Post cholecystectomy. 5. 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 No definitive calcifications in the area of the adrenal glands are visualized. 4. Post cholecystectomy. 5. Small cyst within the liver adjacent to the falciform ligament [id number] * Partial thromboplastin time, activated (09/13/2017 1:50 PM) Only the most recent of 2 results within the time period is included. Component Value Ref Range PTT 29.9 23.0 - 36.0 sec Comment: PTT therapeutic range for unfractionated heparin is 61.0-112.0 seconds which corresponds to Anti-Xa 0.3-0.7 U/ml. Specimen Performing Laboratory Blood [facility] PATHOLOGY [address] [place] [address] * Prothrombin time with INR (09/13/2017 1:50 [...] vein thrombosis/pulmonary embolism. Specimen Performing Laboratory Blood [facility] PATHOLOGY AND [address] [place] [address] * hCG qualitative, serum screen (09/13/2017 1:50 PM) Component Value Ref Range hCG qualitative, serum Negative Specimen Performing Laboratory Blood [facility] [address] [place] [address] * Magnesium level (09/13/2017 1:50 PM) Only the most recent of 2 results within the time period is included. Component Value Ref Range Magnesium 2.2 1.6 - 2.6 mg/dL Specimen Performing Laboratory Plasma specimen [facility] [address] [place] [address] * Lipase level (09/13/2017 1:50 PM) Only the most recent of 3 results within the time period is included. Component Value Ref Range Lipase 41 13 - 60 U/L Specimen Performing Laboratory Plasma specimen [facility] [address] [place] [address] * Hepatic function panel (09/13/2017 1:50 PM) Component Value Ref Range Albumin 4.5 3.5 - 5.0 g/dL Total bilirubin 0.5 0.0 - 1.2 mg/dL Bilirubin direct 0.1 0.0 - 0.3 mg/dL Alkaline phosphatase 51 35 - 104 U/L Protein 7.8 6.3 - 8.3 g/dL Comment: 4.6-7.0 g/dL 1 week 4.4-7.6 g/dL 7 months-1year 5.1-7.3 g/dL 1-2 years 5.6-7.5 g/dL >3 years 6.0-8.0 g/dL 18-150 6.3-8.3 g/dL ALT 18 5 - 50 U/L AST 24 10 - 35 U/L Specimen Performing Laboratory Plasma specimen [facility] DEPARTMENT OF PATHOLOGY AND GENOMIC MEDICINE [address] [place] [address] * ECG ED Preliminary Interpretation - NOT AN ORDER (09/13/2017 1:05 PM) Only the most recent of 3 results within the time period is included. Dora Perez MD 09/13/20176:34 PM ECG ED Preliminary Interpretation - Not an Order Performed by: ROSAS PEREZ Authorized by: ROSAS PEREZ ECG reviewed by ED Physician in the absence of a finance administrator: yes Previous ECG: Previous ECG:Compared to current [...] 11 ug/dl Specimen Performing Laboratory Plasma specimen [facility] DEPARTMENT OF PATHOLOGY AND GENOMIC MEDICINE [address] [place] [address] * Comprehensive metabolic panel (08/03/2017 5:15 AM) [...] 5.5 (L) 6.3 - 8.3 g/dL Comment: [place] 4.6-7.0 g/dL 1 week 4.4-7.6 g/dL 7 [...] 1.2 mg/dL Specimen Performing Laboratory Plasma specimen [facility] PATHOLOGY AND [facility] [address] [place] [address] [place] [address] * hCG quantitative, serum (08/02/2017 1:52 PM) Component Value Ref Range hCG quantitative, serum 1 0 - 5 mIU/mL Comment: Reference range for HCG Quant applies to males and non- females. Post Menopausal 0.0 - 8.1 mIU/mL Specimen Performing Laboratory Plasma specimen [facility] DEPARTMENT OF PATHOLOGY AND [facility] MEDICINE [address] [place] [address] * CT Abdomen Pelvis W Contrast (08/02/2017 1:02 PM) Specimen Performing Laboratory [facility] [address] [place] [address] Narrative EXAMINATION:CT ABDOMEN PELVIS W CONTRAST CLINICAL [...] No acute abnormality. IMPRESSION: No acute abnormality. [facility]-[id number] Procedure Note [facility], Radiology Results Incoming - 08/02/2017 1:23 PM DIET CONSULTANT EXAMINATION: CT ABDOMEN PELVIS W CONTRAST [...] No acute abnormality. IMPRESSION: No acute abnormality. [facility]-[id number] * Adrenocorticotropic hormone (08/02/2017 11:35 AM) Component Value Ref Range Adrenocorticotropic 99.1 (H) 7.2 - 63.3 pg/mL hormone Specimen Performing Laboratory Blood [facility] DEPARTMENT OF PATHOLOGY AND GENOMIC MEDICINE [address] [place] [address] * Influenza antigen (08/02/2017 9:45 AM) Component Value Ref Range Influenza antigen Negative for Influenza A/B antigen. Comment: Specimen Information Specimen Source: Nares Specimen Site: Not specified Specimen Performing Laboratory Nares - Not specified [facility] PATH[facility] [address] [place] [address] * Smear review (08/02/2017 9:40 AM) Component Value Ref Range Platelet slide review Decreased (A) Specimen Performing Laboratory [facility] OF PATHOLOGY AND [address] [place] [address] * Thyroid stimulating hormone (08/02/2017 9:40 AM) Component Value Ref Range TSH 3.17 0.27 - 4.20 uIU/mL Specimen Performing Laboratory Plasma specimen [facility] PATHOLOGY AND [address] [place] [address] * T4, free (08/02/2017 9:40 AM) Component Value Ref Range T4, free 1.04 0.90 - 1.70 ng/dL Specimen Performing Laboratory Plasma specimen [facility] PATHOLOGY AND [address] [place] [address] * MUSCULOSKELETAL ULTRASOUND (07/16/2017 10:36 AM) Narrative [...] 4.5 mg/dL Specimen Performing Laboratory Plasma specimen [facility] DEPARTMENT PATHOLOGY [address] [place] [address] after 11/12/2016 Insurance Payer Benefit Subscriber ID Type Phone Address Plan / Group MEDICAID MEDICAID xxxxxxxxx [place] [address]
[2017-11-13] MEDS ORDERED: KETOROLAC TROMETHAMINE 30 MG/ML VIAL IV ONE (21:30)
[2017-11-13] MEDS ORDERED: SODIUM CHLORIDE 0.9% 1000ML 1,000 ML IV ONE (21:45)
[2017-11-13] MEDS ORDERED: ONDANSETRON HCL INJ 2 MG/ML VIAL IV ONE (21:45)
[2017-11-13] MEDS ORDERED: MORPHINE SULFATE 2 MG/ML SYR IV STA (22:49)
[2017-11-13] MEDS ORDERED: PROMETHAZINE 12.5MG/ NACL 0.9% 12.5 MG/50 ML BAG IV ONE (23:00)
[2017-11-13 23:16] VITALS: BP 104/86
== END 2017-11-13 23:15 | disposition home or self-care (01) ==
LOC: FSED 20:14
DX: R10.30 Lower abdominal pain, unspecified (principal); R11.10 Vomiting, unspecified; E27.1 Primary adrenocortical insufficiency; F17.210 Nicotine dependence, cigarettes, uncomplicated
CPT/HCPCS: 99284; J1885; J2405; J7030

== ENCOUNTER 2017-11-14 09:34 | Emergency (ER) | payer OTHER ==
[~2017-11-14] VITALS: Ht 160 cm; Wt 77.6 kg
--- OUTSIDE RECORDS SUMMARY | 2017-11-14 09:38 | XMS REPORT | Continuity of Care Document ---
Author Author [facility] Organization [facility] Address [address] [place] [address] Phone Unavailable Care Team Providers Care Carver Hand Name Role Phone NONSTAFF PCP Unavailable Insurance Providers Guarantor Dora Fournier Address [address] [place] [address] Email [email or web address] Payer [place] Medicaid Policy Number [id number] Subscriber's Name Dora Fournier Relationship 18 Self / Same As Patient Group Number [id number] Group Name UNEMPLOYED Effective Date 15 Advance Directives Directive Response Recorded Date/Time Does the patient have an advance directive? No 10/18/17 8:45pm If yes, is advance directive on file with [facility]? No 10/18/17 8:45pm If not on file with [facility] will patient provide a copy? Yes 11/13/17 8:12pm Do you have a Directive to Physician? No 11/13/17 8:12pm Do you have a Medical Power of Private Sector Executive? No 11/13/17 8:12pm Do you have an out of hospital Do Not Resuscitate Order? No 11/13/17 8:12pm Do you have any special needs we should be aware of? No 11/13/17 8:12pm Do you have a support person here with you today? Yes 11/13/17 8:12pm Did patient receive Notice of Privacy Practices? Yes 11/13/17 8:12pm Did patient receive patient rights and responsibilities? Yes 11/13/17 8:12pm Problems Medical Problem Onset Date Status Addisons [...] Applicable Smoking Status Start Date Stop Date Never Smoker Hospital Discharge Instructions No hospital discharge instruction information available. Plan of Care Discharge Date 11/13/17 11:15pm Disposition HOME, SELF-CARE Condition at Discharge Stable Instructions/Education Provided Abdominal Pain - Adult Vomiting - Adult Prescriptions See Medication Section Referrals SHAILA TIJERINA MD Address: [address] [place] [id number] Additional Instructions/Education REST; TAKE MEDICATIONS PRESRIBED; FOLLOW UP WITH YOUR PCP; Functional Status No functional status information available. Allergies, Adverse Reactions, Alerts Allergen Type Severity Reaction Status Last Updated Clindamycin Allergy Mild RASH Active 01/14/16 Gabapentin Allergy Intermediate AMS Active 01/14/16 penicillin Allergy Severe ANAPHYLACTIC Active 01/14/16 Immunizations No immunization information available. Vital Signs Acute Vital Signs Vital Response Date/Time Temperature (Fahrenheit) 97.9 degrees F (97.6 - 99.5) 10/21/2017 12:19pm Pulse Pulse Rate (adult) 88 bpm (60 - 90) 11/13/2017 11:16pm Respiratory Rate 16 bpm (12 - 24) 11/13/2017 11:16pm Blood Pressure 104/86 mm Hg 11/13/2017 11:16pm Height 5 ft 3 in 11/13/2017 8:55pm Weight 171 lb 11/13/2017 8:55pm Body Mass Index 30.3 kg/m^2 11/13/2017 8:55pm Results Laboratory Results Test Name Result Units Flags Reference Collection Date/Time Result Date/ Time Comments Bedside Glucose 171 mg/dL H 70-120 05/10/2017 7:53am 05/10/2017 8:23am Meter ID: [id number] Creatine Kinase 39 IU/L 29-168 05/05/2017 11:18am 05/05/2017 12:21pm Creatine Kinase MB 0.40 ng/mL 0.00-5.00 05/05/2017 11:18am 05/05/2017 12:29pm Troponin I < 0.001 ng/mL 0-0.300 05/05/2017 11:18am 05/05/2017 12:29pm White Blood Count 8.84 x10e3/uL 4.8-10.8 10/18/2017 6:1510/18/2017 6 :45am Red Blood Count 3.57 x10e6/uL L 3.6-5.1 10/18/2017 6:1510/18/2017 6: 45am Hemoglobin 10.5 g/dL L 12.0-16.0 10/18/2017 6:1510/18/2017 6:45am Hematocrit 32.5 % L 34.2-44.1 10/18/2017 6:10/18/2017 6:45am Mean Corpuscular Volume 91.0 fL 81-99 10/18/2017 6:10/18/2017 6: 45am Mean Corpuscular Hemoglobin 29.4 pg 28-32 10/18/2017 6:1510/18/2017 6:45am Mean Corpuscular Hemoglobin Concent 32.3 g/dL 31-35 10/18/2017 6:10/18/2017 6:45am Red Cell Distribution Width 14.8 % H 11.7-14.4 10/18/2017 6:152017 6:45am Platelet Count 269 x10e3/uL 140-360 10/18/2017 6:10/18/2017 6: 45am Neutrophils (%) (Auto) 54.4 % 38.7-80.0 10/18/2017 6:10/18/2017 6: 45am Lymphocytes (%) (Auto) 35.9 % 18.0-39.1 10/18/2017 6:10/18/2017 6: 45am Monocytes (%) (Auto) 8.6 % 4.4-11.3 10/18/2017 6:1510/18/2017 6: 45am Eosinophils (%) (Auto) 0.5 % 0.0-6.0 10/18/2017 6:1510/18/2017 6: 45am Basophils (%) (Auto) 0.3 % 0.0-1.0 10/18/2017 6:15am 10/18/2017 6:45am IM GRANULOCYTES % 0.3 % 0.0-1.0 10/18/2017 6:15am 10/18/2017 6:45am Neutrophils # (Auto) 4.8 2.1-6.9 10/18/2017 6:15am 10/18/2017 6:45am Lymphocytes # (Auto) 3.2 1.0-3.2 10/18/2017 6:15am 10/18/2017 6:45am Monocytes # (Auto) 0.8 0.2-0.8 10/18/2017 6:15am 10/18/2017 6:45am Eosinophils # (Auto) 0.0 0.0-0.4 10/18/2017 6:15am 10/18/2017 6:45am Basophils # (Auto) 0.0 0.0-0.1 10/18/2017 6:15am 10/18/2017 6:45am Absolute Immature Granulocyte (auto 0.03 x10e3/uL 0-0.1 10/18/2017 6: 15am 10/18/2017 6:45am Percent Reticulocyte Count 1.2 % 0.8-2.2 10/17/2017 7:06am 10/17/2017 11:18pm Urine Color YELLOW YELLOW 10/13/2017 6:29pm 10/13/2017 8:20pm Urine Clarity CLEAR CLEAR 10/13/2017 6:pm 10/13/2017 8:20pm Urine Specific [place] 1.010 1.010-1.025 10/13/2017 6:pm 2017 8:20pm Urine [...] 10/18/2017 7:01am Carbon Dioxide Level 29 mmol/L 22-29 10/18/2017 6:15am 10/18/2017 7: 01am Anion Gap 8.7 mmol/L 8-16 10/18/2017 6:15am 10/18/2017 7:01am Blood Urea Nitrogen 6 mg/dL L 7-10/18/2017 6:15am 10/18/2017 7:01am Creatinine 0.72 mg/dL 0.57-1.11 10/18/2017 6:15am 10/18/2017 7:01am BUN/Creatinine Ratio 8 6-10/18/2017 6:15am 10/18/2017 7:01am Estimat Glomerular Filtration Rate > 60 ML/MIN 60- 10/18/2017 6:15am 7:01am Ranges were taken from the National Kidney Disease Education Program and the National Kidney Foundation literature. Reference ranges: 60 or greater: Normal 16-59 (for 3 consecutive months): Chronic kidney disease 15 or less: Kidney failure Glucose Level 69 mg/dL L 74-118 10/18/2017 6:15am 10/18/2017 7:01am Calcium Level 9.3 mg/dL 8.4-10.2 10/18/2017 6:15am 10/18/2017 7:01am Magnesium Level 1.7 MG/DL 1.3-2.1 10/18/2017 6:15am 10/18/2017 7:01am Iron Level 27 ug/dL L 50-170 10/17/2017 7:06am 10/17/2017 11:24pm Total Iron Binding Capacity 325 ug/dL 261-478 10/17/2017 7:06am 2017 11:24pm Percent Iron Saturation 8 % L 15-50 10/17/2017 7:06am 10/17/2017 11: 24pm Transferrin 232 mg/dL 180-382 10/17/2017 7:06am 10/17/2017 11:24pm Ferritin 8.23 ng/mL 4.63-204.00 10/17/2017 7:06am 10/17/2017 11:44pm Total Bilirubin 0.4 mg/dL 0.2-1.2 10/14/2017 5:00am 10/14/2017 5:36am Aspartate Amino Transf (AST/SGOT) 26 IU/L 5-34 10/14/2017 5:00am 2017 5:36am Alanine Aminotransferase (ALT/SGPT) 11 IU/L 0-55 10/14/2017 5:00am 5:36am Ammonia 37 UG/DL 31-123 10/18/2017 6:15am 10/18/2017 7:02am Total Protein 5.9 g/dL # L [...] between 7 and 10 AM. Performed at: [facility] [employer] [id number] Warp Dresser: Ta Stover MD, Phone: [phone] Total Cortisol 7.6 10/13/2017 7:27pm 10/18/2017 9:44am Reference Range: Cortisol AM 6.2 - 19.4 ug/dL Cortisol PM 2.3 - 11.9 ug/dL Testing performed by: [id number] [address] [address] Dir: Ta Stover MD Procedures Procedure Status Date Provider(s) EXCISION OF ESOPHAGOGASTRIC JUNCTION, ENDO, DIAGN Completed 05/10/17 SHASTA SRIVASTAVA MD EXCISION OF STOMACH, PYLORUS, ENDO, DIAGN Completed 10/18/17 LAUREN DAVIS MD EXCISION OF ESOPHAGUS, ENDO, DIAGN Completed 10/18/17 LAUREN DAVIS MD EXCISION OF STOMACH, ENDO, DIAGN Completed 10/18/17 LAUREN DAVIS MD Encounters Encounter Location Arrival/Admit Date Discharge/Depart Date Attending Provider Departed Emergency Room [facility] 11/13/17 8:14pm 11:15pm ABBIE KRAMER MD Discharged Inpatient [facility] 10/18/17 3:53pm 10/21/17 3:53pm JONATHON GUTIÉRREZ MD Discharged Inpatient [facility] 05/07/17 7:27am 05/12/17 1:50pm STEPHANE GARCIA MD
--- OUTSIDE RECORDS SUMMARY | 2017-11-14 09:38 | XMS REPORT | Clinical Summary ---
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 PT throw up today 08/13/2017 [id number] Take 1 tablet by mouth Active n-dss [...] Date Type Specialty Care Team Description 09/13/2017 [facility] General Surgery Rosas Perez MD Addisonian crisis - Encounter Ricardo Garcia DO (Primary Dx); 09/15/2017 Stanley Murrieta MD Intractable vomiting with KohMikey mendez MD nausea, unspecified vomiting type; Left flank pain; Dehydration 08/02/2017 [facility] Internal Medicine Jewel Chamberlain MD Addisonian crisis - Encounter Ricardo Garcia DO (Primary Dx); 08/05/2017 Dehydration; Intractable vomiting with nausea, unspecified vomiting type; Abdominal pain, unspecified abdominal location; Anemia, unspecified type; Anxiety 07/15/2017 Emergency Emergency Medicine Rosy Salas MD Cellulitis of left upper extremity (Primary Dx) 06/25/2017 Emergency Emergency Medicine [place] MD Electrolyte abnormality (Primary Dx) after 11/13/2016 Social History Tobacco Use Types Packs/Day Years Used Date Former Smoker Cigarettes Quit: 09/23/2016 Smokeless Tobacco: Never Used Alcohol Use Drinks/Week oz/Week Comments Yes occasional Sex Assigned at Date Recorded Not on file Last Filed Vital Signs Vital Sign Reading Time Taken Blood Pressure 114/69 09/15/2017 7:34 AM MACHINE ZIPPER TRIMMER Pulse 109 09/15/2017 7:34 AM MACHINE ZIPPER TRIMMER Temperature 36.7 C (98 F) 09/15/2017 7:34 AM MACHINE ZIPPER TRIMMER Respiratory Rate 16 09/15/2017 7:34 AM MACHINE ZIPPER TRIMMER Oxygen Saturation 99% 09/15/2017 7:34 AM MACHINE ZIPPER TRIMMER Inhaled Oxygen - - Concentration Weight 65.8 kg (145 lb) 09/13/2017 12:42 PM MACHINE ZIPPER TRIMMER Height 157.5 cm (5' 2") 09/13/2017 12:42 PM MACHINE ZIPPER TRIMMER Body Mass Index 26.52 09/13/2017 12:42 PM MACHINE ZIPPER TRIMMER Plan of Treatment Health Maintenance Due Date Last Done Comments PAP SMEAR 01/02/2004 INFLUENZA VACCINE 02/14/2018 Procedures Procedure Name Priority Date/Time Associated Diagnosis Comments MUSCULOSKELETAL Routine 07/16/2017 Results for this ULTRASOUND 10:36 AM MACHINE ZIPPER TRIMMER procedure are in the results section. after 11/13/2016 Results * Urinalysis screen and microscopy, with [...] None seen UA Specimen Performing Laboratory Urine [facility] DEPARTMENT OF PATHOLOGY AND GENOMIC MEDICINE [address] [place] [address] [place] [address] * hCG qualitative, urine screen (09/15/2017 12:30 AM) Only the most recent of 2 results within the time period is included. Component Value Ref Range hCG qualitative, urine Negative Negative Comment: The manufacturers stated sensitivity of HcG test for serum is >/=10 mIU/ml and urine is >/=20mIU/ml. Specimen Performing Laboratory Urine [facility] DEPARTMENT OF PATHOLOGY AND GENOMIC MEDICINE [id number] [place] [address] [place] [address] * Estimated GFR (09/14/2017 6:23 AM) Only [...] and Americans. Specimen Performing Laboratory Plasma specimen [facility] DEPARTMENT OF PATHOLOGY AND GENOMIC MEDICINE [id number] [place] [address] [place] [address] * CBC with platelet and differential (09/14/2017 [...] (promyelocytes, myelocytes, metamyelocytes) Specimen Performing Laboratory Blood [facility] PATHOLOGY AND [facility] [address] [place] [address] * Basic metabolic panel (09/14/2017 6:23 AM) [...] 10.2 mg/dL Specimen Performing Laboratory Plasma specimen [facility] OF PATHOLOGY AND [facility] [address] [place] [address] * Troponin (09/13/2017 5:26 PM) Only the [...] myocardial injury. Specimen Performing Laboratory Plasma specimen [facility] DEPARTMENT OF PATHOLOGY AND GENOMIC MEDICINE [address] [place] [address] * ECG 12 lead (09/13/2017 3:28 PM) Only the most recent of 3 results within the time period is included. Component Value Ref Range Ventricular rate 95 Atrial rate 95 IN interval 156 QRSD interval 88 QT interval 356 QTC interval 447 P axis 1 49 QRS axis 1 70 T wave axis 38 EKG impression Normal sinus rhythm-Normal ECG-In automated comparison with ECG of 02-AUG-2017 09:52,-No significant change was found- Specimen Performing Laboratory [facility] [address] [place] [address] * CT Abdomen Pelvis W Wo Contrast (09/13/2017 3:07 PM) Specimen Performing Laboratory [facility] [address] [place] [address] Narrative EXAMINATION:CT ABDOMEN PELVIS W WO CONTRAST CLINICAL HISTORY:L flank painpossible Juab's crisis vs renal stone vs perinephric absces [...] 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 No definitive calcifications in the area of the adrenal glands are visualized. 4. Post cholecystectomy. 5. 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 No definitive calcifications in the area of the adrenal glands are visualized. 4. Post cholecystectomy. 5. Small cyst within the liver adjacent to the falciform ligament [id number] * Partial thromboplastin time, activated (09/13/2017 1:50 PM) Only the most recent of 2 results within the time period is included. Component Value Ref Range PTT 29.9 23.0 - 36.0 sec Comment: PTT therapeutic range for unfractionated heparin is 61.0-112.0 seconds which corresponds to Anti-Xa 0.3-0.7 U/ml. Specimen Performing Laboratory Blood [facility] [address] [place] [address] * Prothrombin time with INR (09/13/2017 1:50 [...] vein thrombosis/pulmonary embolism. Specimen Performing Laboratory Blood [facility] PATHOLOG[facility] AND [address] [place] [address] * hCG qualitative, serum screen (09/13/2017 1:50 PM) Component Value Ref Range hCG qualitative, serum Negative Specimen Performing Laboratory Blood [facility] [address] [place] [address] * Magnesium level (09/13/2017 1:50 PM) Only the most recent of 2 results within the time period is included. Component Value Ref Range Magnesium 2.2 1.6 - 2.6 mg/dL Specimen Performing Laboratory Plasma specimen [facility] [address] [place] [address] * Lipase level (09/13/2017 1:50 PM) Only the most recent of 3 results within the time period is included. Component Value Ref Range Lipase 41 13 - 60 U/L Specimen Performing Laboratory Plasma specimen [facility] [address] [place] [address] * Hepatic function panel (09/13/2017 1:50 PM) [...] 35 U/L Specimen Performing Laboratory Plasma specimen [facility] DEPARTMENT OF PATHOLOGY AND GENOMIC MEDICINE [address] [place] [address] * ECG ED Preliminary Interpretation - NOT AN ORDER (09/13/2017 1:05 PM) Only the most recent of 3 results within the time period is included. Dora Perez MD 09/13/20176:34 PM ECG ED Preliminary Interpretation - Not an Order Performed by: ROSAS PEREZ Authorized by: ROSAS PEREZ ECG reviewed by ED Physician in the absence of a meat counter clerk: yes Previous ECG: Previous ECG:Compared to [...] 11 ug/dl Specimen Performing Laboratory Plasma specimen [facility] DEPARTMENT OF PATHOLOGY AND GENOMIC MEDICINE [address] [place] [address] * Comprehensive metabolic panel (08/03/2017 5:15 AM) [...] 5.5 (L) 6.3 - 8.3 g/dL Comment: [place] 4.6-7.0 g/dL 1 week 4.4-7.6 g/dL 7 [...] 1.2 mg/dL Specimen Performing Laboratory Plasma specimen [facility] AND [facility] [address] [place] [address] [place] [address] * hCG quantitative, serum (08/02/2017 1:52 PM) Component Value Ref Range hCG quantitative, serum 1 0 - 5 mIU/mL Comment: Reference range for HCG Quant applies to males and non- females. Post Menopausal 0.0 - 8.1 mIU/mL Specimen Performing Laboratory Plasma specimen [facility] DEPARTMENT OF PATHOLOGY AND [facility] MEDICINE [address] [place] [address] * CT Abdomen Pelvis W Contrast (08/02/2017 1:02 PM) Specimen Performing Laboratory [facility] [address] [place] [address] Narrative EXAMINATION:CT ABDOMEN PELVIS W CONTRAST CLINICAL [...] No acute abnormality. IMPRESSION: No acute abnormality. [facility]-[id number] Procedure Note [facility], Radiology Results Incoming - 08/02/2017 1:23 PM MACHINE ZIPPER TRIMMER EXAMINATION: CT ABDOMEN PELVIS W CONTRAST CLINICAL [...] No acute abnormality. IMPRESSION: No acute abnormality. [facility]-[id number] * Adrenocorticotropic hormone (08/02/2017 11:35 AM) Component Value Ref Range Adrenocorticotropic 99.1 (H) 7.2 - 63.3 pg/mL hormone Specimen Performing Laboratory Blood [facility] DEPARTMENT OF PATHOLOGY AND GENOMIC MEDICINE [address] [place] [address] * Influenza antigen (08/02/2017 9:45 AM) Component Value Ref Range Influenza antigen Negative for Influenza A/B antigen. Comment: Specimen Information Specimen Source: Nares Specimen Site: Not specified Specimen Performing Laboratory Nares - Not specified [facility] [address] [place] [address] * Smear review (08/02/2017 9:40 AM) Component Value Ref Range Platelet slide review Decreased (A) Specimen Performing Laboratory [facility] OF PATHOLOGY AND [address] [place] [address] * Thyroid stimulating hormone (08/02/2017 9:40 AM) Component Value Ref Range TSH 3.17 0.27 - 4.20 uIU/mL Specimen Performing Laboratory Plasma specimen [facility] PATH[facility] AND [address] [place] [address] * T4, free (08/02/2017 9:40 AM) Component Value Ref Range T4, free 1.04 0.90 - 1.70 ng/dL Specimen Performing Laboratory Plasma specimen [facility] PATH[facility] AND [address] [place] [address] * MUSCULOSKELETAL ULTRASOUND (07/16/2017 10:36 AM) Narrative [...] 4.5 mg/dL Specimen Performing Laboratory Plasma specimen [facility] DEPARTMENT PATHOLOGY [address] [place] [address] after 11/13/2016 Insurance Payer Benefit Subscriber ID Type Phone Address Plan / Group MEDICAID MEDICAID xxxxxxxxx [place] [address]
--- OUTSIDE RECORDS SUMMARY | 2017-11-14 09:38 | XMS REPORT | Clinical Summary ---
Author Author JENNIFER [facility] Address Unknown Phone Unavailable Care Team Providers Care Marketing Technologist Name Role Phone PCP Unavailable Allergies Active [...] 7 days. 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 [facility] Oncology Buck Almodovar, Lower abdominal pain - Encounter MD (Primary Dx);Intractable 12/26/2016 Primo Villalba MD vomiting with nausea, Jose Owen MD unspecified vomiting Angel Lucas MD type;Menorrhagia with Sabrina Hardy Beckie, irregular cycle;Finney's MD disease ([facility]);Hypothyroidism, unspecified type;Hypercalcemia;Sinus tachycardia;Hematuria;Hyp erkalemia;Hyponatremia;Sl ow transit constipation;Adrenal insufficiency ([facility]) 12/23/2016 Orders Only General Internal Medicine 11/24/2016 Emergency Emergency Medicine Markides, Yoly Felipa, Abdominal pain, vomiting, - MD and diarrhea 11/25/2016 after 11/13/2016 Social History Tobacco Use Types [...] time period is included. Specimen Performing Laboratory [employer] FINAL REPORT ABDOMINAL AND PELVIS CT DATED [...] MD Report Verified Date/Time:03/18/2017 16:58:48 Reading Location: [id number] Ortho Consult Reading Room Procedure Note Interface, [...] Report Verified Date/Time: 03/18/2017 16:58:48 Reading Location: [facility] Ortho Consult Reading Room * Manual Differential (03/18/2017 1:16 PM) Only the most recent of 2 results within the time period is included. Component Value Ref Range Total Counted WBC Morphology Normal Platelet Morphology Normal RBC Morphology Normal Specimen Performing Laboratory Blood - Arm, Right [facility] [address] [place] [address] * Urinalysis w/Microscopic + Reflex to Culture - Clear Catch (03/18/2017 1:16 PM) Component Value Ref Range Color, UA Yellow Clarity, UA Hazy Specific [place], UA 1.016 1.001 - 1.035 pH, UA [...] Specimen Performing Laboratory Urine - Urine, Clean [facility] Catch [address] [place] [address] * CBC with platelet count + automated [...] Granulocytes-Relative Specimen Performing Laboratory Blood - Arm, [address] [address] * Screen, urine (03/18/2017 1:16 PM) Component Value Ref Range Preg Test, Ur Negative Specimen Performing Laboratory Urine - Urine, Voided [address] [address] * CBC with platelet count + automated diff (03/18/2017 1:16 PM) Only the most recent of 2 results within the time period is included. Specimen Performing Laboratory Blood Narrative The following orders were created for panel order CBC with platelet count + automated diff. Procedure Abnormality Status --------- - ------ CBC with platelet count ...[[id number]]AbnormalFinal result Manual Differential[[id number]] Final result Please view results for these tests on the individual orders. * Urine culture (03/18/2017 1:16 PM) Component Value Ref Range Result >100,000 col/mL skin kenia Specimen Performing Laboratory Urine - Urine, Clean [facility] Catch [address] [place] [address] * Lipase (03/18/2017 1:16 PM) Component Value Ref Range Lipase 28 8 - 78 U/L Specimen Performing Laboratory Blood - Arm, [address] [address] * Amylase (03/18/2017 1:16 PM) Only the most recent of 2 results within the time period is included. Component Value Ref Range Amylase 63 25 - 125 U/L Specimen Performing Laboratory Blood - Arm, [address] [address] * Liver Panel (03/18/2017 1:16 PM) Only [...] Specimen Performing Laboratory Blood - Arm, [place] [address] * Basic metabolic panel (Na, K+, Cl, [...] Specimen Performing Laboratory Blood - Arm, [place] [address] * RHYTHM STRIP - SCAN (12/28/2016 11:50 AM) * POC-Glucose meter (12/26/2016 12:11 PM) Only the most recent of 9 results within the time period is included. Component Value Ref Range POC-Glucose Meter 153 (H)Comment: TESTED AT [address] 70 - 110 mg /dL [place] [address] Specimen Performing [place] [address] * PERMANENT LAB REPORT - SCAN (12/26/2016 11:41 AM) Only the most recent of 2 results within the time period is included. * 2D Echo W/Doppler(CW/PW/Color) (12/26/2016 8:37 AM) Specimen Performing Laboratory [facility] Narrative Echocardiography Laboratory [address] [place] [address] Voice:[phone] Transthoracic Echocardiogram Pat.Name:LIV FOURNIER.ID:[id number] St.Date: 12/26/2016 Refer.MD:SABRINA HARDY Exam Time: 8:37:00 AMStudy Type:Echo Complete Height:63inWeight:160lb BSA: 1.76 m2 DOBAge:1984,31Y Sex: FEMALEBP:90 /50 HR:73 bpmSonogrphr: Blake Arceo [facility] Pat. Stat.:Inpatient Room:2038 Reason for Study:Acute Chest Pain / Suspected CAD History / Clinical:DVT, Thyroid disease, Finney's Disease Procedures:2D ECHO W/ DOPPLER (CW/PW/COLOR) SUMMARY: [...] & Cardiac Out LVOT2.15 cm Parasternal Long [place] Ao An 2.14 cm (1.4-2.6) LV%fs 30.8 [...] - 12/26/2016 5:27 PM CDT Echocardiography Laboratory [address] [place] [address] Voice: [phone] Transthoracic Echocardiogram Pat.Name: LIV FOURNIER Pat.ID: [id number] St.Date: 12/26/2016 Refer.MD: SABRINA HARDY Exam Time: 8:37:00 AM Study Type:Echo Complete Height: 63in Weight: 160lb BSA: 1.76 m2 Age: 4 1985,31Y Sex: FEMALE BP: 90/50 HR: 73 bpm Sonogrphr: Blake Arceo [facility] Pat. Stat.:Inpatient Room: 2038 Reason for Study:Acute [...] Cardiac Out LVOT 2.15 cm Parasternal Long [place] Ao An 2.14 cm (1.4-2.6) LV%fs 30.8 [...] 10.5 fL Specimen Performing Laboratory [place] [address] * ECG 12 lead (12/24/2016 9:29 PM) Only the most recent of 2 results within the time period is included. Specimen Performing Laboratory [employer] MUSE Narrative Ventricular Rate 96 BPM Atrial Rate 96 BPM P-R Interval 202 ms QRS Duration 98 ms Q-T Interval 380 ms QTC Calculation(Bazett) 480 ms P [place] 35 degrees R Stuart 45 degrees T [place] 57 degrees Normal sinus rhythm Nonspecific T [...] 380 ms QTC Calculation(Bazett) 480 ms P [place] 35 degrees R [place] 45 degrees T [place] 57 degrees Normal sinus rhythm Nonspecific T wave abnormality Abnormal ECG When compared with ECG of 08-JAN-2016 20:41, Nonspecific T wave abnormality now evident in Inferior leads Nonspecific T wave abnormality, worse in Anterolateral leads Confirmed by MD BRYON, BRANDON ([id number]) on 12/25/2016 10:45:04 PM * Urinalysis w/ Microscopic (12/24/2016 10:13 AM) Component Value Ref Range Color, UA Colorless Clarity, UA Clear Specific [place], UA 1.006 1.001 - 1.035 pH, UA [...] Specimen Performing Laboratory Urine - Urine, Clean [facility] Catch [address] [place] [address] * Blood culture #1 (12/24/2016 8:01 AM) Only the most recent of 3 results within the time period is included. Component Value Ref Range Result No growth in 5 days Specimen Performing Laboratory Blood - Arm, Right [address] [address] * Troponin I (12/24/2016 7:43 AM) Component Value Ref Range Troponin I <0.01 0.00 - 0.03 ng/mL Specimen Performing Laboratory Blood - Arm, Left [address] [address] Narrative Effective 06/03/2014: Reference Range Change New: [...] Specimen Performing Laboratory Blood - Arm, Left [facility] [address] [place] [address] Narrative Effective 06/03/2014: CK-MB Reference Range Change New: 0.0-6.6Previous: 0.0-4.9 CK-MB Reference Range: <6.7Normal 6.7-10.0Borderline >10.0 Abnormal * POCT , urine (12/23/2016 8:04 PM) Only the most recent of 2 results within the time period is included. Component Value Ref Range Test Urine, POC Negative Control line present?, Yes POC Background clear?, POC Yes UPT Cassette Lot #, POC [id number] UPT Cassette Expiration 09/13/2017 Date, POC Specimen Performing Laboratory Urine [facility] [address] [place] [address] * POCT urinalysis dipstick (12/23/2016 8:02 PM) Only the most recent of 2 results within the time period is included. Component Value Ref Range Glucose Urine, POC Negative Negative Bilirubin Urine, POC Negative Negative Ketones Urine, POC Negative Negative Specific [place] Urine, 1.010 SG Ratio 1.005 SG Ratio, [...] Negative POC Specimen Performing Laboratory Urine (Catheterized) [facility], [facility] [address] [place] [address] * ED ECG Interpretation (12/23/2016 5:16 PM) [...] normal. ST segments normal. T waves normal. [place] is normal. Other findings: no other findings. Clinical Impression: normal ECGECG reviewed and does not meet STEMI criteria. Patient tolerance: Patient tolerated the procedure well with no immediate complications * TSH/Free T4 If Indicated (12/23/2016 4:35 PM) Component Value Ref Range TSH 6.96 (H) 0.35 - 4.94 uIU/mL Specimen Performing Laboratory Blood [address] [address] * Calcium, Ionized (12/23/2016 4:35 PM) Component Value Ref Range Calcium, Ion 1.23 1.12 - 1.27 mmol/L pH, Blood 7.37 Specimen Performing Laboratory Blood [address] [address] * T4, free (12/23/2016 4:35 PM) Component Value Ref Range Free T4 1.02 0.70 - 1.48 ng/dL Specimen Performing Laboratory Blood [address] [address] * Type and screen, automated ([facility] and [facility] only) (12/23/2016 3:41 PM) Component Value Ref Range Ab Scrn NEGATIVE Specimen Performing Laboratory Blood [address] [address] * ABORH, manual (12/23/2016 3:41 PM) Component Value Ref Range ABO Grouping O Rh Factor POS Specimen Performing Laboratory Blood [address] [address] * CT abdomen pelvis without contrast (11/24/2016 [...] MD Report Verified Date/Time:11/24/2016 23:49:06 Reading Location: [address] Consult Reading Room Procedure Note Interface, [...] Report Verified Date/Time: 11/24/2016 23:49:06 Reading Location: [facility] [id number] Consult Reading Room after 11/13/2016
--- OUTSIDE RECORDS SUMMARY | 2017-11-14 09:40 | XMS REPORT | Clinical Summary ---
Author Author JENNIFER [facility] Address Unknown Phone Unavailable Care Team Providers Care Family Life Counselor Name Role Phone PCP Unavailable Allergies Active [...] 7 days. 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 Specimen Performing Laboratory [email or web address] FINAL REPORT ABDOMINAL AND PELVIS CT DATED [...] MD Report Verified Date/Time:03/18/2017 16:58:48 Reading Location: [facility] C0[facility] Ortho Consult Reading Room Procedure Note [...] Report Verified Date/Time: 03/18/2017 16:58:48 Reading Location: [facility] C0[facility] Ortho Consult Reading Room * Manual Differential (03/18/2017 1:16 PM) Only the most recent of 2 results within the time period is included. Component Value Ref Range Total Counted WBC Morphology Normal Platelet Morphology Normal RBC Morphology Normal Specimen Performing Laboratory Blood - Arm, Right [facility] [address] [place] [address] * Urinalysis w/Microscopic + Reflex to Culture - Clear Catch (03/18/2017 1:16 PM) Component Value Ref Range Color, UA Yellow Clarity, UA Hazy Specific [place], UA 1.016 1.001 - 1.035 pH, UA [...] Specimen Performing Laboratory Urine - Urine, Clean [facility] Catch [address] [place] [address] * CBC with platelet count + automated [...] Granulocytes-Relative Specimen Performing Laboratory Blood - Arm, [address] [address] * Screen, urine (03/18/2017 1:16 PM) Component Value Ref Range Preg Test, Ur Negative Specimen Performing Laboratory Urine - Urine, Voided [address] [address] * CBC with platelet count + automated diff (03/18/2017 1:16 PM) Only the most recent of 2 results within the time period is included. Specimen Performing Laboratory Blood Narrative The following orders were created for panel order CBC with platelet count + automated diff. Procedure Abnormality Status --------- - ------ CBC with platelet count ...[[id number]]AbnormalFinal result Manual Differential[[id number]] Final result Please view results for these tests on the individual orders. * Urine culture (03/18/2017 1:16 PM) Component Value Ref Range Result >100,000 col/mL skin kenia Specimen Performing Laboratory Urine - Urine, Clean [facility] Catch [address] [place] [address] * Lipase (03/18/2017 1:16 PM) Component Value Ref Range Lipase 28 8 - 78 U/L Specimen Performing Laboratory Blood - Arm, [address] [address] * Amylase (03/18/2017 1:16 PM) Only the most recent of 2 results within the time period is included. Component Value Ref Range Amylase 63 25 - 125 U/L Specimen Performing Laboratory Blood - Arm, [address] [address] * Liver Panel (03/18/2017 1:16 PM) Only [...] Specimen Performing Laboratory Blood - Arm, [place] [address] * Basic metabolic panel (Na, K+, Cl, [...] Specimen Performing Laboratory Blood - Arm, [place] [address] * RHYTHM STRIP - SCAN (12/28/2016 11:50 AM) * POC-Glucose meter (12/26/2016 12:11 PM) Only the most recent of 9 results within the time period is included. Component Value Ref Range POC-Glucose Meter 153 (H)Comment: TESTED AT [address] 70 - 110 mg /dL [place] [address] Specimen Performing [place] [address] * PERMANENT LAB REPORT - SCAN (12/26/2016 11:41 AM) Only the most recent of 2 results within the time period is included. * 2D Echo W/Doppler(CW/PW/Color) (12/26/2016 8:37 AM) Specimen Performing Laboratory [facility] Narrative Echocardiography Laboratory [address] [place] [address] Voice:[phone] Transthoracic Echocardiogram Pat.Name:LIV FOURNIER.ID:[id number] St.Date: 12/26/2016 Refer.MD:SABRINA HARDY Exam Time: 8:37:00 AMStudy Type:Echo Complete Height:63inWeight:160lb BSA: 1.76 m2 DOBAge:1984,31Y Sex: FEMALEBP:90 /50 HR:73 bpmSonogrphr: Blake Areco [facility] Pat. Stat.:Inpatient Room:2038 Reason for Study:Acute Chest Pain / Suspected CAD History / Clinical:DVT, Thyroid disease, Hansford's Disease Procedures:2D ECHO W/ DOPPLER (CW/PW/COLOR) SUMMARY: [...] & Cardiac Out LVOT2.15 cm Parasternal Long [place] Ao An 2.14 cm (1.4-2.6) LV%fs 30.8 [...] - 12/26/2016 5:27 PM CDT Echocardiography Laboratory [address] [place] [address] Voice: [phone] Transthoracic Echocardiogram Pat.Name: LIV FOURNIER Pat.ID: [id number] St.Date: 12/26/2016 Refer.MD: SABRINA HARDY Exam Time: 8:37:00 AM Study Type:Echo Complete Height: 63in Weight: 160lb BSA: 1.76 m2 Age: 4 1985,31Y Sex: FEMALE BP: 90/50 HR: 73 bpm Sonogrphr: Blake Arceo [facility] Pat. Stat.:Inpatient Room: 2038 Reason for [...] Cardiac Out LVOT 2.15 cm Parasternal Long [place] Ao An 2.14 cm (1.4-2.6) LV%fs 30.8 [...] 10.5 fL Specimen Performing [place] [address] * ECG 12 lead (12/24/2016 9:29 PM) Only the most recent of 2 results within the time period is included. Specimen Performing Laboratory [employer] MUSE Narrative Ventricular Rate 96 BPM Atrial Rate 96 BPM P-R Interval 202 ms QRS Duration 98 ms Q-T Interval 380 ms QTC Calculation(Bazett) 480 ms P [place] 35 degrees R [place] 45 degrees T [place] 57 degrees Normal sinus rhythm Nonspecific T [...] 380 ms QTC Calculation(Bazett) 480 ms P [place] 35 degrees R [place] 45 degrees T [place] 57 degrees Normal sinus rhythm Nonspecific T wave abnormality Abnormal ECG When compared with ECG of 08-JAN-2016 20:41, Nonspecific T wave abnormality now evident in Inferior leads Nonspecific T wave abnormality, worse in Anterolateral leads Confirmed by MD BRYON, BRANDON ([id number]) on 12/25/2016 10:45:04 PM * Urinalysis w/ Microscopic (12/24/2016 10:13 AM) Component Value Ref Range Color, UA Colorless Clarity, UA Clear Specific [place], UA 1.006 1.001 - 1.035 pH, UA [...] Specimen Performing Laboratory Urine - Urine, Clean [facility] Catch [address] [place] [address] * Blood culture #1 (12/24/2016 8:01 AM) Only the most recent of 3 results within the time period is included. Component Value Ref Range Result No growth in 5 days Specimen Performing Laboratory Blood - Arm, Right [address] [address] * Troponin I (12/24/2016 7:43 AM) Component Value Ref Range Troponin I <0.01 0.00 - 0.03 ng/mL Specimen Performing Laboratory Blood - Arm, Left [address] [address] Narrative Effective 06/03/2014: Reference Range Change New: [...] Specimen Performing Laboratory Blood - Arm, Left [facility] [address] [place] [address] Narrative Effective 06/03/2014: CK-MB Reference Range Change New: 0.0-6.6Previous: 0.0-4.9 CK-MB Reference Range: <6.7Normal 6.7-10.0Borderline >10.0 Abnormal * POCT , urine (12/23/2016 8:04 PM) Only the most recent of 2 results within the time period is included. Component Value Ref Range Test Urine, POC Negative Control line present?, Yes POC Background clear?, POC Yes UPT Cassette Lot #, POC [id number] UPT Cassette Expiration 09/13/2017 Date, POC Specimen Performing Laboratory Urine [facility] [address] [place] [address] * POCT urinalysis dipstick (12/23/2016 8:02 PM) Only the most recent of 2 results within the time period is included. Component Value Ref Range Glucose Urine, POC Negative Negative Bilirubin Urine, POC Negative Negative Ketones Urine, POC Negative Negative Specific [place] Urine, 1.010 SG Ratio 1.005 SG Ratio, [...] Negative POC Specimen Performing Laboratory Urine (Catheterized) [facility], [facility] [address] [place] [address] * ED ECG Interpretation (12/23/2016 5:16 PM) [...] normal. ST segments normal. T waves normal. [place] is normal. Other findings: no other findings. Clinical Impression: normal ECGECG reviewed and does not meet STEMI criteria. Patient tolerance: Patient tolerated the procedure well with no immediate complications * TSH/Free T4 If Indicated (12/23/2016 4:35 PM) Component Value Ref Range TSH 6.96 (H) 0.35 - 4.94 uIU/mL Specimen Performing Laboratory Blood [address] [address] * Calcium, Ionized (12/23/2016 4:35 PM) Component Value Ref Range Calcium, Ion 1.23 1.12 - 1.27 mmol/L pH, Blood 7.37 Specimen Performing Laboratory Blood [address] [address] * T4, free (12/23/2016 4:35 PM) Component Value Ref Range Free T4 1.02 0.70 - 1.48 ng/dL Specimen Performing Laboratory Blood [address] [address] * Type and screen, automated ([facility] and [facility] only) (12/23/2016 3:41 PM) Component Value Ref Range Ab Scrn NEGATIVE Specimen Performing Laboratory Blood [address] [address] * ABORH, manual (12/23/2016 3:41 PM) Component Value Ref Range ABO Grouping O Rh Factor POS Specimen Performing Laboratory Blood [address] [address] * CT abdomen pelvis without contrast (11/24/2016 [...] MD Report Verified Date/Time:11/24/2016 23:49:06 Reading Location: [address] Consult Reading Room Procedure Note Interface, [...] Report Verified Date/Time: 11/24/2016 23:49:06 Reading Location: [facility] [id number] Consult Reading Room after 11/13/2016
--- OUTSIDE RECORDS SUMMARY | 2017-11-14 09:40 | XMS REPORT | Clinical Summary ---
Author Author [facility] Organization [facility] Address Unknown Phone Unavailable Care Team Providers Care Smt Technician Name Role Phone Robert Stokes MD PCP [...] tablet daily. PT throw up today 08/13/2017 [id number] Take 1 tablet by mouth Active n-dss [...] Date Type Specialty Care Team Description 09/13/2017 [facility] General Surgery Rosas Perez MD Addisonian crisis - Encounter Ricardo Garcia DO (Primary Dx); 09/15/2017 Stanley Murrieta MD Intractable vomiting with KohMikey mendez MD nausea, unspecified vomiting type; Left flank pain; Dehydration 08/02/2017 [facility] Internal Medicine Jewel Chamberlain MD Addisonian [...] Taken Blood Pressure 114/69 09/15/2017 7:34 AM [employer] Pulse 109 09/15/2017 7:34 AM [employer] Temperature 36.7 C (98 F) 09/15/2017 7:34 AM [employer] Respiratory Rate 16 09/15/2017 7:34 AM [employer] Oxygen Saturation 99% 09/15/2017 7:34 AM [employer] Inhaled Oxygen - - Concentration Weight 65.8 kg (145 lb) 09/13/2017 12:42 PM [employer] Height 157.5 cm (5' 2") 09/13/2017 12:42 PM [employer] Body Mass Index 26.52 09/13/2017 12:42 PM [employer] Plan of Treatment Health Maintenance Due Date Last Done Comments PAP SMEAR 01/02/2004 INFLUENZA VACCINE 02/14/2018 Procedures Procedure Name Priority Date/Time Associated Diagnosis Comments MUSCULOSKELETAL Routine 07/16/2017 Results for this ULTRASOUND 10:36 AM [employer] procedure are in the results section. after [...] None seen UA Specimen Performing Laboratory Urine [facility] DEPARTMENT OF PATHOLOGY AND GENOMIC MEDICINE [address] [place] [address] [place] [address] * hCG qualitative, urine screen (09/15/2017 12:30 AM) Only the most recent of 2 results within the time period is included. Component Value Ref Range hCG qualitative, urine Negative Negative Comment: The manufacturers stated sensitivity of HcG test for serum is >/=10 mIU/ml and urine is >/=20mIU/ml. Specimen Performing Laboratory Urine [facility] DEPARTMENT OF PATHOLOGY AND GENOMIC MEDICINE [id number] [place] [address] [place] [address] * Estimated GFR (09/14/2017 6:23 AM) Only [...] and Americans. Specimen Performing Laboratory Plasma specimen [facility] DEPARTMENT OF PATHOLOGY AND GENOMIC MEDICINE [id number] [place] [address] [place] [address] * CBC with platelet and differential (09/14/2017 [...] (promyelocytes, myelocytes, metamyelocytes) Specimen Performing Laboratory Blood [facility] PATHOLOGY AND [facility] [address] [place] [address] * Basic metabolic panel (09/14/2017 6:23 AM) [...] 10.2 mg/dL Specimen Performing Laboratory Plasma specimen [facility] OF PATHOLOGY AND [facility] [address] [place] [address] * Troponin (09/13/2017 5:26 PM) Only the [...] myocardial injury. Specimen Performing Laboratory Plasma specimen [facility] DEPARTMENT OF PATHOLOGY AND GENOMIC MEDICINE [address] [place] [address] * ECG 12 lead (09/13/2017 3:28 PM) Only the most recent of 3 results within the time period is included. Component Value Ref Range Ventricular rate 95 Atrial rate 95 WV interval 156 QRSD interval 88 QT interval 356 QTC interval 447 P axis 1 49 QRS axis 1 70 T wave axis 38 EKG impression Normal sinus rhythm-Normal ECG-In automated comparison with ECG of 02-AUG-2017 09:52,-No significant change was found- Specimen Performing Laboratory [facility] M[facility] [address] [place] [address] * CT Abdomen Pelvis W Wo Contrast (09/13/2017 3:07 PM) Specimen Performing Laboratory [facility] [address] [place] [address] Narrative EXAMINATION:CT ABDOMEN PELVIS W WO CONTRAST CLINICAL HISTORY:L flank painpossible Worth's crisis vs renal stone vs perinephric absces [...] visualized not unexpected given the history of Worth's disease. No definitive calcifications in the area of the adrenal glands are visualized. 4. Post cholecystectomy. 5. Small cyst within the liver adjacent to the falciform ligament [id number] Procedure Note Hm Interface, Radiology Results Incoming - 09/13/2017 3:37 PM [employer] EXAMINATION: CT ABDOMEN PELVIS W WO CONTRAST [...] visualized not unexpected given the history of Worth's disease. No definitive calcifications in the area of the adrenal glands are visualized. 4. Post cholecystectomy. 5. Small cyst within the liver adjacent to the falciform ligament [id number] * Partial thromboplastin time, activated (09/13/2017 1:50 PM) Only the most recent of 2 results within the time period is included. Component Value Ref Range PTT 29.9 23.0 - 36.0 sec Comment: PTT therapeutic range for unfractionated heparin is 61.0-112.0 seconds which corresponds to Anti-Xa 0.3-0.7 U/ml. Specimen Performing Laboratory Blood [facility] PATHOLOGY [address] [place] [address] * Prothrombin time with INR (09/13/2017 1:50 [...] vein thrombosis/pulmonary embolism. Specimen Performing Laboratory Blood [facility] PATHOLOGY AND [address] [place] [address] * hCG qualitative, serum screen (09/13/2017 1:50 PM) Component Value Ref Range hCG qualitative, serum Negative Specimen Performing Laboratory Blood [facility] PATHOLOGY [address] [place] [address] * Magnesium level (09/13/2017 1:50 PM) Only the most recent of 2 results within the time period is included. Component Value Ref Range Magnesium 2.2 1.6 - 2.6 mg/dL Specimen Performing Laboratory Plasma specimen [facility] PATHOLOG[facility] [address] [place] [address] * Lipase level (09/13/2017 1:50 PM) Only the most recent of 3 results within the time period is included. Component Value Ref Range Lipase 41 13 - 60 U/L Specimen Performing Laboratory Plasma specimen [facility] PATHOLOGY [address] [place] [address] * Hepatic function panel (09/13/2017 1:50 PM) [...] 35 U/L Specimen Performing Laboratory Plasma specimen [facility] DEPARTMENT OF PATHOLOGY AND GENOMIC MEDICINE [address] [place] [address] * ECG ED Preliminary Interpretation - NOT AN ORDER (09/13/2017 1:05 PM) Only the most recent of 3 results within the time period is included. Dora Perez MD 09/13/20176:34 PM ECG ED Preliminary Interpretation - Not an Order Performed by: ROSAS PEREZ Authorized by: ROSAS PEREZ ECG reviewed by ED Physician in the absence of a mortgage closing clerk: yes Previous ECG: Previous ECG:Compared to [...] 11 ug/dl Specimen Performing Laboratory Plasma specimen [facility] DEPARTMENT OF PATHOLOGY AND GENOMIC MEDICINE [address] [place] [address] * Comprehensive metabolic panel (08/03/2017 5:15 AM) [...] 5.5 (L) 6.3 - 8.3 g/dL Comment: [place] 4.6-7.0 g/dL 1 week 4.4-7.6 g/dL 7 [...] 1.2 mg/dL Specimen Performing Laboratory Plasma specimen [facility] PATHOLOGY AND [facility] [id number] [place] [address] [place] [address] * hCG quantitative, serum (08/02/2017 1:52 PM) Component Value Ref Range hCG quantitative, serum 1 0 - 5 mIU/mL Comment: Reference range for HCG Quant applies to males and non- females. Post Menopausal 0.0 - 8.1 mIU/mL Specimen Performing Laboratory Plasma specimen [facility] DEPARTMENT OF PATHOLOGY AND [facility] MEDICINE [address] [place] [address] * CT Abdomen Pelvis W Contrast (08/02/2017 1:02 PM) Specimen Performing Laboratory [facility] [address] [place] [address] Narrative EXAMINATION:CT ABDOMEN PELVIS W CONTRAST CLINICAL [...] No acute abnormality. IMPRESSION: No acute abnormality. [id number] Procedure Note [facility], Radiology Results Incoming - 08/02/2017 1:23 PM [employer] EXAMINATION: CT ABDOMEN PELVIS W CONTRAST CLINICAL [...] No acute abnormality. IMPRESSION: No acute abnormality. [facility]-[id number] * Adrenocorticotropic hormone (08/02/2017 11:35 AM) Component Value Ref Range Adrenocorticotropic 99.1 (H) 7.2 - 63.3 pg/mL hormone Specimen Performing Laboratory Blood [facility] DEPARTMENT OF PATHOLOGY AND GENOMIC MEDICINE [address] [place] [address] * Influenza antigen (08/02/2017 9:45 AM) Component Value Ref Range Influenza antigen Negative for Influenza A/B antigen. Comment: Specimen Information Specimen Source: Nares Specimen Site: Not specified Specimen Performing Laboratory Nares - Not specified [facility] PATHOLOGY [address] [place] [address] * Smear review (08/02/2017 9:40 AM) Component Value Ref Range Platelet slide review Decreased (A) Specimen Performing Laboratory [facility] OF PATHOLOGY AND [address] [place] [address] * Thyroid stimulating hormone (08/02/2017 9:40 AM) Component Value Ref Range TSH 3.17 0.27 - 4.20 uIU/mL Specimen Performing Laboratory Plasma specimen [facility] PATHOLOGY AND [address] [place] [address] * T4, free (08/02/2017 9:40 AM) Component Value Ref Range T4, free 1.04 0.90 - 1.70 ng/dL Specimen Performing Laboratory Plasma specimen [facility] PATHOLOGY AND [address] [place] [address] * MUSCULOSKELETAL ULTRASOUND (07/16/2017 10:36 AM) Narrative [...] 4.5 mg/dL Specimen Performing Laboratory Plasma specimen [facility] DEPARTMENT PATHOLOGY [address] [place] [address] after 11/13/2016 Insurance Payer Benefit Subscriber ID Type Phone Address Plan / Group MEDICAID MEDICAID xxxxxxxxx [place] [address]
[2017-11-14] MEDS ORDERED: FAMOTIDINE 20 MG/2 ML VIAL IV STA (09:55)
[2017-11-14] MEDS ORDERED: ONDANSETRON HCL INJ 2 MG/ML VIAL IV STA (09:55)
[2017-11-14] MEDS ORDERED: HYDROCORTISONE SOD SUCCINATE 250 MG VIAL ONE (09:56)
[2017-11-14] MEDS ORDERED: SODIUM CHLORIDE 0.9% 1000ML 1,000 ML IV ONE (10:00)
[2017-11-14] MEDS ORDERED: SODIUM CHLORIDE 0.9% IV ONE (10:00)
[2017-11-14] MEDS ORDERED: HYDROCORTISONE SOD SUCCINATE IV ONE (10:00)
[2017-11-14] MEDS ORDERED: ONDANSETRON HCL 4 MG ORAL DISINTEGRATING TAB ONE (10:12)
[2017-11-14] MEDS ORDERED: KETOROLAC TROMETHAMINE 30 MG/ML VIAL IV STA (10:12)
[2017-11-14] MEDS ORDERED: HYDROCORTISONE SOD SUCCINATE 100 MG VIAL IV ONE (10:15)
[2017-11-14 10:16] LABS: BASOPHILS % 0.3 % (0.0-1.0); EOSINOPHILS % 0.4 % (0.0-6.0); HEMATOCRIT 36.7 % (34.2-44.1); HEMOGLOBIN 11.9 g/dL (12.0-16.0); LYMPHOCYTES # (AUTO) 3.5 (1.0-3.2); LYMPHOCYTES % 35.3 % (18.0-39.1); MEAN CORPUSCULAR HEMOGLOBIN 28.6 pg (28-32); MEAN CORPUSCULAR HGB CONC 32.4 g/dL (31-35); MEAN CORPUSCULAR VOLUME 88.2 fL (81-99); MONOCYTES # (AUTO) 0.8 (0.2-0.8); MONOCYTES % 8.2 % (4.4-11.3); NEUTROPHILS # (AUTO) 5.5 (2.1-6.9); NEUTROPHILS % 55.3 % (38.7-80.0); PLATELET COUNT 351 x10e3/uL (140-360); RED BLOOD COUNT 4.16 x10e6/uL (3.6-5.1); RED CELL DISTRIBUTION WIDTH 14.6 % (11.7-14.4)
[2017-11-14] MEDS ORDERED: KETOROLAC TROMETHAMINE 30 MG/ML VIAL ONE (10:17)
[2017-11-14 10:33] LABS: ALANINE AMINOTRANSFERASE 10 IU/L (0-55); ALBUMIN 3.3 g/dL (3.5-5.0); ALKALINE PHOSPHATASE 59 IU/L (40-150); ANION GAP 8.9 mmol/L (8-16); BLOOD UREA NITROGEN 9 mg/dL (7-26); BUN/CREATININE RATIO 11 (6-25); CALCIUM 10.4 mg/dL (8.4-10.2); CARBON DIOXIDE 25 mmol/L (22-29); CHLORIDE 108 mmol/L (98-107); CREATININE, SERUM 0.82 mg/dL (0.57-1.11); EST GLOMERULAR FILTRATION RATE > 60 ML/MIN (60-); GLUCOSE 81 mg/dL (74-118); MAGNESIUM 1.7 MG/DL (1.3-2.1); POTASSIUM 3.9 mmol/L (3.5-5.1); SODIUM 138 mmol/L (136-145)
[2017-11-14] MEDS: METOCLOPRAMIDE HCL 10 MG/2ML VIAL IV ONE ×2 (12:13→13:31)
[2017-11-14 12:55] LABS: CLARITY,URINE SL CLOUDY (CLEAR); COLOR,URINE YELLOW (YELLOW); KETONES,URINE NEGATIVE (NEGATIVE); LEUKOCYTE ESTERASE ,URINE NEGATIVE (NEGATIVE); NITRITE,URINE NEGATIVE (NEGATIVE); PROTEIN,URINE DIPSTICK TRACE (NEGATIVE)
[2017-11-14 12:56] LABS: BILIRUBIN,URINE NEGATIVE (NEGATIVE); URINE UROBILINOGEN 0.2 mg/dL (0.2 - 1)
[2017-11-14] MEDS ORDERED: MORPHINE SULFATE 5 MG/ML VIAL IV ONE ×2 (13:00→15:45)
[2017-11-14] MEDS ORDERED: DICYCLOMINE HCL 20 MG/2 ML VIAL IM ONE (13:00)
[2017-11-14 13:04] LABS: BACTERIA,URINE FEW /HPF; CALCIUM OXALATE CRYSTALS,UR MODERATE (FEW); EPITHELIAL CELLS,URINE MODERATE /LPF; RBC,URINE 0-5 /HPF (0-5); WBC,URINE (MAN) 0-5 /HPF (0-5)
[2017-11-14] MEDS ORDERED: MORPHINE SULFATE 2 MG/ML SYR IV STA (13:06)
--- NOTE | 2017-11-14 13:06 | Diagnostic Imaging Report ---
Pelvic ultrasound, 11/14/2017 Clinical history: Abdominal pain; history of ovarian cyst on the right. Clinical concern for ovarian torsion. Comparison: None Technique: Grayscale, color Doppler and spectral Doppler ultrasound and waveform analysis. Transvaginal ultrasound necessary for evaluation of the ovaries. Findings: Anteverted uterus measuring 8.2 x 4.7 x 5.3 cm. Endometrial thickness 9 mm. Right ovary: 3.5 x 3 x 3.9 cm. 3.2 x 2.8 x 2.3 cm anechoic, simple right ovarian cyst. Left ovary: 2.6 x 1.5 x 3.7 cm. The left adnexa contains a heterogeneous 4 x 2.1 x 1.9 cm structure with anechoic, hyperechoic and hypoechoic components which is lateral to the otherwise normal-appearing ovary. Both ovaries demonstrate normal arterial and venous waveforms. Impression: 1. No evidence of ovarian torsion. 2. 4 cm heterogeneous structure in the left adnexa. Differential diagnosis includes dense stool and/or mass. This report was generated with voice-recognition technology. Errors in fast brim pouncer can occur. Please interpret accordingly and contact a radiologist if there are any questions regarding the report. Signed by: Dr. Gaetano Greenberg M.D. on 11/14/2017 1:02 PM
--- NOTE | 2017-11-14 13:06 | Diagnostic Imaging Report ---
Pelvic ultrasound, 11/14/2017 Clinical history: Abdominal pain; history of ovarian cyst on the right. Clinical concern for ovarian torsion. Comparison: None Technique: Grayscale, color Doppler and spectral Doppler ultrasound and waveform analysis. Transvaginal ultrasound necessary for evaluation of the ovaries. Findings: Anteverted uterus measuring 8.2 x 4.7 x 5.3 cm. Endometrial thickness 9 mm. Right ovary: 3.5 x 3 x 3.9 cm. 3.2 x 2.8 x 2.3 cm anechoic, simple right ovarian cyst. Left ovary: 2.6 x 1.5 x 3.7 cm. The left adnexa contains a heterogeneous 4 x 2.1 x 1.9 cm structure with anechoic, hyperechoic and hypoechoic components which is lateral to the otherwise normal-appearing ovary. Both ovaries demonstrate normal arterial and venous waveforms. Impression: 1. No evidence of ovarian torsion. 2. 4 cm heterogeneous structure in the left adnexa. Differential diagnosis includes dense stool and/or mass. This report was generated with voice-recognition technology. Errors in security technician can occur. Please interpret accordingly and contact a radiologist if there are any questions regarding the report. Signed by: Dr. Gaetano Greenberg M.D. on 11/14/2017 1:02 PM
[2017-11-14] MEDS ORDERED: DIATRIZOATE MEGL/DIATRIZOA SOD 30 ML BTL PO ONE (13:39)
[2017-11-14] MEDS ORDERED: METOCLOPRAMIDE HCL 10 MG/2ML VIAL IV ONE (15:45)
[2017-11-14] MEDS ORDERED: MORPHINE SULFATE 2 MG/ML SYR IV ONE (15:45)
--- NOTE | 2017-11-14 17:39 | Diagnostic Imaging Report ---
PROCEDURE: CT ABDOMEN AND PELVIS WITH CONTRAST TECHNIQUE: The abdomen and pelvis were scanned utilizing a multidetector helical scanner from the diaphragm to the lesser trochanter after the IV administration of 100 cc of Isovue 370 and the oral administration of dilute Gastrografin. Coronal and sagittal multiplanar reformations were obtained. COMPARISON: Patients [facility], , US TRANSVAGINAL, 11/14/2017, 11:18. INDICATIONS: LOWER ABDOMINAL PAIN FINDINGS: LOWER THORAX: Unremarkable HEPATOBILIARY: 1.2 x 1.4 cm simple cyst in hepatic segment IVB (series 2 image 18). No other focal hepatic lesions. No biliary ductal dilation. Cholecystectomy clips. SPLEEN: No splenomegaly. PANCREAS: No focal masses or ductal dilatation. ADRENALS: No adrenal nodules. KIDNEYS/URETERS: No hydronephrosis, stones, or solid mass lesions. PELVIC ORGANS/BLADDER: The bladder is decompressed, but grossly unremarkable. Small amount of endometrial and endocervical fluid. 3.2 x 2.6 cm well-circumscribed fluid density follicular cyst in the right ovary. The left ovary is unremarkable. No left adnexal masses are identified. A portion of the sigmoid colon is adjacent to the left ovary. PERITONEUM / RETROPERITONEUM: No free air or fluid. LYMPH NODES: No lymphadenopathy. VESSELS: Unremarkable. GI TRACT: No bowel dilation or evidence of obstruction. Appendix is identified, and normal in caliber (coronal image 50). Moderate amount of retained stool in the ascending and transverse colon. No pericolonic inflammatory changes. Stomach is unremarkable. BONES AND SOFT TISSUES: No aggressive lytic lesion. Soft tissues are grossly unremarkable. IMPRESSION: 1. No acute abdominopelvic abnormalities. 2. No left adnexal masses are identified. The left ovary is unremarkable. A portion of decompressed sigmoid colon is adjacent to the left ovary and likely corresponds to the finding on ultrasound performed same date. 3. 3.2 cm right ovarian simple follicular cyst. No further followup is indicated. Baron Henriquez M.D. Dictated by: Baron Henriquez M.D. on 11/14/2017 at 17:40 Electronically approved by: Baron Henriquez M.D. on 11/14/2017 at 17:40
[2017-11-14] MEDS ORDERED: SODIUM CHLORIDE 0.9% 50ML 50 ML ONE (20:28)
[2017-11-14] MEDS ORDERED: IOPAMIDOL 370 MG/ML 200 ML INFUS..BTL INJ ONE (20:28)
== END 2017-11-14 18:34 | disposition home or self-care (01) ==
LOC: ER 09:37
DX: N83.201 Unspecified ovarian cyst, right side (principal); R10.2 Pelvic and perineal pain
CPT/HCPCS: 36415; 74177; 76830; 80053; 81001; 82533; 83735; 84100; 84443; 84702; 85025; 93976; 99284; J0500; J1720; J1885; J2270; J2765; J7030; Q9967